=== PATIENT | female | born 1945 | race Caucasian/White ===

== ENCOUNTER 2016-10-03 16:46 | Inpatient (IN) | payer OTHER, BC ==
[2016-10-03 17:08] VITALS: BMI 24.7
--- NOTE | 2016-10-03 17:08 | PDOC ---
[id number]: Clinical Condition - History of Present Illness Initial Comments: 10/03/16 17:28 The patient is a 71 year old female with history of COPD, schizophrenia, anxiety /depression, sent from [facility] s/p fall with head injury. The patient is unable to describe the mechanism of the fall, but presents with pain, swelling, and bruising to her left forehead. No LOC. On evaluation, the patient complains of difficulty breathing. Patient noted to have O2 sat of 94 on 2L O2. No fever or chills. No chest pain. No wheezing or hemoptysis. No nausea, vomiting, or diarrhea. No headache, visual changes, paresthesias, or acute focal weakness. History limited secondary to patient's clinical condition. <Xiao Farrar - Last Filed: 10/03/16 20:08> <Betsy Cunningham - Last Filed: 10/03/16 20:14> - General Chief Complaint: Injury Stated Complaint: shortness of breath Time Seen by Provider: 10/03/16 17:00 Past History <Xiao Farrar - Last Filed: 10/03/16 20:08> - Past Medical History COPD: Yes - Psycho/Social/Smoking Cessation Hx Anxiety: Yes Suicidal Ideation: No Smoking Status: No Smoking History: Former smoker Have you smoked in the past 12 months: No Number of Cigarettes Smoked Daily: 0 If you are a former smoker, when did you quit?: 3 years ago Information on smoking cessation initiated: No Hx Alcohol Use: No Drug/Substance Use Hx: No Substance Use Type: None Hx Substance Use Treatment: No <Betsy Cunningham - Last Filed: 10/03/16 20:14> - Past Medical History Allergies/Adverse Reactions: Allergies Allergy/AdvReac Type Severity Reaction Status Date / Time penicillinase Allergy Unknown Verified 10/03/16 17:03 Home Medications: Ambulatory Orders Acetaminophen [Tylenol] 650 mg PO QID 10/03/16 Lorazepam [Ativan] 1 mg PO TID 10/03/16 Mirtazapine [Remeron -] 30 mg PO DAILY 10/03/16 Nitroglycerin [Nitrostat] 0.4 mg SL PRN PRN 10/03/16 Pantoprazole Sodium 40 mg PO DAILY 10/03/16 Sodium Chloride 1,000 gm PO TID 10/03/16 Tiotropium [place] [Spiriva] 18 mcg IH DAILY 10/03/16 Verapamil HCl [Verapamil ER] 120 mg PO DAILY 10/03/16 Review of Systems - Review of Systems Able to Perform ROS?: Yes Comments:: 10/03/16 17:34 CONSTITUTIONAL: Absent: fever, chills, diaphoresis, generalized weakness, malaise, loss of appetite HEENT: Absent: rhinorrhea, nasal congestion, throat pain, throat swelling, difficulty swallowing, mouth swelling, ear pain, eye pain, visual Changes CARDIOVASCULAR: Absent: chest pain, syncope, palpitations, irregular heart rate, lightheadedness , peripheral edema RESPIRATORY: Present: dyspnea Absent: cough, wheezing, stridor, hemoptysis GASTROINTESTINAL: Absent: abdominal pain, abdominal distension, nausea, vomiting, diarrhea, constipation, melena, hematochezia GENITOURINARY: Absent: dysuria, frequency, urgency, hesitancy, hematuria, flank pain, genital pain MUSCULOSKELETAL: Absent: myalgia, arthralgia, joint swelling SKIN: Present: pain, swelling, bruising to l forehead Absent: rash, itching, pallor HEMATOLOGIC/IMMUNOLOGIC: Absent: easy bleeding, easy bruising, lymphadenopathy, frequent infections ENDOCRINE: Absent: unexplained weight gain, unexplained weight loss, heat intolerance, cold intolerance NEUROLOGIC: Absent: headache, focal weakness or paresthesias, dizziness, unsteady gait, seizure, mental status changes, bladder or bowel incontinence PSYCHIATRIC: Present: +anxiety Absent: suicidal or homicidal ideation, hallucinations. <Xiao Farrar - Last Filed: 10/03/16 20:08> *Physical Exam - Vital Signs Last Vital Signs Temp Pulse Resp BP Pulse Ox 98.5 F 72 32 H 124/60 93 L 10/03/16 17:03 10/03/16 17:03 10/03/16 17:03 10/03/16 17:03 10/03/16 17:03 - Physical Exam Comments: 10/03/16 17:36 GENERAL: Well developed, well nourished. Awake and alert. Follows simple commands. HEENT: Normocephalic. 8 cm ecchymoses to L forehead with an overlying superficial laceration. PERRLA, EOMI. No conjunctival pallor. Sclera are non-icteric. Moist mucous membranes. Oropharynx is clear. NECK: Supple. Full ROM. No JVD. Carotid pulses 2+ and symmetric, without bruits. No thyromegaly. No lymphadenopathy. CARDIOVASCULAR: Regular rate and rhythm. No murmurs, rubs, or gallops. Distal pulses are 2+ and symmetric. PULMONARY: Mild respiratory distress. Increased respiratory rate. Diffuse rhonchi and rales in all lung jennings. ABDOMINAL: Soft, protuberant. Non-tender. No rebound or guarding. No organomegaly. Normoactive bowel sounds. MUSCULOSKELETAL Normal range of motion at all joints. No bony deformities or tenderness. No CVA tenderness. No cervical or midline spiny tenderness. EXTREMITIES: +1 pitting edema of the lower extremities bilaterally. No cyanosis. No clubbing. No calf tenderness. SKIN: Warm and dry. Normal capillary refill. No rashes. No jaundice. NEUROLOGICAL: Alert, awake, appropriate. Cranial nerves 2-12 intact. No deficits to light touch and temperature in face, upper extremities and lower extremities. Contracted left arm. Resting tremor in the right foot. Normal speech. Gait deferred. PSYCHIATRIC: Cooperative. Good eye contact. Appropriate mood and affect. <Xiao Farrar - Last Filed: 10/03/16 20:08> - Vital Signs Last Vital Signs Temp Pulse Resp BP Pulse Ox 98.5 F 72 32 H 124/60 93 L 10/03/16 17:03 10/03/16 17:03 10/03/16 17:03 10/03/16 17:03 10/03/16 17:03 <Betsy Cunningham - Last Filed: 10/03/16 20:14> ED Treatment Course - LABORATORY CBC & Chemistry Diagram: 10/03/16 17:20 10/03/16 17:20 - RADIOLOGY Radiograph Interpretation: 10/03/16 19:00 Chest x-ray, read and interpreted by Dr. Stock, shows left basilar infiltrate, advanced centrilobular emphysema. Possible 2 cm right mid lung field nodule. 10/03/16 19:[address], read and interpreted by Dr. Stock, shows no evidence of acute intracranial pathology. <Xiao Farrar - Last Filed: 10/03/16 20:08> - LABORATORY CBC & Chemistry Diagram: 10/03/16 17:20 10/03/16 17:20 <Betsy Cunningham - Last Filed: 10/03/16 20:14> Medical Decision Making - Critical Care Time Total Critical Care Time (minutes): 90 Critical Care Statement: The care of this patient involved high complexity decision making to prevent further life threatening deterioration of the patient 's condition and/or to evalute & treat vital organ system(s) failure or risk of failure. - Medical Decision Making 10/03/16 19:09 Laboratory Tests 10/03/16 10/03/16 17:20 18:14 ABG pH 7.31 L ABG pCO2 at Pt Temp 81.7 H* D ABG pO2 at Pt Temp 60.9 L ABG HCO3 40.0 H ABG O2 Sat (Measured) 88.5 L ABG O2 Content 11.7 L ABG Base Excess 11.8 H B-Natriuretic Peptide 1110.10 H Labs reviewed. Call placed to Dr. Owusu, who admits for [facility], at [phone]. Awaiting callback. 10/03/16 20:[address] Owusu, who agrees to admission. <Xiao Farrar - Last Filed: 10/03/16 20:08> - Critical Care Time Total Critical Care Time (minutes): 90 Critical Care Statement: The care of this patient involved high complexity decision making to prevent further life threatening deterioration of the patient 's condition and/or to evalute & treat vital organ system(s) failure or risk of failure. - Medical Decision Making 10/03/16 17:15 71 yo female BIBA from [facility] after an unwitnessed fall. Pt has 8 cm ecchymosis on left forehead . She appears to be in moderate resp distress and EMS states she was 93% pulse ox on 2 L nasal cannula at the NE pt is alert and c/o diff breathing -she has diffuse rhonchi in all lung jennings plan- cxr/combivent/steroids/ct head /ekg/cbc/comp/cardiac enzymes/admission - 10/03/16 18:30 cxr LLL infiltrates, pt started on antibiotics ABG pco2=81 , pt placed on bipap to try to reduce co2 ,she's retaining , ph= 7.31. LActic acid is normal labs reviewed [id number] 10/03/16 18:39 UA ++nitrites,++wbc treatment-antibiotics, pt on bipap,resp treatments 10/03/16 19:10 IMP LLL infiltrates,copd exacerbation,UTI admit,paging Dr Laughlin now 10/03/16 19:18 [facility]south noncardiac admission, Dr Nicole Laughlin admitted the pt 10/03/16 20:13 <Betsy Cunningham - Last Filed: 10/03/16 20:14> *DC/Admit/Observation/Transfer - Attestations Scribe Attestion: 10/03/16 17:41 Documentation prepared by Xiao Farrar, acting as clinical specialist medical device for Betsy Cunningham MD. <Xiao Farrar - Last Filed: 10/03/16 20:08> - Discharge Dispostion Admit: Yes <Betsy Cunningham - Last Filed: 10/03/16 20:14> Diagnosis at time of Disposition: COPD exacerbation, Hyponatremia UTI (urinary tract infection) Qualifiers: Urinary tract infection type: site unspecified Hematuria presence: without hematuria Qualified Code(s): N39.0 - Urinary tract infection, site not specified Head injury due to trauma Qualifiers: Encounter type: initial encounter Qualified Code(s): S09.90XA - Unspecified injury of head, initial encounter Pneumonia Qualifiers: Pneumonia type: due to unspecified organism Laterality: left Lung location: lower lobe of lung Qualified Code(s): J18.1 - Lobar pneumonia, unspecified organism - Referrals
[2016-10-03] MEDS ORDERED: ALBUTEROL SO4 2.5/IPRATROPIUM 0.5 INH SOL 3 ML VIAL.NEB. NEB STA (17:09)
[2016-10-03] MEDS ORDERED: ALBUTEROL SO4 2.5/IPRATROPIUM 0.5 INH SOL 3 ML VIAL.NEB. NEB ONE ×2 (17:11→17:13)
[2016-10-03] MEDS ORDERED: methylPREDNISolone NA SUCC 125 MG/2 ML VIAL IVPB ONE (17:14)
[2016-10-03] MEDS ORDERED: LORazepam 1 MG TABLET PO ONE (17:20)
[2016-10-03 17:35] LABS: MCHC 32.4 g/dl (32.0-36.0); MEAN CELL VOLUME 86.3 fl (80-96); MEAN PLT VOLUME 6.6 fl (7.5-11.1); PLATELET COUNT 513 K/MM3 (134-434); RDW 14.9 % (11.6-15.6); WHITE BLOOD COUNT 21.5 K/mm3 (4.0-10.0)
[2016-10-03] MEDS ORDERED: LORAZEPAM CARPU-JECT 2 MG/ML DISP.SYRIN ONE (17:38)
[2016-10-03] MEDS ORDERED: methylPREDNISolone NA SUCC 125 MG/2 ML VIAL ONE (17:38)
[2016-10-03] MEDS ORDERED: LORazepam 0.5 MG TABLET ONE (17:42)
[2016-10-03 17:47] LABS: INR 1.28 (0.82-1.09); PROTHROMBIN TIME (PATIENT) 14.1 SEC (9.98-11.88)
[2016-10-03 18:16] LABS: ALBUMIN 2.3 g/dl (3.4-5.0); ANION GAP 8 (8-16); BILIRUBIN,TOTAL 0.2 mg/dL (0.2-1.0); CALCIUM 8.8 mg/dL (8.5-10.1); CO2 41 mmol/L (21-32); CREATININE 0.2 mg/dL (0.55-1.02); GLUCOSE,RANDOM 113 mg/dL (74-106); SGOT/AST 16 U/L (15-37); SGPT/ALT 13 U/L (12-78); TOT PROT 6.7 g/dl (6.4-8.2)
[2016-10-03 18:18] LABS: ALK PHOS 159 U/L (45-117); TROPONIN I < 0.02 ng/ml (0.00-0.05)
[2016-10-03] MEDS ORDERED: LEVOFLOXACIN 750 MG IVPB 150 ML IVPB ONE ×2 (18:18→18:32)
[2016-10-03 18:20] LABS: ALLENS TEST POSITIVE; ART PUNCT SITE LEFT RADIAL; ARTERIAL BLD GAS O2 SATURATION 88.5 % (90-98.9); ARTERIAL BLOOD GAS BASE EXCESS 11.8 meq/l (-2-2); LPM/O2% 2.5L; PT. ON O2? YES; TYPE OF O2 NASAL CANNULA
[2016-10-03 18:22] LABS: ARTERIAL BLOOD GAS pH 7.31 (7.35-7.45)
[2016-10-03 18:23] LABS: ARTERIAL BLOOD GAS PO2 60.9 mmHg (70-100)
[2016-10-03 18:48] LABS: URINE APPEARANCE SLCLOUDY; URINE BILIRUBIN NEGATIVE (NEGATIVE); URINE BLOOD NEGATIVE (NEGATIVE); URINE COLOR YELLOW; URINE GLUCOSE (UA) 1+ (NEGATIVE); URINE KETONE TRACE (NEGATIVE); URINE NITRITE POSITIVE (NEGATIVE); URINE UROBILINOGEN NEGATIVE E.U./dl (0.2-1.0)
[2016-10-03 18:50] LABS: URINE LEUK ESTERASE 2+ (NEGATIVE); URINE PROTEIN 1+ (NEGATIVE)
[2016-10-03 18:52] LABS: URINE BACTERIA RARE /hpf (NONE SEEN); URINE MUCUS MODERATE; URINE RBC 4 /hpf (0-3); URINE WBC 61 /hpf (3-5)
[2016-10-03 19:07] LABS: PLATELET ESTIMATE INCREASED (NORMAL); POLYCHROMASIA FEW
[2016-10-03] MEDS ORDERED: NITROGLYCERIN SUBLINGUAL 1/150 0.4 MG TAB SL PRN (20:53)
[2016-10-03] MEDS: LORazepam 1 MG TABLET PO PRN (22:00)
[2016-10-03] MEDS: SODIUM CHLORIDE 1 GM TABLET PO SCH (22:53)
[2016-10-04] MEDS: ALBUTEROL SO4 2.5/IPRATROPIUM 0.5 INH SOL 3 ML VIAL.NEB. NEB PRN ×2 (00:36→06:03)
[2016-10-04] MEDS: SODIUM CHLORIDE 1 GM TABLET PO SCH ×3 (05:31→21:44)
[2016-10-04] MEDS ORDERED: PT OWN MED DRAWER 7, Y5N ONE ×4 (06:23→21:41)
[2016-10-04 07:53] LABS: BASOPHIL 0.1 % (0-2.0); MCHC 32.7 g/dl (32.0-36.0); MEAN CELL VOLUME 85.8 fl (80-96); MEAN PLT VOLUME 6.8 fl (7.5-11.1); NEUTROPHILS 94.2 % (42.8-82.8); PLATELET COUNT 489 K/MM3 (134-434); RDW 14.8 % (11.6-15.6); WHITE BLOOD COUNT 11.7 K/mm3 (4.0-10.0)
[2016-10-04 08:23] LABS: ALBUMIN 2.1 g/dl (3.4-5.0); ALK PHOS 141 U/L (45-117); ANION GAP 5 (8-16); BILIRUBIN,TOTAL 0.2 mg/dL (0.2-1.0); CALCIUM 8.7 mg/dL (8.5-10.1); CO2 41 mmol/L (21-32); CREATININE 0.2 mg/dL (0.55-1.02); GLUCOSE,RANDOM 106 mg/dL (74-106); SGOT/AST 8 U/L (15-37); SGPT/ALT 14 U/L (12-78)
[2016-10-04] MEDS: LORazepam 1 MG TABLET PO PRN ×2 (08:27→21:44)
[2016-10-04] MEDS: ACLIDINIUM BROMIDE 400 MCG/INH AERO.POWD IH SCH ×2 (09:59→21:44)
[2016-10-04] MEDS: PANTOPRAZOLE 40 MG TABLET (FP) PO SCH (09:59)
[2016-10-04] MEDS: MIRTAZAPINE 15 MG TABLET (FP) PO SCH (09:59)
[2016-10-04] MEDS: LEVOFLOXACIN 500 MG IVPB 100 ML IVPB SCH (10:00)
[2016-10-04] MEDS: ACETAMINOPHEN 325 MG TABLET (FP) PO PRN (10:04)
--- NOTE | 2016-10-04 10:48 | CON.PULM ---
Consult Consult Specialty:: PULMONARY Referred by:: Dr. Owusu Reason for Consultation:: pneumonia, shortness of breath - History of Present Illness Chief Complaint: shortness of breath History of Present Illness: 71yo female with h/o COPD, former smoker, schizophrenia who was sent from the skilled nursing s/p fall with head trauma. No reported loss of consciousness. Noted to be short of breath, saturating 94% on 2L nasal cannula. She is a poor historian. No fevers or chills. +nonproductive cough without wheezing. No nausea , vomiting or diarrhea. No chest pain or palpitations. She had a CT chest October 2015 which showed a right sided 1.5cm nodule with unknown subsequent work up. She states that she is normally bed bound at the skilled nursing but can feed and dress herself. - History Source History Provided By: Patient, Medical Record Limitations to Obtaining History: Poor Historian - Past Medical History Pulmonary: Yes: COPD ...: No Psych: Yes: Anxiety, Depression, Schizophrenia - Alcohol/Substance Use Hx Alcohol Use: No - Smoking History Smoking history: Former smoker Have you smoked in the past 12 months: No Aproximately how many cigarettes per day: 0 If you are a former smoker, when did you quit?: 3 years ago Home Medications - Allergies Allergies/Adverse Reactions: Allergies Allergy/AdvReac Type Severity Reaction Status Date / Time penicillinase Allergy Unknown Verified 10/03/16 17:03 - Home Medications Home Medications: Ambulatory Orders Acetaminophen [Tylenol] 650 mg PO QID 10/03/16 Lorazepam [Ativan] 1 mg PO TID 10/03/16 Mirtazapine [Remeron -] 30 mg PO DAILY 10/03/16 Nitroglycerin [Nitrostat] 0.4 mg SL PRN PRN 10/03/16 Pantoprazole Sodium 40 mg PO DAILY 10/03/16 Sodium Chloride 1,000 gm PO TID 10/03/16 Tiotropium [place] [Spiriva] 18 mcg IH DAILY 10/03/16 Verapamil HCl [Verapamil ER] 120 mg PO DAILY 10/03/16 Family Disease History - Family Disease History Other Family History: non-contributory Review of Systems - Review of Systems Constitutional: denies: Chills, Fever Eyes: denies: Recent Change in Vision HENT: denies: Nasal Congestion, Throat Pain Neck: denies: Stiffness, Tenderness Cardiovascular: reports: Shortness of Breath. denies: Chest Pain, Edema, Palpitations Respiratory: reports: Cough, SOB on Exertion. denies: Hemoptysis, Wheezing Gastrointestinal: denies: Abdominal Pain, Diarrhea, Nausea, Vomiting Genitourinary: denies: Dysuria, Hematuria Neurological: denies: Dizziness, Headache Physical Exam Vital Sings: Vital Signs Temperature 98.5 F 10/04/16 05:54 Pulse Rate 87 10/04/16 05:54 Respiratory Rate 20 10/04/16 05:54 Blood Pressure 137/78 10/04/16 05:54 O2 Sat by Pulse Oximetry (%) 98 10/04/16 00:37 Constitutional: Yes: Mild Distress (mildly tachypneic at rest) Eyes: Yes: Conjunctiva Clear, EOM Intact HENT: Yes: Atraumatic, Normocephalic Neck: Yes: Supple, Trachea Midline Cardiovascular: Yes: Regular Rate and Rhythm Respiratory: Yes: Rhonchi, Wheezes ...Clubbing: No Gastrointestinal: Yes: Normal Bowel Sounds, Soft. No: Tenderness Edema: No Neurological: Yes: Alert Labs: CBC, BMP 10/04/16 06:15 10/04/16 06:15 ABG Results ABG pH 7.31 (7.35-7.45) L 10/03/16 18:14 ABG pCO2 at Pt Temp 81.7 mmHg (35-45) H* D 10/03/16 18:14 ABG pO2 at Pt Temp 60.9 mmHg (70-100) L 10/03/16 18:14 ABG HCO3 40.0 meq/L (22-26) H 10/03/16 18:14 ABG O2 Sat (Measured) 88.5 % (90-98.9) L 10/03/16 18:14 ABG O2 Content 11.7 % vol (15-22) L 10/03/16 18:14 ABG Base Excess 11.8 meq/l (-2-2) H 10/03/16 18:14 Imaging - Results Chest X-ray: Report Reviewed, Image Reviewed (LLL infiltrate) Problem List - Problems (1) Pneumonia Code(s): J18.9 - PNEUMONIA, UNSPECIFIED ORGANISM Qualifiers: Pneumonia type: due to unspecified organism Laterality: left Lung location: lower lobe of lung Qualified Code(s): J18.1 - Lobar pneumonia, unspecified organism (2) UTI (urinary tract infection) Code(s): N39.0 - URINARY TRACT INFECTION, SITE NOT SPECIFIED Qualifiers: Urinary tract infection type: site unspecified Hematuria presence: without hematuria Qualified Code(s): N39.0 - Urinary tract infection, site not specified (3) COPD exacerbation Code(s): J44.1 - CHRONIC OBSTRUCTIVE PULMONARY DISEASE W (ACUTE) EXACERBATION (4) Lung nodule Code(s): R91.1 - SOLITARY PULMONARY NODULE (5) Hyponatremia Code(s): E87.1 - HYPO-OSMOLALITY AND HYPONATREMIA (6) Schizophrenia Code(s): F20.9 - SCHIZOPHRENIA, UNSPECIFIED (7) Acute on chronic respiratory failure with hypoxia and hypercapnia Code(s): J96.21 - ACUTE AND CHRONIC RESPIRATORY FAILURE WITH HYPOXIA J96.22 - ACUTE AND CHRONIC RESPIRATORY FAILURE WITH HYPERCAPNIA Assessment/Plan LLL Pneumonia UTI Acute COPD Exacerbation Acute on Chronic Hypoxic and Hypercapneic Respiratory Failure Lung Nodule Schizophrenia - IV antibiotics - f/u cultures - IV medrol - inhaled bronchodilators - BiPAP as needed to assist in work of breathing - repeat ABG in AM - O2 to keep SpO2 >90% - will need repeat CT chest when more stable to re-evaluate lung nodule seen on prior imaging - DVT prophylaxis Thank you for this consult Eitan Liang MD
[2016-10-04] MEDS: VERAPAMIL HCL 120 MG CAP SUSTAINED RELEASE PO SCH (10:53)
[2016-10-04] MEDS ORDERED: ALBUTEROL SO4 0.083% IH SOL 2.5 MG/3 ML VIAL.NEB. NEB PRN (10:54)
--- NOTE | 2016-10-04 12:08 | HP ---
Admitting History and Physical - Primary Care Physician PCP: Eitan Jones - Admission Chief Complaint: resp distress History of Present Illness: ER HISTORY - History of Present Illness Initial Comments: 10/03/16 17:28 The patient is a 71 year old female with history of COPD, schizophrenia, anxiety /depression, sent from [facility] s/p fall with head injury. The patient is unable to describe the mechanism of the fall, but presents with pain, swelling, and bruising to her left forehead. No LOC. On evaluation, the patient complains of difficulty breathing. Patient noted to have O2 sat of 94 on 2L O2. No fever or chills. No chest pain. No wheezing or hemoptysis. No nausea, vomiting, or diarrhea. No headache, visual changes, paresthesias, or acute focal weakness. History limited secondary to patient's clinical condition. Pt seen by me in Tele She has non productive cough with difficulty breathing No chest pain She was sent from [place] for fall and head injury-- CT head negative Pt admitted for COPD exacerbation pneumonia Seen by Pulmonary History Source: Patient, Medical Record Limitations to Obtaining History: No Limitations - Past Medical History Pulmonary: Yes: COPD ...: No Psych: Yes: Anxiety, Depression, Schizophrenia - Smoking History Smoking history: Former smoker Have you smoked in the past 12 months: No Aproximately how many cigarettes per day: 0 If you are a former smoker, when did you quit?: 3 years ago - Alcohol/Substance Use Hx Alcohol Use: No Home Medications - Allergies Allergies/Adverse Reactions: Allergies Allergy/AdvReac Type Severity Reaction Status Date / Time penicillinase Allergy Unknown Verified 10/03/16 17:03 - Home Medications Home Medications: Ambulatory Orders Acetaminophen [Tylenol] 650 mg PO QID 10/03/16 Lorazepam [Ativan] 1 mg PO TID 10/03/16 Mirtazapine [Remeron -] 30 mg PO DAILY 10/03/16 Nitroglycerin [Nitrostat] 0.4 mg SL PRN PRN 10/03/16 Pantoprazole Sodium 40 mg PO DAILY 10/03/16 Sodium Chloride 1,000 gm PO TID 10/03/16 Tiotropium [place] [Spiriva] 18 mcg IH DAILY 10/03/16 Verapamil HCl [Verapamil ER] 120 mg PO DAILY 10/03/16 Family Disease History - Family Disease History Other Family History: non-contributory Review of Systems - Review of Systems Constitutional: denies: Chills, Fever Cardiovascular: denies: Chest Pain, Palpitations Respiratory: reports: Cough, SOB, Wheezing. denies: Hemoptysis Physical Examination Vital Signs: Vital Signs Temperature 98.4 F 10/04/16 10:00 Pulse Rate 97 H 10/04/16 10:00 Respiratory Rate 20 10/04/16 10:00 Blood Pressure 157/80 10/04/16 10:00 O2 Sat by Pulse Oximetry (%) 98 10/04/16 10:00 Constitutional: Yes: No Distress, Calm, Other (no signs of head injury) Cardiovascular: Yes: Regular Rate and Rhythm Respiratory: Yes: Diminished, Rhonchi Gastrointestinal: Yes: Normal Bowel Sounds, Soft. No: Distention, Tenderness Edema: No Psychiatric: Yes: Alert Labs: CBC, BMP 10/04/16 06:15 10/04/16 06:15 Imaging - Results Chest X-ray: Image Reviewed (copd emphysema nodule in rt lung) Cat Scan: Report Reviewed (ct head- negative) EKG: Image Reviewed (NSR) Problem List - Problems (1) Acute on chronic respiratory failure with hypoxia and hypercapnia Code(s): J96.21 - ACUTE AND CHRONIC RESPIRATORY FAILURE WITH HYPOXIA J96.22 - ACUTE AND CHRONIC RESPIRATORY FAILURE WITH HYPERCAPNIA (2) COPD exacerbation Code(s): J44.1 - CHRONIC OBSTRUCTIVE PULMONARY DISEASE W (ACUTE) EXACERBATION (3) Head injury due to trauma Code(s): S09.90XA - UNSPECIFIED INJURY OF HEAD, INITIAL ENCOUNTER Qualifiers: Encounter type: initial encounter Qualified Code(s): S09.90XA - Unspecified injury of head, initial encounter (4) Hyponatremia Code(s): E87.1 - HYPO-OSMOLALITY AND HYPONATREMIA (5) Lung nodule Code(s): R91.1 - SOLITARY PULMONARY NODULE (6) Schizophrenia Code(s): F20.9 - SCHIZOPHRENIA, UNSPECIFIED Assessment/Plan PLAN IV antibiotics Nebs Solumedrol CT chest pending to evaluate right lung nodule Pulmonary eval appreciated DVT prophylaxis Renal consult for hyponatremia-- [place] labs showed Na 132 on 09/05/16 check serum osmolarity. Urine osmolarity
[2016-10-04] MEDS: methylPREDNISolone NA SUCC 40 MG/1 ML VIAL IVPB SCH ×2 (12:12→17:41)
[2016-10-04] MEDS: ALBUTEROL SO4 2.5/IPRATROPIUM 0.5 INH SOL 3 ML VIAL.NEB. NEB SCH ×3 (12:22→23:55)
--- NOTE | 2016-10-04 13:32 | EKG ---
Test Reason : Blood Pressure : / mmHG Vent. Rate : 079 BPM Atrial Rate : 079 BPM P-R Int : 136 ms QRS Dur : 082 ms QT Int : 358 ms P-R-T Axes : 068 063 073 degrees QTc Int : 410 ms SINUS RHYTHM WITH PREMATURE ATRIAL COMPLEXES WITH ABERRANT CONDUCTION OTHERWISE NORMAL ECG WHEN COMPARED WITH ECG OF 25-SEP-2012 09:48, ABERRANT CONDUCTION IS NOW PRESENT Confirmed by ALEXUS ZIMMER, JUAN ([id number]) on 10/04/2016 1:32:01 PM Referred By: Confirmed By:JUAN VAUGHAN MD
--- NOTE | 2016-10-04 16:49 | CONSULT ---
Consult Consult Specialty:: Nephrology Reason for Consultation:: hyponatremia - History of Present Illness Chief Complaint: s/p fall History of Present Illness: Pt is a 71 year old male with pmhx of COPD, schizophrenia and depression who was sent in from the [place] after a fall. She was found to be hyponatremic and I was called to evaluate her. She complains of decreased appetite. She says she does try to drink fluids. She has had about half a liter of water already by this afternoon. She does complain of shortness of breath. She denies dysuria or hematuria. Pt does have history of hyponatremia and is on sodium chloride tablets. - History Source History Provided By: Patient, Medical Record - Past Medical History Pulmonary: Yes: COPD Renal/: Yes: Other (hyponatremia) ...: No Psych: Yes: Anxiety, Depression, Schizophrenia - Alcohol/Substance Use Hx Alcohol Use: No - Smoking History Smoking history: Former smoker Have you smoked in the past 12 months: No Aproximately how many cigarettes per day: 0 If you are a former smoker, when did you quit?: 3 years ago Home Medications - Allergies Allergies/Adverse Reactions: Allergies Allergy/AdvReac Type Severity Reaction Status Date / Time penicillinase Allergy Unknown Verified 10/03/16 17:03 - Home Medications Home Medications: Ambulatory Orders Acetaminophen [Tylenol] 650 mg PO QID 10/03/16 Lorazepam [Ativan] 1 mg PO TID 10/03/16 Mirtazapine [Remeron -] 30 mg PO DAILY 10/03/16 Nitroglycerin [Nitrostat] 0.4 mg SL PRN PRN 10/03/16 Pantoprazole Sodium 40 mg PO DAILY 10/03/16 Sodium Chloride 1,000 gm PO TID 10/03/16 Tiotropium [place] [Spiriva] 18 mcg IH DAILY 10/03/16 Verapamil HCl [Verapamil ER] 120 mg PO DAILY 10/03/16 Family Disease History - Family Disease History Family History: Denies Other Family History: non-contributory Review of Systems - Review of Systems Constitutional: reports: Malaise HENT: reports: No Symptoms Neck: reports: No Symptoms Cardiovascular: reports: Shortness of Breath Respiratory: reports: No Symptoms Gastrointestinal: reports: No Symptoms Genitourinary: reports: No Symptoms Musculoskeletal: reports: No Symptoms Integumentary: reports: No Symptoms Neurological: reports: No Symptoms Endocrine: reports: No Symptoms Hematology/Lymphatic: reports: No Symptoms Psychiatric: reports: No Symptoms Physical Exam Vital Signs: Vital Signs Temperature 98.7 F 10/04/16 15:00 Pulse Rate 98 H 10/04/16 15:00 Respiratory Rate 18 10/04/16 15:00 Blood Pressure 135/63 10/04/16 15:00 O2 Sat by Pulse Oximetry (%) 98 10/04/16 10:00 Constitutional: Yes: Calm Cardiovascular: Yes: JVD, S1, S2 Respiratory: Yes: On Nasal O2 Gastrointestinal: Yes: Soft Renal/: Yes: WNL Musculoskeletal: Yes: WNL Extremities: Yes: WNL Edema: No Neurological: Yes: Oriented Psychiatric: Yes: Oriented Labs: CBC, BMP 10/04/16 06:15 10/04/16 06:15 Laboratory Tests 07/29/10 07/30/10 08/01/10 13:19 08:00 08:00 Sodium 128 L 131 L 131 L Potassium Chloride Carbon Dioxide Anion Gap 09/01/10 09/23/12 09/24/12 17:00 07:30 06:00 Sodium 128 L 141 141 Potassium Chloride Carbon Dioxide Anion Gap 09/27/12 09/28/12 10/03/16 06:00 06:00 17:20 Sodium 140 141 126 L D Potassium Chloride Carbon Dioxide Anion Gap 10/04/16 06:15 Sodium 125 L Potassium 4.8 Chloride 79 L Carbon Dioxide 41 H Anion Gap 5 L Imaging - Results Chest X-ray: Report Reviewed Cat Scan: Report Reviewed (right upper lobe mass) Problem List - Problems (1) COPD exacerbation Code(s): J44.1 - CHRONIC OBSTRUCTIVE PULMONARY DISEASE W (ACUTE) EXACERBATION (2) Head injury due to trauma Code(s): S09.90XA - UNSPECIFIED INJURY OF HEAD, INITIAL ENCOUNTER Qualifiers: Encounter type: initial encounter Qualified Code(s): S09.90XA - Unspecified injury of head, initial encounter (3) Hyponatremia Code(s): E87.1 - HYPO-OSMOLALITY AND HYPONATREMIA (4) Lung nodule Code(s): R91.1 - SOLITARY PULMONARY NODULE (5) Schizophrenia Code(s): F20.9 - SCHIZOPHRENIA, UNSPECIFIED (6) UTI (urinary tract infection) Code(s): N39.0 - URINARY TRACT INFECTION, SITE NOT SPECIFIED Qualifiers: Urinary tract infection type: site unspecified Hematuria presence: without hematuria Qualified Code(s): N39.0 - Urinary tract infection, site not specified Assessment/Plan Current Medications Generic Name Dose Route Start Last Admin Trade Name Freq PRN Reason Stop Dose Admin Acetaminophen 650 mg 10/03/16 20:53 10/04/16 10:04 Tylenol - PO 650 mg Q6H PRN Administration BACK PAIN Aclidinium [place] 1 puff 10/04/16 10:00 10/04/16 09:59 Tudorza - IH 1 puff BID ARIEL Administration Albuterol Sulfate 1 amp 10/04/16 10:54 Ventolin 0.083% Nebulizer Soln - NEB Q4H PRN SHORT OF BREATH/WHEEZING Albuterol/Ipratropium 1 amp 10/04/16 12:00 10/04/16 12:22 Duoneb - NEB Not Given QIDR ARIEL Heparin Sodium (Porcine) 5,000 unit 10/04/16 22:00 Heparin - SQ BID ARIEL Levofloxacin 100 mls @ 100 mls/hr 10/04/16 10:00 10/04/16 10:00 Levaquin 500 Mg Premixed Ivpb - IVPB 100 mls/hr DAILY [facility] Administration Lorazepam 1 mg 10/03/16 20:53 10/04/16 08:27 Ativan - PO 1 mg TID PRN Administration ANXIETY Methylprednisolone Sodium Succinate 40 mg 10/04/16 11:00 10/04/16 12:12 Solu-Medrol - IVPB 40 mg Q8H-IV ARIEL Administration Mirtazapine 30 mg 10/04/16 10:00 10/04/16 09:59 Remeron - PO 30 mg DAILY ARIEL Administration Nitroglycerin 0.4 mg 10/03/16 20:53 Nitrostat - SL PRN PRN FOR CHEST PAIN Pantoprazole Sodium 40 mg 10/04/16 10:00 10/04/16 09:59 Protonix - PO 40 mg DAILY ARIEL Administration Sodium Chloride 1 gm 10/03/16 22:00 10/04/16 14:24 Sodium Chloride Tablet - PO 1 gm TID ARIEL Administration Verapamil HCl 120 mg 10/04/16 10:00 10/04/16 10:53 Calan Sr Capsule - PO 120 mg DAILY ARIEL Administration Impression 1. hyponatremia 2. schizophrenia 3. lung mass 4. COPD 5. anxiety Plan - start fluid restriction - repeat labs in am - if sodium does not improve with restriction will consider small dose of lasix - cont with salt tabs - likely siadh, there is a lung mass - check plasma and urine osm, tsh and cortisol - will follow Dr Yates
[2016-10-04] MEDS: HEPARIN NA (PORCINE) 5,000 UNITS/ML 1ML VIAL SQ SCH (21:44)
[2016-10-05] MEDS: methylPREDNISolone NA SUCC 40 MG/1 ML VIAL IVPB SCH ×3 (02:12→17:40)
[2016-10-05] MEDS: SODIUM CHLORIDE 1 GM TABLET PO SCH ×3 (05:54→21:03)
[2016-10-05] MEDS: ALBUTEROL SO4 2.5/IPRATROPIUM 0.5 INH SOL 3 ML VIAL.NEB. NEB SCH ×4 (06:37→23:10)
[2016-10-05 07:35] LABS: ARTERIAL BLD GAS O2 SATURATION 93.8 % (90-98.9); ARTERIAL BLOOD GAS BASE EXCESS 16.7 meq/l (-2-2); ARTERIAL BLOOD GAS PO2 73.1 mmHg (70-100); ARTERIAL BLOOD GAS pH 7.35 (7.35-7.45)
[2016-10-05 07:37] LABS: ALLENS TEST POSITIVE; ART PUNCT SITE RIGHT RADIAL; LPM/O2% 3L; PT. ON O2? YES; TYPE OF O2 NASAL
[2016-10-05] MEDS: LORazepam 1 MG TABLET PO PRN ×2 (08:04→21:03)
[2016-10-05 08:12] LABS: CREATININE < 0.2 mg/dL (0.55-1.02); GLUCOSE,RANDOM 121 mg/dL (74-106)
[2016-10-05 08:47] LABS: ANION GAP 5 (8-16); CO2 45 mmol/L (21-32)
[2016-10-05] MEDS ORDERED: PT OWN MED DRAWER 7, Y5N ONE ×3 (09:42→20:58)
[2016-10-05] MEDS: HEPARIN NA (PORCINE) 5,000 UNITS/ML 1ML VIAL SQ SCH ×2 (09:48→21:02)
[2016-10-05] MEDS: LEVOFLOXACIN 500 MG IVPB 100 ML IVPB SCH (09:49)
[2016-10-05] MEDS: PANTOPRAZOLE 40 MG TABLET (FP) PO SCH (09:49)
[2016-10-05] MEDS: MIRTAZAPINE 15 MG TABLET (FP) PO SCH (09:49)
[2016-10-05] MEDS: VERAPAMIL HCL 120 MG CAP SUSTAINED RELEASE PO SCH (09:49)
[2016-10-05] MEDS: ACLIDINIUM BROMIDE 400 MCG/INH AERO.POWD IH SCH ×2 (10:05→21:01)
--- NOTE | 2016-10-05 10:10 | PN ---
Progress Note, Physician Chief Complaint: pt apparently drinking whole pitcher of water has coughing and congestion removed BIPAP last night - Current Medication List Current Medications: Active Medications Acetaminophen (Tylenol -) 650 mg PO Q6H PRN PRN Reason: BACK PAIN Last Admin: 10/04/16 10:04 Dose: 650 mg Aclidinium [place] (Tudorza -) 1 puff IH BID [facility] Last Admin: 10/05/16 10:05 Dose: Not Given Albuterol Sulfate (Ventolin 0.083% Nebulizer Soln -) 1 amp NEB Q4H PRN PRN Reason: SHORT OF BREATH/WHEEZING Albuterol/Ipratropium (Duoneb -) 1 amp NEB QIDR [facility] Last Admin: 10/05/16 06:37 Dose: Not Given Heparin Sodium (Porcine) (Heparin -) 5,000 unit SQ BID [facility] Last Admin: 10/05/16 09:48 Dose: 5,000 unit Levofloxacin (Levaquin 500 Mg Premixed Ivpb -) 100 mls @ 100 mls/hr IVPB DAILY [facility] Last Admin: 10/05/16 09:49 Dose: 100 mls/hr Lorazepam (Ativan -) 1 mg PO TID PRN PRN Reason: ANXIETY Last Admin: 10/05/16 08:04 Dose: 1 mg Methylprednisolone Sodium Succinate (Solu-Medrol -) 40 mg IVPB Q8H-IV [facility] Last Admin: 10/05/16 09:48 Dose: 40 mg Mirtazapine (Remeron -) 30 mg PO DAILY [facility] Last Admin: 10/05/16 09:49 Dose: 30 mg Nitroglycerin (Nitrostat -) 0.4 mg SL PRN PRN PRN Reason: FOR CHEST PAIN Pantoprazole Sodium (Protonix -) 40 mg PO DAILY [facility] Last Admin: 10/05/16 09:49 Dose: 40 mg Sodium Chloride (Sodium Chloride Tablet -) 1 gm PO TID [facility] Last Admin: 10/05/16 05:54 Dose: Not Given Verapamil HCl (Calan Sr Capsule -) 120 mg PO DAILY [facility] Last Admin: 10/05/16 09:49 Dose: 120 mg - Objective Vital Signs: Vital Signs Temperature 98.1 F 10/05/16 06:00 Pulse Rate 86 10/05/16 06:00 Respiratory Rate 18 10/05/16 06:00 Blood Pressure 125/75 10/05/16 06:00 O2 Sat by Pulse Oximetry (%) 96 10/04/16 22:00 Constitutional: Yes: No Distress Cardiovascular: Yes: Regular Rate and Rhythm Respiratory: Yes: Diminished, Rales, Rhonchi Gastrointestinal: Yes: Normal Bowel Sounds, Soft, Abdomen, Obese. No: Distention, Tenderness Edema: No Labs: CBC, BMP 10/04/16 06:15 10/05/16 06:00 INR, PTT INR 1.28 (0.82-1.09) H 10/03/16 17:20 Problem List - Problems (1) Acute on chronic respiratory failure with hypoxia and hypercapnia Code(s): J96.21 - ACUTE AND CHRONIC RESPIRATORY FAILURE WITH HYPOXIA J96.22 - ACUTE AND CHRONIC RESPIRATORY FAILURE WITH HYPERCAPNIA (2) COPD exacerbation Code(s): J44.1 - CHRONIC OBSTRUCTIVE PULMONARY DISEASE W (ACUTE) EXACERBATION (3) Head injury due to trauma Code(s): S09.90XA - UNSPECIFIED INJURY OF HEAD, INITIAL ENCOUNTER Qualifiers: Encounter type: initial encounter Qualified Code(s): S09.90XA - Unspecified injury of head, initial encounter (4) Hyponatremia Code(s): E87.1 - HYPO-OSMOLALITY AND HYPONATREMIA (5) Lung nodule Code(s): R91.1 - SOLITARY PULMONARY NODULE (6) Schizophrenia Code(s): F20.9 - SCHIZOPHRENIA, UNSPECIFIED Assessment/Plan PLAN IV antibiotics Nebs Solumedrol CT chest nodule Right upper lobe suspicious-- needs biopsy-- will consult with IR Pulmonary eval appreciated DVT prophylaxis Na improving -- likely dilutional hyponatremia due to increased water intake
[2016-10-05 10:40] LABS: OSMOLALITY,SERUM 276 mosm/kg (278-305)
[2016-10-05] MEDS: ACETAMINOPHEN 325 MG TABLET (FP) PO PRN ×2 (13:35→19:03)
--- NOTE | 2016-10-05 14:24 | PN ---
Progress Note (short form) - Note Progress Note: PULMONARY States breathing is about the same but appears more comfortable. Last Vital Signs Temp Pulse Resp BP Pulse Ox 99 F 99 H 18 111/53 96 10/05/16 14:20 10/05/16 14:20 10/05/16 14:20 10/05/16 14:20 10/04/16 22:00 Gen: less tachypneic Heart: RRR Lung: scattered rhonchi Abd: soft, nontender Ext: no edema CBC, BMP 10/04/16 06:15 10/05/16 06:00 ABG Results ABG pH 7.35 (7.35-7.45) 10/05/16 07:25 ABG pCO2 at Pt Temp 84.2 mmHg (35-45) H* 10/05/16 07:25 ABG pO2 at Pt Temp 73.1 mmHg (70-100) D 10/05/16 07:25 ABG HCO3 45.0 meq/L (22-26) H* 10/05/16 07:25 ABG O2 Sat (Measured) 93.8 % (90-98.9) 10/05/16 07:25 ABG O2 Content 12.9 % vol (15-22) L 10/05/16 07:25 ABG Base Excess 16.7 meq/l (-2-2) H* 10/05/16 07:25 Active Medications Acetaminophen (Tylenol -) 650 mg PO Q6H PRN PRN Reason: BACK PAIN Last Admin: 10/05/16 13:35 Dose: 650 mg Aclidinium [place] (Tudorza -) 1 puff IH BID [facility] Last Admin: 10/05/16 10:05 Dose: Not Given Albuterol Sulfate (Ventolin 0.083% Nebulizer Soln -) 1 amp NEB Q4H PRN PRN Reason: SHORT OF BREATH/WHEEZING Albuterol/Ipratropium (Duoneb -) 1 amp NEB QIDR [facility] Last Admin: 10/05/16 12:10 Dose: Not Given Heparin Sodium (Porcine) (Heparin -) 5,000 unit SQ BID [facility] Last Admin: 10/05/16 09:48 Dose: 5,000 unit Levofloxacin (Levaquin 500 Mg Premixed Ivpb -) 100 mls @ 100 mls/hr IVPB DAILY [facility] Last Admin: 10/05/16 09:49 Dose: 100 mls/hr Lorazepam (Ativan -) 1 mg PO TID PRN PRN Reason: ANXIETY Last Admin: 10/05/16 08:04 Dose: 1 mg Methylprednisolone Sodium Succinate (Solu-Medrol -) 40 mg IVPB Q8H-IV [facility] Last Admin: 10/05/16 09:48 Dose: 40 mg Mirtazapine (Remeron -) 30 mg PO DAILY [facility] Last Admin: 10/05/16 09:49 Dose: 30 mg Nitroglycerin (Nitrostat -) 0.4 mg SL PRN PRN PRN Reason: FOR CHEST PAIN Pantoprazole Sodium (Protonix -) 40 mg PO DAILY [facility] Last Admin: 10/05/16 09:49 Dose: 40 mg Sodium Chloride (Sodium Chloride Tablet -) 1 gm PO TID [facility] Last Admin: 10/05/16 05:54 Dose: Not Given Verapamil HCl (Calan Sr Capsule -) 120 mg PO DAILY [facility] Last Admin: 10/05/16 09:49 Dose: 120 mg A/P UTI Acute COPD Exacerbation Acute on Chronic Hypoxic and Hypercapneic Respiratory Failure Lung Nodule Schizophrenia - continue antibiotics - f/u cultures - continue medrol - inhaled bronchodilators - BiPAP as needed to assist in work of breathing - O2 to keep SpO2 >90% - DVT prophylaxis - will need biopsy of lung nodule at some point which can be done as outpt Problem List - Problems (1) Pneumonia Code(s): J18.9 - PNEUMONIA, UNSPECIFIED ORGANISM Qualifiers: Pneumonia type: due to unspecified organism Laterality: left Lung location: lower lobe of lung Qualified Code(s): J18.1 - Lobar pneumonia, unspecified organism (2) UTI (urinary tract infection) Code(s): N39.0 - URINARY TRACT INFECTION, SITE NOT SPECIFIED Qualifiers: Urinary tract infection type: site unspecified Hematuria presence: without hematuria Qualified Code(s): N39.0 - Urinary tract infection, site not specified (3) COPD exacerbation Code(s): J44.1 - CHRONIC OBSTRUCTIVE PULMONARY DISEASE W (ACUTE) EXACERBATION (4) Lung nodule Code(s): R91.1 - SOLITARY PULMONARY NODULE (5) Hyponatremia Code(s): E87.1 - HYPO-OSMOLALITY AND HYPONATREMIA (6) Schizophrenia Code(s): F20.9 - SCHIZOPHRENIA, UNSPECIFIED (7) Acute on chronic respiratory failure with hypoxia and hypercapnia Code(s): J96.21 - ACUTE AND CHRONIC RESPIRATORY FAILURE WITH HYPOXIA J96.22 - ACUTE AND CHRONIC RESPIRATORY FAILURE WITH HYPERCAPNIA
[2016-10-05] MEDS ORDERED: MAG HYDROX/AL HYDROX/SIMETH 30 ML UNIT-DOSE CUP PO ONE (15:45)
--- NOTE | 2016-10-05 18:54 | PN ---
Progress Note, Physician History of Present Illness: Renal F/u Serum Na much improved on the fluid restriction Pt c/o thirst No N/V or diarrhea - Current Medication List Current Medications: Active Medications Acetaminophen (Tylenol -) 650 mg PO Q6H PRN PRN Reason: BACK PAIN Last Admin: 10/05/16 13:35 Dose: 650 mg Aclidinium [place] (Tudorza -) 1 puff IH BID [facility] Last Admin: 10/05/16 10:05 Dose: Not Given Albuterol Sulfate (Ventolin 0.083% Nebulizer Soln -) 1 amp NEB Q4H PRN PRN Reason: SHORT OF BREATH/WHEEZING Last Admin: 10/05/16 14:53 Dose: 1 amp Albuterol/Ipratropium (Duoneb -) 1 amp NEB QIDR [facility] Last Admin: 10/05/16 12:10 Dose: Not Given Heparin Sodium (Porcine) (Heparin -) 5,000 unit SQ BID [facility] Last Admin: 10/05/16 09:48 Dose: 5,000 unit Levofloxacin (Levaquin 500 Mg Premixed Ivpb -) 100 mls @ 100 mls/hr IVPB DAILY [facility] Last Admin: 10/05/16 09:49 Dose: 100 mls/hr Lorazepam (Ativan -) 1 mg PO TID PRN PRN Reason: ANXIETY Last Admin: 10/05/16 08:04 Dose: 1 mg Methylprednisolone Sodium Succinate (Solu-Medrol -) 40 mg IVPB Q8H-IV [facility]EL Last Admin: 10/05/16 17:40 Dose: 40 mg Mirtazapine (Remeron -) 30 mg PO DAILY [facility] Last Admin: 10/05/16 09:49 Dose: 30 mg Nitroglycerin (Nitrostat -) 0.4 mg SL PRN PRN PRN Reason: FOR CHEST PAIN Pantoprazole Sodium (Protonix -) 40 mg PO DAILY [facility] Last Admin: 10/05/16 09:49 Dose: 40 mg Sodium Chloride (Sodium Chloride Tablet -) 1 gm PO TID [facility] Last Admin: 10/05/16 14:37 Dose: 1 gm Verapamil HCl (Calan Sr Capsule -) 120 mg PO DAILY [facility] Last Admin: 10/05/16 09:49 Dose: 120 mg - Objective Vital Signs: Vital Signs Temperature 100.3 F H 03/16/17 17:22 Pulse Rate 92 H 10/05/16 17:22 Respiratory Rate 20 10/05/16 17:22 Blood Pressure 138/79 10/05/16 17:22 O2 Sat by Pulse Oximetry (%) 95 10/05/16 14:30 Constitutional: Yes: Calm Cardiovascular: Yes: S1, S2 Respiratory: Yes: Rhonchi Gastrointestinal: Yes: Soft. No: Tenderness, Rebound Edema: No Labs: CBC, BMP 10/04/16 06:15 10/05/16 06:00 INR, PTT INR 1.28 (0.82-1.09) H 10/03/16 17:20 Microbiology 10/03/16 17:32 Urine - Urine - Catheterized Urine Culture - Preliminary Non Lactose Fermenting Gnb Laboratory Tests 10/05/16 11:00 Ur Random Sodium 28 Ur Random Potassium 11.1 Ur Random Chloride 31 Laboratory Tests 10/04/16 10/05/16 10/05/16 06:15 06:00 06:00 MCV 85.8 ABG pH ABG pCO2 at Pt Temp ABG pO2 at Pt Temp ABG HCO3 ABG O2 Sat (Measured) Serum Osmolality 276 L Calcium 9.0 TSH 0.30 L Cortisol AM Sample Pending 10/05/16 07:25 MCV ABG pH 7.35 ABG pCO2 at Pt Temp 84.2 H* ABG pO2 at Pt Temp 73.1 D ABG HCO3 45.0 H* ABG O2 Sat (Measured) 93.8 Serum Osmolality Calcium TSH Cortisol AM Sample Assessment/Plan Impression 1. Hyponatremia R/O SIADH 2. sSchizophrenia 3. Lung mass 4. COPD 5. Anxiety Plan Unrestict the fluids to 1200 cc/day Continue with NaCl tabs for now Rpt labs in am Await Cortisol level however may not be difficult to evaluate since pt is on IV Steroids Obtain Free T4 and T3 since TSH low Dr Longoria
[2016-10-06] MEDS: methylPREDNISolone NA SUCC 40 MG/1 ML VIAL IVPB SCH ×3 (02:10→17:40)
[2016-10-06] MEDS: ALBUTEROL SO4 2.5/IPRATROPIUM 0.5 INH SOL 3 ML VIAL.NEB. NEB SCH ×4 (06:18→23:12)
[2016-10-06] MEDS: SODIUM CHLORIDE 1 GM TABLET PO SCH ×3 (06:38→22:57)
--- NOTE | 2016-10-06 08:41 | PN ---
Progress Note (short form) - Note Progress Note: SUBJECTIVE: Patient seen and examined. Chart reviewed. Comfortable. Offered no complaints today. OBJECTIVE: Vital Signs 10/06/16 10/06/16 02:00 06:00 Temperature 97.8 F 98.6 F Pulse Rate 73 73 Respiratory 16 16 Rate Blood Pressure 134/71 146/73 Intake & Output 10/05/16 10/06/16 10/06/16 23:59 07:59 15:59 Intake Total 990 120 Balance 990 120 Intake: Oral 990 120 Other: Voiding Method Incontinent # Unmeasured Voids Void 2 1 Active Medications Acetaminophen (Tylenol -) 650 mg PO Q6H PRN PRN Reason: BACK PAIN Last Admin: 10/06/16 09:25 Dose: 650 mg Aclidinium [place] (Tudorza -) 1 puff IH BID [facility] Last Admin: 10/06/16 09:33 Dose: Not Given Albuterol Sulfate (Ventolin 0.083% Nebulizer Soln -) 1 amp NEB Q4H PRN PRN Reason: SHORT OF BREATH/WHEEZING Last Admin: 10/05/16 14:53 Dose: 1 amp Albuterol/Ipratropium (Duoneb -) 1 amp NEB QIDR [facility] Last Admin: 10/06/16 06:18 Dose: 1 amp Heparin Sodium (Porcine) (Heparin -) 5,000 unit SQ BID [facility] Last Admin: 10/06/16 09:29 Dose: 5,000 unit Levofloxacin (Levaquin 500 Mg Premixed Ivpb -) 100 mls @ 100 mls/hr IVPB DAILY [facility] Last Admin: 10/06/16 09:26 Dose: 100 mls/hr Lorazepam (Ativan -) 1 mg PO TID PRN PRN Reason: ANXIETY Last Admin: 10/06/16 09:26 Dose: 1 mg Methylprednisolone Sodium Succinate (Solu-Medrol -) 40 mg IVPB Q8H-IV [facility] Last Admin: 10/06/16 09:26 Dose: 40 mg Mirtazapine (Remeron -) 30 mg PO DAILY [facility] Last Admin: 10/06/16 09:25 Dose: 30 mg Nitroglycerin (Nitrostat -) 0.4 mg SL PRN PRN PRN Reason: FOR CHEST PAIN Pantoprazole Sodium (Protonix -) 40 mg PO DAILY [facility] Last Admin: 10/06/16 09:26 Dose: 40 mg Sodium Chloride (Sodium Chloride Tablet -) 1 gm PO TID [facility] Last Admin: 10/06/16 06:38 Dose: 1 gm Verapamil HCl (Calan Sr Capsule -) 120 mg PO DAILY [facility] Last Admin: 10/06/16 09:26 Dose: 120 mg CBC, BMP 10/04/16 06:15 10/06/16 05:35 Laboratory Results - last 24 hr 10/05/16 10/05/16 10/05/16 06:00 06:00 09:00 Sodium Potassium Chloride Carbon Dioxide Anion Gap BUN Creatinine Random Glucose Serum Osmolality 276 L Calcium TSH Cortisol AM Sample 8.4 Urine Osmolality Cancelled 291 L Ur Random Sodium Ur Random Potassium Ur Random Chloride 10/05/16 10/06/16 11:00 05:35 Sodium 132 L Potassium 4.7 Chloride 83 L Carbon Dioxide 42 H Anion Gap 7 L BUN 10 D Creatinine < 0.2 L Random Glucose 88 D Serum Osmolality Calcium 9.0 TSH 0.52 D Cortisol AM Sample Urine Osmolality Ur Random Sodium 28 Ur Random Potassium 11.1 Ur Random Chloride 31 Microbiology 10/03/16 17:32 Blood Culture - Preliminary Blood - Peripheral Venous NO GROWTH OBTAINED AFTER 48 HOURS, INCUBATION TO CONTINUE FOR 3 DAYS. 10/03/16 17:32 Blood Culture - Preliminary Blood - Peripheral Venous NO GROWTH OBTAINED AFTER 48 HOURS, INCUBATION TO CONTINUE FOR 3 DAYS. 10/05/16 11:00 Respiratory Virus Panel - Preliminary Nasopharyngeal Swab 10/05/16 11:00 Influenza Types A,B Antigen (SIXTO) - Final Nasopharyngeal Swab - Final 10/03/16 17:32 Urine Culture - Preliminary Urine - Urine - Catheterized Non Lactose Fermenting Gnb PHYSICAL EXAMINATION: Constitutional: Yes: No Distress Cardiovascular: Yes: Regular Rate and Rhythm Respiratory: Yes: Diminished. Bilateral Rhonchi. Gastrointestinal: Yes: Normal Bowel Sounds, Soft, Abdomen, Obese. No: Distention, Tenderness Edema: No Problem List - Problems (1) Acute on chronic respiratory failure with hypoxia and hypercapnia Code(s): J96.21 - ACUTE AND CHRONIC RESPIRATORY FAILURE WITH HYPOXIA J96.22 - ACUTE AND CHRONIC RESPIRATORY FAILURE WITH HYPERCAPNIA (2) COPD exacerbation Code(s): J44.1 - CHRONIC OBSTRUCTIVE PULMONARY DISEASE W (ACUTE) EXACERBATION (3) Head injury due to trauma Code(s): S09.90XA - UNSPECIFIED INJURY OF HEAD, INITIAL ENCOUNTER Qualifiers: Encounter type: initial encounter Qualified Code(s): S09.90XA - Unspecified injury of head, initial encounter (4) Hyponatremia Code(s): E87.1 - HYPO-OSMOLALITY AND HYPONATREMIA (5) Lung nodule Code(s): R91.1 - SOLITARY PULMONARY NODULE (6) Schizophrenia Code(s): F20.9 - SCHIZOPHRENIA, UNSPECIFIED ASSESSMENT & PLAN: - IV antibiotics. - Nebulizers. - Solumedrol. - CT chest nodule Right upper lobe suspicious-- needs further workup -- will consult with IR - Pulmonary evaluation appreciated-- Will discuss - Will consider inpatient evaluation. - Thoracic Surgery Evaluation. - DVT Prophylaxis. - Renal consult noted and appreciated. - Continue present care. Documentation prepared by Ly Aguilar, acting as a certified medical records coder for Cj Luque MD.
[2016-10-06 09:05] LABS: ANION GAP 7 (8-16); CO2 42 mmol/L (21-32); CREATININE < 0.2 mg/dL (0.55-1.02); GLUCOSE,RANDOM 88 mg/dL (74-106); THYROID STIMULATING HORMONE 0.52 uIU/ml (0.358-3.74)
[2016-10-06] MEDS ORDERED: PT OWN MED DRAWER 7, Y5N ONE ×2 (09:13→22:42)
[2016-10-06] MEDS: ACETAMINOPHEN 325 MG TABLET (FP) PO PRN (09:25)
[2016-10-06] MEDS: MIRTAZAPINE 15 MG TABLET (FP) PO SCH (09:25)
[2016-10-06] MEDS: PANTOPRAZOLE 40 MG TABLET (FP) PO SCH (09:26)
[2016-10-06] MEDS: VERAPAMIL HCL 120 MG CAP SUSTAINED RELEASE PO SCH (09:26)
[2016-10-06] MEDS: LEVOFLOXACIN 500 MG IVPB 100 ML IVPB SCH (09:26)
[2016-10-06] MEDS: LORazepam 1 MG TABLET PO PRN ×2 (09:26→17:40)
[2016-10-06] MEDS: HEPARIN NA (PORCINE) 5,000 UNITS/ML 1ML VIAL SQ SCH ×2 (09:29→22:58)
[2016-10-06] MEDS: ACLIDINIUM BROMIDE 400 MCG/INH AERO.POWD IH SCH ×2 (09:33→22:58)
--- NOTE | 2016-10-06 11:11 | PN ---
Progress Note, Physician History of Present Illness: Renal F/u Fluid restriction is at 1200 cc/day Pt c/o thirst and wanting more water No N/V or diarrhea as per nurses aide Repeat TSH and Free T4 wnl Free T3 pending Calculated serum osm 275 and urine osm 290 - Current Medication List Current Medications: Active Medications Acetaminophen (Tylenol -) 650 mg PO Q6H PRN PRN Reason: BACK PAIN Last Admin: 10/06/16 09:25 Dose: 650 mg Aclidinium [place] (Tudorza -) 1 puff IH BID [facility] Last Admin: 10/06/16 09:33 Dose: Not Given Albuterol Sulfate (Ventolin 0.083% Nebulizer Soln -) 1 amp NEB Q4H PRN PRN Reason: SHORT OF BREATH/WHEEZING Last Admin: 10/05/16 14:53 Dose: 1 amp Albuterol/Ipratropium (Duoneb -) 1 amp NEB QIDR [facility] Last Admin: 10/06/16 06:18 Dose: 1 amp Heparin Sodium (Porcine) (Heparin -) 5,000 unit SQ BID [facility] Last Admin: 10/06/16 09:29 Dose: 5,000 unit Levofloxacin (Levaquin 500 Mg Premixed Ivpb -) 100 mls @ 100 mls/hr IVPB DAILY [facility] Last Admin: 10/06/16 09:26 Dose: 100 mls/hr Lorazepam (Ativan -) 1 mg PO TID PRN PRN Reason: ANXIETY Last Admin: 10/06/16 09:26 Dose: 1 mg Methylprednisolone Sodium Succinate (Solu-Medrol -) 40 mg IVPB Q8H-IV [facility] Last Admin: 10/06/16 09:26 Dose: 40 mg Mirtazapine (Remeron -) 30 mg PO DAILY [facility] Last Admin: 10/06/16 09:25 Dose: 30 mg Nitroglycerin (Nitrostat -) 0.4 mg SL PRN PRN PRN Reason: FOR CHEST PAIN Pantoprazole Sodium (Protonix -) 40 mg PO DAILY [facility] Last Admin: 10/06/16 09:26 Dose: 40 mg Sodium Chloride (Sodium Chloride Tablet -) 1 gm PO TID [facility] Last Admin: 10/06/16 06:38 Dose: 1 gm Verapamil HCl (Calan Sr Capsule -) 120 mg PO DAILY [facility] Last Admin: 10/06/16 09:26 Dose: 120 mg - Objective Vital Signs: Vital Signs Temperature 98.6 F 10/06/16 06:00 Pulse Rate 73 10/06/16 06:00 Respiratory Rate 16 10/06/16 06:00 Blood Pressure 146/73 10/06/16 06:00 O2 Sat by Pulse Oximetry (%) 98 10/05/16 20:43 Constitutional: Yes: No Distress, Other (Lying flat and being changes by the nurses aide) Cardiovascular: Yes: S1, S2 Respiratory: Yes: Other (Decreased rhonchi) Gastrointestinal: Yes: Soft. No: Tenderness, Rebound Edema: No Labs: CBC, BMP 10/04/16 06:15 10/06/16 05:35 INR, PTT INR 1.28 (0.82-1.09) H 10/03/16 17:20 Laboratory Tests 10/05/16 10/06/16 06:00 05:35 TSH 0.52 D Free T4 1.20 Cortisol AM Sample 8.4 Laboratory Tests 10/05/16 10/05/16 09:00 11:00 Urine Osmolality 291 L Ur Random Sodium 28 Assessment/Plan Impression 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 Schizophrenia 3. Lung nodule 4. COPD 5. Anxiety 6. Anemia Plan Continue with restricted fluids at 1200 cc/day and NaCl tabs Work up for malignancy including the lung nodule as per primary care and pulmonary Rpt labs in am Dr Longoria
--- NOTE | 2016-10-06 13:03 | PN ---
Progress Note, Physician History of Present Illness: PULMONARY ALERT,CONGESTED,+COUGH - Current Medication List Current Medications: Active Medications Acetaminophen (Tylenol -) 650 mg PO Q6H PRN PRN Reason: BACK PAIN Last Admin: 10/06/16 09:25 Dose: 650 mg Aclidinium [place] (Tudorza -) 1 puff IH BID [facility] Last Admin: 10/06/16 09:33 Dose: Not Given Albuterol Sulfate (Ventolin 0.083% Nebulizer Soln -) 1 amp NEB Q4H PRN PRN Reason: SHORT OF BREATH/WHEEZING Last Admin: 10/05/16 14:53 Dose: 1 amp Albuterol/Ipratropium (Duoneb -) 1 amp NEB QIDR [facility] Last Admin: 10/06/16 11:16 Dose: 1 amp Heparin Sodium (Porcine) (Heparin -) 5,000 unit SQ BID [facility] Last Admin: 10/06/16 09:29 Dose: 5,000 unit Levofloxacin (Levaquin 500 Mg Premixed Ivpb -) 100 mls @ 100 mls/hr IVPB DAILY [facility] Last Admin: 10/06/16 09:26 Dose: 100 mls/hr Lorazepam (Ativan -) 1 mg PO TID PRN PRN Reason: ANXIETY Last Admin: 10/06/16 09:26 Dose: 1 mg Methylprednisolone Sodium Succinate (Solu-Medrol -) 40 mg IVPB Q8H-IV [facility] Last Admin: 10/06/16 09:26 Dose: 40 mg Mirtazapine (Remeron -) 30 mg PO DAILY [facility] Last Admin: 10/06/16 09:25 Dose: 30 mg Nitroglycerin (Nitrostat -) 0.4 mg SL PRN PRN PRN Reason: FOR CHEST PAIN Pantoprazole Sodium (Protonix -) 40 mg PO DAILY [facility] Last Admin: 10/06/16 09:26 Dose: 40 mg Sodium Chloride (Sodium Chloride Tablet -) 1 gm PO TID [facility] Last Admin: 10/06/16 06:38 Dose: 1 gm Verapamil HCl (Calan Sr Capsule -) 120 mg PO DAILY [facility] Last Admin: 10/06/16 09:26 Dose: 120 mg - Objective Vital Signs: Vital Signs Temperature 99.4 F 10/06/16 09:00 Pulse Rate 78 10/06/16 11:16 Respiratory Rate 22 10/06/16 09:00 Blood Pressure 123/59 10/06/16 09:00 O2 Sat by Pulse Oximetry (%) 98 10/06/16 11:16 Constitutional: Yes: Well Nourished, Calm, Other Eyes: Yes: WNL HENT: Yes: WNL Neck: Yes: WNL Cardiovascular: Yes: Regular Rate and Rhythm, S1, S2 Respiratory: Yes: Rhonchi (JENNIFER RHONCHI [employer] WHEEZES), Wheezes Extremities: Yes: WNL Edema: No Labs: CBC, BMP 10/04/16 06:15 10/06/16 05:35 INR, PTT INR 1.28 (0.82-1.09) H 10/03/16 17:20 Problem List - Problems (1) Acute on chronic respiratory failure with hypoxia and hypercapnia Code(s): J96.21 - ACUTE AND CHRONIC RESPIRATORY FAILURE WITH HYPOXIA J96.22 - ACUTE AND CHRONIC RESPIRATORY FAILURE WITH HYPERCAPNIA (2) COPD exacerbation Code(s): J44.1 - CHRONIC OBSTRUCTIVE PULMONARY DISEASE W (ACUTE) EXACERBATION (3) Hyponatremia Code(s): E87.1 - HYPO-OSMOLALITY AND HYPONATREMIA (4) Schizophrenia Code(s): F20.9 - SCHIZOPHRENIA, UNSPECIFIED Assessment/Plan A/P UTI Acute COPD Exacerbation Acute on Chronic Hypoxic and Hypercapneic Respiratory Failure Lung Nodule Schizophrenia - antibiotics - continue medrol same dose - inhaled bronchodilators - BiPAP as needed to assist in work of breathing - O2 to keep SpO2 >90% - DVT prophylaxis - will need biopsy of lung nodule Problem List - Problems (1) Pneumonia Code(s): J18.9 - PNEUMONIA, UNSPECIFIED ORGANISM Qualifiers: Pneumonia type: due to unspecified organism Laterality: left Lung location: lower lobe of lung Qualified Code(s): J18.1 - Lobar pneumonia, unspecified organism (2) UTI (urinary tract infection) Code(s): N39.0 - URINARY TRACT INFECTION, SITE NOT SPECIFIED Qualifiers: Urinary tract infection type: site unspecified Hematuria presence: without hematuria Qualified Code(s): N39.0 - Urinary tract infection, site not specified (3) COPD exacerbation Code(s): J44.1 - CHRONIC OBSTRUCTIVE PULMONARY DISEASE W (ACUTE) EXACERBATION (4) Lung nodule Code(s): R91.1 - SOLITARY PULMONARY NODULE (5) Hyponatremia Code(s): E87.1 - HYPO-OSMOLALITY AND HYPONATREMIA (6) Schizophrenia Code(s): F20.9 - SCHIZOPHRENIA, UNSPECIFIED (7) Acute on chronic respiratory failure with hypoxia and hypercapnia Code(s): J96.21 - ACUTE AND CHRONIC RESPIRATORY FAILURE WITH HYPOXIA J96.22 - ACUTE AND CHRONIC RESPIRATORY FAILURE WITH HYPERCAPNIA
[2016-10-07] MEDS: methylPREDNISolone NA SUCC 40 MG/1 ML VIAL IVPB SCH ×3 (02:09→17:24)
[2016-10-07] MEDS: LORazepam 1 MG TABLET PO PRN ×3 (02:09→20:24)
[2016-10-07] MEDS: ALBUTEROL SO4 2.5/IPRATROPIUM 0.5 INH SOL 3 ML VIAL.NEB. NEB SCH ×4 (05:46→23:42)
[2016-10-07] MEDS: SODIUM CHLORIDE 1 GM TABLET PO SCH ×2 (06:45→21:12)
[2016-10-07] MEDS ORDERED: PT OWN MED DRAWER 7, Y5N ONE ×2 (07:00→20:20)
[2016-10-07 07:47] LABS: MCHC 32.3 g/dl (32.0-36.0); MEAN CELL VOLUME 86.5 fl (80-96); MEAN PLT VOLUME 6.3 fl (7.5-11.1); PLATELET COUNT 549 K/MM3 (134-434); RDW 14.6 % (11.6-15.6); WHITE BLOOD COUNT 12.4 K/mm3 (4.0-10.0)
[2016-10-07 08:26] LABS: CALCIUM 8.5 mg/dL (8.5-10.1); CREATININE 0.2 mg/dL (0.55-1.02)
[2016-10-07] MEDS: PANTOPRAZOLE 40 MG TABLET (FP) PO SCH (09:56)
[2016-10-07] MEDS: MIRTAZAPINE 15 MG TABLET (FP) PO SCH (09:56)
[2016-10-07] MEDS: ACETAMINOPHEN 325 MG TABLET (FP) PO PRN ×2 (09:57→20:23)
[2016-10-07] MEDS: ACLIDINIUM BROMIDE 400 MCG/INH AERO.POWD IH SCH ×3 (09:57→21:12)
[2016-10-07] MEDS: LEVOFLOXACIN 500 MG IVPB 100 ML IVPB SCH (09:58)
[2016-10-07] MEDS: VERAPAMIL HCL 120 MG CAP SUSTAINED RELEASE PO SCH (09:59)
[2016-10-07] MEDS: HEPARIN NA (PORCINE) 5,000 UNITS/ML 1ML VIAL SQ SCH ×2 (09:59→21:11)
--- NOTE | 2016-10-07 11:41 | PN ---
Progress Note, Physician Chief Complaint: pt apparently drinking whole pitcher of water has less coughing and congestion - Current Medication List Current Medications: Active Medications Acetaminophen (Tylenol -) 650 mg PO Q6H PRN PRN Reason: BACK PAIN Last Admin: 10/07/16 09:57 Dose: 650 mg Aclidinium [place] (Tudorza -) 1 puff IH BID [facility] Last Admin: 10/07/16 10:04 Dose: Not Given Albuterol Sulfate (Ventolin 0.083% Nebulizer Soln -) 1 amp NEB Q4H PRN PRN Reason: SHORT OF BREATH/WHEEZING Last Admin: 10/05/16 14:53 Dose: 1 amp Albuterol/Ipratropium (Duoneb -) 1 amp NEB QIDR [facility] Last Admin: 10/07/16 05:46 Dose: 1 amp Heparin Sodium (Porcine) (Heparin -) 5,000 unit SQ BID [facility] Last Admin: 10/07/16 09:59 Dose: 5,000 unit Levofloxacin (Levaquin 500 Mg Premixed Ivpb -) 100 mls @ 100 mls/hr IVPB DAILY [facility] Last Admin: 10/07/16 09:58 Dose: 100 mls/hr Lorazepam (Ativan -) 1 mg PO TID PRN PRN Reason: ANXIETY Last Admin: 10/07/16 09:57 Dose: 1 mg Methylprednisolone Sodium Succinate (Solu-Medrol -) 40 mg IVPB Q8H-IV [facility] Last Admin: 10/07/16 09:51 Dose: 40 mg Mirtazapine (Remeron -) 30 mg PO DAILY [facility] Last Admin: 10/07/16 09:56 Dose: 30 mg Nitroglycerin (Nitrostat -) 0.4 mg SL PRN PRN PRN Reason: FOR CHEST PAIN Pantoprazole Sodium (Protonix -) 40 mg PO DAILY [facility] Last Admin: 10/07/16 09:56 Dose: 40 mg Sodium Chloride (Sodium Chloride Tablet -) 1 gm PO TID [facility] Last Admin: 10/07/16 06:45 Dose: 1 gm Verapamil HCl (Calan Sr Capsule -) 120 mg PO DAILY [facility] Last Admin: 10/07/16 09:59 Dose: 120 mg - Objective Vital Signs: Vital Signs Temperature 98.5 F 10/07/16 10:00 Pulse Rate 92 H 10/07/16 10:00 Respiratory Rate 20 10/07/16 10:00 Blood Pressure 134/71 10/07/16 10:00 O2 Sat by Pulse Oximetry (%) 96 10/07/16 09:00 Constitutional: Yes: No Distress Cardiovascular: Yes: Regular Rate and Rhythm Respiratory: Yes: Diminished, Rhonchi Gastrointestinal: Yes: Normal Bowel Sounds, Soft, Abdomen, Obese. No: Distention, Tenderness Edema: No Labs: CBC, BMP 10/07/16 06:00 10/07/16 06:00 INR, PTT INR 1.28 (0.82-1.09) H 10/03/16 17:20 Problem List - Problems (1) Acute on chronic respiratory failure with hypoxia and hypercapnia Code(s): J96.21 - ACUTE AND CHRONIC RESPIRATORY FAILURE WITH HYPOXIA J96.22 - ACUTE AND CHRONIC RESPIRATORY FAILURE WITH HYPERCAPNIA (2) COPD exacerbation Code(s): J44.1 - CHRONIC OBSTRUCTIVE PULMONARY DISEASE W (ACUTE) EXACERBATION (3) Head injury due to trauma Code(s): S09.90XA - UNSPECIFIED INJURY OF HEAD, INITIAL ENCOUNTER Qualifiers: Encounter type: initial encounter Qualified Code(s): S09.90XA - Unspecified injury of head, initial encounter (4) Hyponatremia Code(s): E87.1 - HYPO-OSMOLALITY AND HYPONATREMIA (5) Lung nodule Code(s): R91.1 - SOLITARY PULMONARY NODULE (6) Schizophrenia Code(s): F20.9 - SCHIZOPHRENIA, UNSPECIFIED Assessment/Plan PLAN IV antibiotics Nebs, BIPAP Solumedrol Sodium improving Spoke with IR yesterday - Dr Nesbitt- stated that doing biopsy now may result in air leak as pt has emphysema. Would complete antibiotics and repeat CT chest in 4 weeks and then consider biopsy afterwards depending on CT chest DVT prophylaxis -- Heparin sc
--- NOTE | 2016-10-07 13:50 | PN ---
Progress Note, Physician History of Present Illness: Renal F/u Pt lying flat in bed in no distress Serum Na better - Current Medication List Current Medications: Active Medications Acetaminophen (Tylenol -) 650 mg PO Q6H PRN PRN Reason: BACK PAIN Last Admin: 10/07/16 09:57 Dose: 650 mg Aclidinium [place] (Tudorza -) 1 puff IH BID [facility] Last Admin: 10/07/16 10:04 Dose: Not Given Albuterol Sulfate (Ventolin 0.083% Nebulizer Soln -) 1 amp NEB Q4H PRN PRN Reason: SHORT OF BREATH/WHEEZING Last Admin: 10/05/16 14:53 Dose: 1 amp Albuterol/Ipratropium (Duoneb -) 1 amp NEB QIDR [facility] Last Admin: 10/07/16 05:46 Dose: 1 amp Heparin Sodium (Porcine) (Heparin -) 5,000 unit SQ BID [facility] Last Admin: 10/07/16 09:59 Dose: 5,000 unit Levofloxacin (Levaquin 500 Mg Premixed Ivpb -) 100 mls @ 100 mls/hr IVPB DAILY [facility] Last Admin: 10/07/16 09:58 Dose: 100 mls/hr Lorazepam (Ativan -) 1 mg PO TID PRN PRN Reason: ANXIETY Last Admin: 10/07/16 09:57 Dose: 1 mg Methylprednisolone Sodium Succinate (Solu-Medrol -) 40 mg IVPB Q8H-IV [facility] Last Admin: 10/07/16 09:51 Dose: 40 mg Mirtazapine (Remeron -) 30 mg PO DAILY [facility] Last Admin: 10/07/16 09:56 Dose: 30 mg Nitroglycerin (Nitrostat -) 0.4 mg SL PRN PRN PRN Reason: FOR CHEST PAIN Pantoprazole Sodium (Protonix -) 40 mg PO DAILY [facility] Last Admin: 10/07/16 09:56 Dose: 40 mg Sodium Chloride (Sodium Chloride Tablet -) 1 gm PO TID [facility] Last Admin: 10/07/16 06:45 Dose: 1 gm Verapamil HCl (Calan Sr Capsule -) 120 mg PO DAILY [facility] Last Admin: 10/07/16 09:59 Dose: 120 mg - Objective Vital Signs: Vital Signs Temperature 98.5 F 10/07/16 10:00 Pulse Rate 92 H 10/07/16 10:00 Respiratory Rate 20 03/18/17 10:00 Blood Pressure 134/71 10/07/16 10:00 O2 Sat by Pulse Oximetry (%) 96 10/07/16 09:00 Labs: CBC, BMP 10/07/16 06:00 10/07/16 06:00 INR, PTT INR 1.28 (0.82-1.09) H 10/03/16 17:20 Assessment/Plan Impression 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 Schizophrenia 3. Lung nodule 4. COPD with chronic Hypoxic and Hypercapneic Respiratory insufficiency 5. Anxiety 6. Anemia Plan Liberalize fluids to 1500cc/day and decrease NaCl tabs to BID Work up for malignancy including the lung nodule as per pulmonary Rpt BMP in am Dr Longoria
[2016-10-07 13:51] LABS: ANISOCYTOSIS 1+; HYPOCHROMIA 2+; METAMYELOCYTE 3 % (0-2); PLATELET COMMENT2 NO CLOTTING DETECTED; PLATELET ESTIMATE INCREASED (NORMAL); POIKILOCYTOSIS 2+; POLYCHROMASIA 1+
[2016-10-07 13:52] LABS: TOXIC GRANULATION 1+
--- NOTE | 2016-10-07 15:11 | PN ---
Progress Note (short form) - Note Progress Note: PULMONARY States breathing is about the same but appears more comfortable. Last Vital Signs Temp Pulse Resp BP Pulse Ox 98.9 F 83 20 139/63 96 10/07/16 14:44 10/07/16 14:44 10/07/16 14:44 10/07/16 14:44 10/07/16 09:00 Gen: less tachypneic Heart: RRR Lung: scattered rhonchi Abd: soft, nontender Ext: no edema CBC, BMP 10/07/16 06:00 10/07/16 06:00 Active Medications Acetaminophen (Tylenol -) 650 mg PO Q6H PRN PRN Reason: BACK PAIN Last Admin: 10/07/16 09:57 Dose: 650 mg Aclidinium [place] (Tudorza -) 1 puff IH BID [facility] Last Admin: 10/07/16 10:04 Dose: Not Given Albuterol Sulfate (Ventolin 0.083% Nebulizer Soln -) 1 amp NEB Q4H PRN PRN Reason: SHORT OF BREATH/WHEEZING Last Admin: 10/05/16 14:53 Dose: 1 amp Albuterol/Ipratropium (Duoneb -) 1 amp NEB QIDR [facility] Last Admin: 10/07/16 11:42 Dose: 1 amp Heparin Sodium (Porcine) (Heparin -) 5,000 unit SQ BID [facility] Last Admin: 10/07/16 09:59 Dose: 5,000 unit Levofloxacin (Levaquin 500 Mg Premixed Ivpb -) 100 mls @ 100 mls/hr IVPB DAILY [facility] Last Admin: 10/07/16 09:58 Dose: 100 mls/hr Lorazepam (Ativan -) 1 mg PO TID PRN PRN Reason: ANXIETY Last Admin: 10/07/16 09:57 Dose: 1 mg Methylprednisolone Sodium Succinate (Solu-Medrol -) 40 mg IVPB Q8H-IV [facility] Last Admin: 10/07/16 09:51 Dose: 40 mg Mirtazapine (Remeron -) 30 mg PO DAILY [facility] Last Admin: 10/07/16 09:56 Dose: 30 mg Nitroglycerin (Nitrostat -) 0.4 mg SL PRN PRN PRN Reason: FOR CHEST PAIN Pantoprazole Sodium (Protonix -) 40 mg PO DAILY [facility] Last Admin: 10/07/16 09:56 Dose: 40 mg Sodium Chloride (Sodium Chloride Tablet -) 1 gm PO BID [facility] Verapamil HCl (Calan Sr Capsule -) 120 mg PO DAILY [facility] Last Admin: 10/07/16 09:59 Dose: 120 mg A/P UTI Acute COPD Exacerbation Acute on Chronic Hypoxic and Hypercapneic Respiratory Failure Lung Nodule Schizophrenia - continue antibiotics - continue medrol - inhaled bronchodilators - BiPAP as needed to assist in work of breathing - O2 to keep SpO2 >90% - DVT prophylaxis - will need biopsy of lung nodule at some point which can be done as outpt Problem List - Problems (1) Pneumonia Code(s): J18.9 - PNEUMONIA, UNSPECIFIED ORGANISM Qualifiers: Pneumonia type: due to unspecified organism Laterality: left Lung location: lower lobe of lung Qualified Code(s): J18.1 - Lobar pneumonia, unspecified organism (2) UTI (urinary tract infection) Code(s): N39.0 - URINARY TRACT INFECTION, SITE NOT SPECIFIED Qualifiers: Urinary tract infection type: site unspecified Hematuria presence: without hematuria Qualified Code(s): N39.0 - Urinary tract infection, site not specified (3) COPD exacerbation Code(s): J44.1 - CHRONIC OBSTRUCTIVE PULMONARY DISEASE W (ACUTE) EXACERBATION (4) Lung nodule Code(s): R91.1 - SOLITARY PULMONARY NODULE (5) Hyponatremia Code(s): E87.1 - HYPO-OSMOLALITY AND HYPONATREMIA (6) Schizophrenia Code(s): F20.9 - SCHIZOPHRENIA, UNSPECIFIED (7) Acute on chronic respiratory failure with hypoxia and hypercapnia Code(s): J96.21 - ACUTE AND CHRONIC RESPIRATORY FAILURE WITH HYPOXIA J96.22 - ACUTE AND CHRONIC RESPIRATORY FAILURE WITH HYPERCAPNIA
[2016-10-08] MEDS: methylPREDNISolone NA SUCC 40 MG/1 ML VIAL IVPB SCH ×3 (01:23→21:26)
[2016-10-08] MEDS: ALBUTEROL SO4 2.5/IPRATROPIUM 0.5 INH SOL 3 ML VIAL.NEB. NEB SCH ×3 (06:15→17:59)
[2016-10-08 07:52] LABS: CALCIUM 8.8 mg/dL (8.5-10.1); CREATININE 0.2 mg/dL (0.55-1.02)
[2016-10-08] MEDS ORDERED: PT OWN MED DRAWER 7, Y5N ONE ×2 (08:42→21:21)
[2016-10-08] MEDS: LORazepam 1 MG TABLET PO PRN ×2 (08:55→21:26)
--- NOTE | 2016-10-08 08:59 | PN ---
Progress Note, Physician Chief Complaint: no distress no SOB or coughing does not comply with BIPAP - Current Medication List Current Medications: Active Medications Acetaminophen (Tylenol -) 650 mg PO Q6H PRN PRN Reason: BACK PAIN Last Admin: 10/07/16 20:23 Dose: 650 mg Aclidinium [place] (Tudorza -) 1 puff IH BID [facility] Last Admin: 10/07/16 21:12 Dose: Not Given Albuterol Sulfate (Ventolin 0.083% Nebulizer Soln -) 1 amp NEB Q4H PRN PRN Reason: SHORT OF BREATH/WHEEZING Last Admin: 10/05/16 14:53 Dose: 1 amp Albuterol/Ipratropium (Duoneb -) 1 amp NEB QIDR [facility] Last Admin: 10/08/16 06:15 Dose: 1 amp Heparin Sodium (Porcine) (Heparin -) 5,000 unit SQ BID [facility] Last Admin: 10/07/16 21:11 Dose: 5,000 unit Levofloxacin (Levaquin 500 Mg Premixed Ivpb -) 100 mls @ 100 mls/hr IVPB DAILY [facility] Last Admin: 10/07/16 09:58 Dose: 100 mls/hr Lorazepam (Ativan -) 1 mg PO TID PRN PRN Reason: ANXIETY Last Admin: 10/07/16 20:24 Dose: 1 mg Methylprednisolone Sodium Succinate (Solu-Medrol -) 40 mg IVPB Q8H-IV [facility] Last Admin: 10/08/16 01:23 Dose: 40 mg Mirtazapine (Remeron -) 30 mg PO DAILY [facility] Last Admin: 10/07/16 09:56 Dose: 30 mg Nitroglycerin (Nitrostat -) 0.4 mg SL PRN PRN PRN Reason: FOR CHEST PAIN Pantoprazole Sodium (Protonix -) 40 mg PO DAILY [facility] Last Admin: 10/07/16 09:56 Dose: 40 mg Sodium Chloride (Sodium Chloride Tablet -) 1 gm PO BID [facility] Last Admin: 10/07/16 21:12 Dose: 1 gm Verapamil HCl (Calan Sr Capsule -) 120 mg PO DAILY [facility] Last Admin: 10/07/16 09:59 Dose: 120 mg - Objective Vital Signs: Vital Signs Temperature 98.5 F 10/08/16 06:38 Pulse Rate 77 10/08/16 06:38 Respiratory Rate 18 10/08/16 06:38 Blood Pressure 122/62 10/08/16 06:38 O2 Sat by Pulse Oximetry (%) 98 10/07/16 21:00 Constitutional: Yes: No Distress Cardiovascular: Yes: Regular Rate and Rhythm Respiratory: Yes: Diminished Gastrointestinal: Yes: Normal Bowel Sounds, Soft. No: Distention, Tenderness Edema: No Labs: CBC, BMP 10/07/16 06:00 10/08/16 06:15 INR, PTT INR 1.28 (0.82-1.09) H 10/03/16 17:20 Problem List - Problems (1) Acute on chronic respiratory failure with hypoxia and hypercapnia Code(s): J96.21 - ACUTE AND CHRONIC RESPIRATORY FAILURE WITH HYPOXIA J96.22 - ACUTE AND CHRONIC RESPIRATORY FAILURE WITH HYPERCAPNIA (2) COPD exacerbation Code(s): J44.1 - CHRONIC OBSTRUCTIVE PULMONARY DISEASE W (ACUTE) EXACERBATION (3) Head injury due to trauma Code(s): S09.90XA - UNSPECIFIED INJURY OF HEAD, INITIAL ENCOUNTER Qualifiers: Encounter type: initial encounter Qualified Code(s): S09.90XA - Unspecified injury of head, initial encounter (4) Hyponatremia Code(s): E87.1 - HYPO-OSMOLALITY AND HYPONATREMIA (5) Lung nodule Code(s): R91.1 - SOLITARY PULMONARY NODULE (6) Schizophrenia Code(s): F20.9 - SCHIZOPHRENIA, UNSPECIFIED Assessment/Plan PLAN IV antibiotics Nebs, BIPAP Solumedrol taper As per IR- Dr Nesbitt- stated that doing biopsy now may result in air leak as pt has emphysema. Would complete antibiotics and repeat CT chest in 4 weeks and then consider biopsy afterwards depending on CT chest possible dc in AM - can change Solumedrol to PO prednisone in AM DVT prophylaxis -- Heparin sc
[2016-10-08] MEDS: HEPARIN NA (PORCINE) 5,000 UNITS/ML 1ML VIAL SQ SCH ×2 (09:00→21:33)
[2016-10-08] MEDS: MIRTAZAPINE 15 MG TABLET (FP) PO SCH (09:00)
[2016-10-08] MEDS: SODIUM CHLORIDE 1 GM TABLET PO SCH ×2 (09:00→21:34)
[2016-10-08] MEDS: LEVOFLOXACIN 500 MG IVPB 100 ML IVPB SCH (09:00)
[2016-10-08] MEDS: PANTOPRAZOLE 40 MG TABLET (FP) PO SCH (09:01)
[2016-10-08] MEDS: VERAPAMIL HCL 120 MG CAP SUSTAINED RELEASE PO SCH (09:01)
[2016-10-08] MEDS: ACLIDINIUM BROMIDE 400 MCG/INH AERO.POWD IH SCH ×2 (09:02→21:33)
--- NOTE | 2016-10-08 12:57 | PN ---
Progress Note, Physician History of Present Illness: Renal F/u Pt is alert and cooperative No C/O N/V or diarrhea - Current Medication List Current Medications: Active Medications Acetaminophen (Tylenol -) 650 mg PO Q6H PRN PRN Reason: BACK PAIN Last Admin: 10/07/16 20:23 Dose: 650 mg Aclidinium [place] (Tudorza -) 1 puff IH BID [facility] Last Admin: 10/08/16 09:02 Dose: Not Given Albuterol Sulfate (Ventolin 0.083% Nebulizer Soln -) 1 amp NEB Q4H PRN PRN Reason: SHORT OF BREATH/WHEEZING Last Admin: 10/05/16 14:53 Dose: 1 amp Albuterol/Ipratropium (Duoneb -) 1 amp NEB QIDR [facility] Last Admin: 10/08/16 12:18 Dose: 1 amp Heparin Sodium (Porcine) (Heparin -) 5,000 unit SQ BID [facility] Last Admin: 10/08/16 09:00 Dose: 5,000 unit Levofloxacin (Levaquin 500 Mg Premixed Ivpb -) 100 mls @ 100 mls/hr IVPB DAILY [facility] Last Admin: 10/08/16 09:00 Dose: 100 mls/hr Lorazepam (Ativan -) 1 mg PO TID PRN PRN Reason: ANXIETY Last Admin: 10/08/16 08:55 Dose: 1 mg Methylprednisolone Sodium Succinate (Solu-Medrol -) 40 mg IVPB BID [facility] Mirtazapine (Remeron -) 30 mg PO DAILY [facility] Last Admin: 10/08/16 09:00 Dose: 30 mg Nitroglycerin (Nitrostat -) 0.4 mg SL PRN PRN PRN Reason: FOR CHEST PAIN Pantoprazole Sodium (Protonix -) 40 mg PO DAILY [facility] Last Admin: 10/08/16 09:01 Dose: 40 mg Sodium Chloride (Sodium Chloride Tablet -) 1 gm PO BID [facility] Last Admin: 10/08/16 09:00 Dose: 1 gm Verapamil HCl (Calan Sr Capsule -) 120 mg PO DAILY [facility] Last Admin: 10/08/16 09:01 Dose: 120 mg - Objective Vital Signs: Vital Signs Temperature 98.5 F 10/08/16 10:00 Pulse Rate 74 10/08/16 10:00 Respiratory Rate 18 10/08/16 10:00 Blood Pressure 128/62 10/08/16 10:00 O2 Sat by Pulse Oximetry (%) 98 10/08/16 09:00 Constitutional: Yes: No Distress Cardiovascular: Yes: S1, S2 Respiratory: Yes: Rhonchi Gastrointestinal: Yes: Soft. 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 Schizophrenia 3. Lung nodule 4. COPD with chronic Hypoxic and Hypercapneic Respiratory insufficiency 5. Anxiety 6. Anemia Plan May need to reduce the daily fluid from 1500cc/dayif serum sodium decreases further Work up for malignancy including the lung nodule as per pulmonary Rpt BMP in am Dr Longoria
--- NOTE | 2016-10-08 13:27 | PN ---
Progress Note (short form) - Note Progress Note: PULMONARY Breathing continues to improve. Minimal cough and wheezing. Last Vital Signs Temp Pulse Resp BP Pulse Ox 98.5 F 74 18 128/62 98 10/08/16 10:00 10/08/16 10:00 10/08/16 10:00 10/08/16 10:00 10/08/16 09:00 Gen: less tachypneic Heart: RRR Lung: bibasilar rales Abd: soft, nontender Ext: no edema CBC, BMP 10/07/16 06:00 10/08/16 06:15 Active Medications Acetaminophen (Tylenol -) 650 mg PO Q6H PRN PRN Reason: BACK PAIN Last Admin: 10/07/16 20:23 Dose: 650 mg Aclidinium Com[place] (Tudorza -) 1 puff IH BID [facility] Last Admin: 10/08/16 09:02 Dose: Not Given Albuterol Sulfate (Ventolin 0.083% Nebulizer Soln -) 1 amp NEB Q4H PRN PRN Reason: SHORT OF BREATH/WHEEZING Last Admin: 10/05/16 14:53 Dose: 1 amp Albuterol/Ipratropium (Duoneb -) 1 amp NEB QIDR [facility] Last Admin: 10/08/16 12:18 Dose: 1 amp Heparin Sodium (Porcine) (Heparin -) 5,000 unit SQ BID [facility] Last Admin: 10/08/16 09:00 Dose: 5,000 unit Levofloxacin (Levaquin 500 Mg Premixed Ivpb -) 100 mls @ 100 mls/hr IVPB DAILY [facility] Last Admin: 10/08/16 09:00 Dose: 100 mls/hr Lorazepam (Ativan -) 1 mg PO TID PRN PRN Reason: ANXIETY Last Admin: 10/08/16 08:55 Dose: 1 mg Methylprednisolone Sodium Succinate (Solu-Medrol -) 40 mg IVPB BID [facility] Mirtazapine (Remeron -) 30 mg PO DAILY [facility] Last Admin: 10/08/16 09:00 Dose: 30 mg Nitroglycerin (Nitrostat -) 0.4 mg SL PRN PRN PRN Reason: FOR CHEST PAIN Pantoprazole Sodium (Protonix -) 40 mg PO DAILY [facility] Last Admin: 10/08/16 09:01 Dose: 40 mg Sodium Chloride (Sodium Chloride Tablet -) 1 gm PO BID [facility] Last Admin: 10/08/16 09:00 Dose: 1 gm Verapamil HCl (Calan Sr Capsule -) 120 mg PO DAILY [facility] Last Admin: 10/08/16 09:01 Dose: 120 mg A/P UTI Acute COPD Exacerbation Acute on Chronic Hypoxic and Hypercapneic Respiratory Failure Lung Nodule Schizophrenia - continue antibiotics - can change steroids to PO in AM - inhaled bronchodilators - BiPAP as needed to assist in work of breathing - O2 to keep SpO2 >90% - DVT prophylaxis - will need biopsy of lung nodule at some point which can be done as outpt Problem List - Problems (1) Pneumonia Code(s): J18.9 - PNEUMONIA, UNSPECIFIED ORGANISM Qualifiers: Pneumonia type: due to unspecified organism Laterality: left Lung location: lower lobe of lung Qualified Code(s): J18.1 - Lobar pneumonia, unspecified organism (2) UTI (urinary tract infection) Code(s): N39.0 - URINARY TRACT INFECTION, SITE NOT SPECIFIED Qualifiers: Urinary tract infection type: site unspecified Hematuria presence: without hematuria Qualified Code(s): N39.0 - Urinary tract infection, site not specified (3) COPD exacerbation Code(s): J44.1 - CHRONIC OBSTRUCTIVE PULMONARY DISEASE W (ACUTE) EXACERBATION (4) Lung nodule Code(s): R91.1 - SOLITARY PULMONARY NODULE (5) Hyponatremia Code(s): E87.1 - HYPO-OSMOLALITY AND HYPONATREMIA (6) Schizophrenia Code(s): F20.9 - SCHIZOPHRENIA, UNSPECIFIED (7) Acute on chronic respiratory failure with hypoxia and hypercapnia Code(s): J96.21 - ACUTE AND CHRONIC RESPIRATORY FAILURE WITH HYPOXIA J96.22 - ACUTE AND CHRONIC RESPIRATORY FAILURE WITH HYPERCAPNIA
[2016-10-08] MEDS: ACETAMINOPHEN 325 MG TABLET (FP) PO PRN ×2 (16:29→21:39)
[2016-10-09] MEDS: ALBUTEROL SO4 2.5/IPRATROPIUM 0.5 INH SOL 3 ML VIAL.NEB. NEB SCH ×3 (06:00→11:05)
[2016-10-09 07:27] LABS: CALCIUM 8.7 mg/dL (8.5-10.1); CREATININE 0.2 mg/dL (0.55-1.02)
[2016-10-09] MEDS ORDERED: PT OWN MED DRAWER 7, Y5N ONE ×2 (09:03→10:32)
--- NOTE | 2016-10-09 09:04 | DS ---
Physical Examination Vital Signs: Vital Signs Temperature 97.6 F 10/09/16 05:40 Pulse Rate 75 10/09/16 05:40 Respiratory Rate 20 10/09/16 05:40 Blood Pressure 131/72 10/09/16 05:40 O2 Sat by Pulse Oximetry (%) 94 L 10/08/16 21:00 Findings/Remarks: see today progress note Labs: CBC, BMP 10/07/16 06:00 10/09/16 05:35 Discharge Summary Reason For Visit: UTI;TRAUMATIC INJURY OF HEAD HYPONATREMIA;COPD;PNA Current Active Problems Acute on chronic respiratory failure with hypoxia and hypercapnia (Acute) COPD exacerbation (Acute) Head injury due to trauma (Acute) Hyponatremia (Acute) Lung nodule (Acute) Pneumonia (Acute) Schizophrenia (Acute) UTI (urinary tract infection) (Acute) Hospital Course: The patient is a 71 year old female with history of COPD, schizophrenia, anxiety /depression, sent from [facility] s/p fall with head injury. ct head was ok pt admitted as she was also found in copd exac / uti as well as hyponatremic work up-- CT CHEST showed she has lung mass. echo - essentially ok got better with steroids/ abx Pulmonary followed IR was also consulted for lung biopsy - Dr. Hester - who suggested that biopsy will not be useful at present due to copd exac-- suggested to be done in about 4 weeks when acute phase resolves nephrology also consulted -- sodium got better with water restriction and also with sodium tabs She has possibly has SIADH Pt also found to have low T3 LEVEL -- TSH AND T4 ARE OK Pt now stable for d/c to [facility] Recommendations Taper steroids as directed Schedule appointment with ( IR) at [facility] in about 4 weeks to Schedule appointment Pulmonary to follow Started on Low dose on synthroid - Monitor T3/ tsh level Water restriction to 1500 ml/ day Monitor electrolytes Abx for few more days - 5 discussed with nursing staff. discharge time 40 min in examining / documenting and coordating care Condition: Stable - Instructions Referrals: Eitan Jones [Primary Care Provider] - Disposition: [facility] - Home Medications Comprehensive Discharge Medication List: Ambulatory Orders Mirtazapine [Remeron -] 30 mg PO DAILY 10/03/16 Nitroglycerin [Nitrostat] 0.4 mg SL PRN PRN 10/03/16 Pantoprazole Sodium 40 mg PO DAILY 10/03/16 Sodium Chloride 1,000 gm PO TID 10/03/16 Tiotropium [place] [Spiriva] 18 mcg IH DAILY 10/03/16 Verapamil HCl [Verapamil ER] 120 mg PO DAILY 10/03/16 Acetaminophen [Tylenol .Regular Strength -] 650 mg PO Q6H PRN #0 tablet Aclidinium [place] [Tudorza -] 1 puff IH BID inhaler 10/09/16 Albuterol 0.083% Nebulizer Audra [Ventolin 0.083% Nebulizer Soln -] 1 amp NEB Q4H PRN #0 amp 10/09/16 Heparin - 5,000 unit SQ BID vial 10/09/16 Levothyroxine [Synthroid -] 25 mcg PO DAILY #30 tablet 10/09/16 Lorazepam [Ativan] 1 mg PO TID PRN #0 tablet MDD 3 10/09/16 Prednisone [Deltasone -] 10 mg PO DAILY #30 tablet 10/09/16
[2016-10-09] MEDS: VERAPAMIL HCL 120 MG CAP SUSTAINED RELEASE PO SCH (09:13)
[2016-10-09] MEDS: PANTOPRAZOLE 40 MG TABLET (FP) PO SCH (09:14)
[2016-10-09] MEDS: MIRTAZAPINE 15 MG TABLET (FP) PO SCH (09:14)
[2016-10-09] MEDS: SODIUM CHLORIDE 1 GM TABLET PO SCH (09:15)
[2016-10-09] MEDS: ACLIDINIUM BROMIDE 400 MCG/INH AERO.POWD IH SCH (09:16)
[2016-10-09] MEDS: LEVOFLOXACIN 500 MG IVPB 100 ML IVPB SCH (09:17)
[2016-10-09] MEDS: HEPARIN NA (PORCINE) 5,000 UNITS/ML 1ML VIAL SQ SCH (09:31)
[2016-10-09] MEDS: methylPREDNISolone NA SUCC 40 MG/1 ML VIAL IVPB SCH (09:33)
--- NOTE | 2016-10-09 09:35 | PN ---
Progress Note (short form) - Note Progress Note: Subjective Patient seen and examined. Chart reviewed. Comfortable. No complaints. Eating breakfast. Objective Last Vital Signs Temp Pulse Resp BP Pulse Ox 97.6 F 75 20 131/72 94 L 10/09/16 05:40 10/09/16 05:40 10/09/16 05:40 10/09/16 05:40 10/08/16 21:00 Laboratory Results - last 24 hr 10/09/16 05:35 Sodium 134 L Potassium 4.6 Chloride 84 L Carbon Dioxide 42 H Anion Gap 8 BUN 11 Creatinine 0.2 L Random Glucose 99 Calcium 8.7 CBC, BMP 10/07/16 06:00 10/09/16 05:35 Physical Exam Alert and Awake Lungs: Scattered rhoncii CVS: Heart sounds regular. Abdomen: Soft Edema: No Assessment and Plan Clinically better. Medically stable for d/c See detailed discharge summary note. Discussed with nursing staff and case maker. Documentation prepared by Nerissa Dawn, acting as a ophthalmic medical technician for Cj Luque MD.
[2016-10-09 10:50] VITALS: BP 151/71; PULSE 92; TEMP 98.2
== END 2016-10-09 12:13 | DRG 190 ==
LOC: JER 16:46 → JERBED 19:29 → J4S 21:39
PROVIDERS: ADMIT Internal Medicine; ATTEND Internal Medicine
PROC: 5A09557 Assistance with Respiratory Ventilation, Greater than 96 Consecutive Hours, Continuous Positive Airway Pressure (ICD-10-PCS; principal; 2016-10-03)
DX: J44.1 Chronic obstructive pulmonary disease with (acute) exacerbation (principal); J96.21 Acute and chronic respiratory failure with hypoxia; J96.22 Acute and chronic respiratory failure with hypercapnia; J18.9 Pneumonia, unspecified organism; E87.1 Hypo-osmolality and hyponatremia; N39.0 Urinary tract infection, site not specified; S09.90XA Unspecified injury of head, initial encounter; W19.XXXA Unspecified fall, initial encounter; Y93.9 Activity, unspecified; Y92.89 Other specified places as the place of occurrence of the external cause; Y99.9 Unspecified external cause status; R91.1 Solitary pulmonary nodule; F20.9 Schizophrenia, unspecified; F32.9 Major depressive disorder, single episode, unspecified; F41.9 Anxiety disorder, unspecified; D64.9 Anemia, unspecified; Z87.891 Personal history of nicotine dependence
CPT/HCPCS: 36415; 36600; 70450-TC; 71010-TC; 71250-TC; 80048; 80053; 81003; 81015; 82436; 82533; 82550; 82803; 83605; 83880; 83930; 83935; 84133; 84300; 84439; 84443; 84481; 84484; 85025; 85610; 87040; 87086; 87186; 87254; 87804; 93005; 93010; 93306-TC; 94640; 94660; 99285-25; J1644

== ENCOUNTER 2017-01-18 20:21 | Inpatient (IN) | payer OTHER, BC ==
[2017-01-18] MEDS ORDERED: RAPID SEQUENCE INTUBATION KIT NR ONE (20:28)
[2017-01-18] MEDS ORDERED: SODIUM CHLORIDE 0.9% 1000 ML INFUS.BAG IV PRN (20:38)
[2017-01-18] MEDS ORDERED: VANCOMYCIN 1 GRAM (PRE-DOCKED) 250 ML IVPB ONE (20:59)
[2017-01-18] MEDS ORDERED: LORAZEPAM CARPU-JECT 2 MG/ML DISP.SYRIN ONE ×2 (20:59→21:05)
[2017-01-18] MEDS ORDERED: PIPERACILLIN/TAZOB 3.375 GM 50 ML IVPB ONE (21:00)
[2017-01-18] MEDS ORDERED: SUCCINYLCHOLINE CHLORIDE 200 MG/10 ML VIAL IVPUSH ONE (21:04)
[2017-01-18] MEDS ORDERED: LORazepam 2 MG/ML SDV VIAL ONE (21:04)
[2017-01-18] MEDS ORDERED: ETOMIDATE 20 MG/10 ML AMPUL IVPUSH ONE (21:04)
[2017-01-18] MEDS ORDERED: LORAZEPAM CARPU-JECT 2 MG/ML DISP.SYRIN IVPUSH ONE (21:05)
[2017-01-18] MEDS ORDERED: VANCOMYCIN 1,000 MG in DEXTROSE 5%-WATER - 250 ML IVPB ONE (21:05)
[2017-01-18] MEDS ORDERED: PIPERACILLIN/TAZOB 3.375 GM/50 ML PRE-DOCKED IV ONE (21:05)
[2017-01-18 21:29] LABS: MCH 28.9 pg (25.7-33.7); MCHC 30.6 g/dl (32.0-36.0); MEAN CELL VOLUME 94.2 fl (80-96); MEAN PLT VOLUME 6.9 fl (7.5-11.1); PLATELET COUNT 414 K/MM3 (134-434); RDW 16.3 % (11.6-15.6); WHITE BLOOD COUNT 20.4 K/mm3 (4.0-10.0)
[2017-01-18 21:32] LABS: ARTERIAL BLD GAS O2 SATURATION 98.6 % (90-98.9); ARTERIAL BLOOD GAS BASE EXCESS 17.2 meq/l (-2-2); ARTERIAL BLOOD GAS HCO3 46.4 meq/L (22-26)
[2017-01-18 21:33] LABS: ALLENS TEST POSITIVE; ART PUNCT SITE RIGHT RADIAL; LPM/O2% 100%; MECH. VENT. YES; METHEMOGLOBIN 0.3 % (0.4-1.5); PT. ON O2? YES; TYPE OF O2 VENT; VENT RATE 14; VT/PRESS 400
[2017-01-18 21:34] LABS: ARTERIAL BLOOD GAS pH 7.28 (7.35-7.45)
[2017-01-18 21:44] LABS: URINE APPEARANCE CLEAR; URINE BILIRUBIN NEGATIVE (NEGATIVE); URINE BLOOD NEGATIVE (NEGATIVE); URINE COLOR YELLOW; URINE GLUCOSE (UA) NEGATIVE (NEGATIVE); URINE KETONE NEGATIVE (NEGATIVE); URINE LEUK ESTERASE NEGATIVE (NEGATIVE); URINE NITRITE NEGATIVE (NEGATIVE); URINE UROBILINOGEN NEGATIVE E.U./dl (0.2-1.0)
[2017-01-18 21:47] LABS: URINE PROTEIN 1+ (NEGATIVE)
[2017-01-18 21:48] LABS: URINE HYALINE CAST 14 /lpf; URINE MUCUS FEW; URINE RBC 6 /hpf (0-3); URINE WBC 7 /hpf (3-5)
[2017-01-18 21:54] LABS: INR 1.1 (0.82-1.09); PROTHROMBIN TIME (PATIENT) 12.1 SEC (9.98-11.88)
[2017-01-18 21:56] LABS: ACTIVATED PTT 29.6 SECONDS (26.9-34.4)
[2017-01-18 22:17] LABS: ALBUMIN 1.5 g/dl (3.4-5.0); BILIRUBIN,TOTAL 0.1 mg/dL (0.2-1.0); CREATININE < 0.2 mg/dL (0.55-1.02); GLUCOSE,RANDOM 163 mg/dL (74-106); SGOT/AST 9 U/L (15-37); SGPT/ALT 9 U/L (12-78); TOT PROT 5.2 g/dl (6.4-8.2)
[2017-01-18 22:19] LABS: ALK PHOS 112 U/L (45-117); TROPONIN I < 0.02 ng/ml (0.00-0.05)
[2017-01-18 22:29] LABS: PLATELET ESTIMATE ADEQUATE (NORMAL)
[2017-01-18 22:42] LABS: ANION GAP 2 (8-16)
[2017-01-18 22:43] LABS: CO2 50 mmol/L (21-32)
[2017-01-18 22:55] LABS: VENOUS PH 7.21 (7.32-7.42)
[2017-01-18] MEDS ORDERED: SODIUM CHLORIDE 500 ML IV STA (23:00)
[2017-01-18 23:19] LABS: ARTERIAL BLD GAS O2 SATURATION 98.5 % (90-98.9); ARTERIAL BLOOD GAS BASE EXCESS 20.7 meq/l (-2-2); ARTERIAL BLOOD GAS HCO3 46.5 meq/L (22-26)
[2017-01-18 23:22] LABS: ALLENS TEST POSITIVE; ART PUNCT SITE RIGHT BRACHIAL; ARTERIAL BLOOD GAS pH 7.57 (7.35-7.45); LPM/O2% 60; MECH. VENT. YES; PT. ON O2? YES; TYPE OF O2 VENT; VENT RATE 18; VT/PRESS 450
[2017-01-18] MEDS ORDERED: MIDAZOLAM 100 MG in SODIUM CHLORIDE 100 ML IVPB SCH (23:45)
--- NOTE | 2017-01-19 | PDOC ---
History of Present Illness - History of Present Illness Initial Comments: 01/19/17 00:22 Patient is a 71 year old female from [facility] with significant medical hx of COPD , HTN, ulcerative colitis, anxiety and schizophrenia who is presenting to the ED via EMS unresponsive. Call to EMS from [facility] came in today at 7:46PM after the patient was found unresponsive. EMS states that patient was not talking but opening her eyes and was semi responsive to pain in the field. EMS reports that patient did not have a response to narcan after it was given. They state that her O2Sat was 98% on arrival and 100% once on nasal cannula. Patient is full code. PCP: Eitan Jones MD Allergies: penicillins <Eli Hercules - Last Filed: 01/19/17 01:42> <Zain Fowler - Last Filed: 01/19/17 01:44> - General Chief Complaint: Respiratory Arrest Stated Complaint: RESPIRATORY DISTRESS Time Seen by Provider: 01/18/17 20:36 Past History <Eli Hercules - Last Filed: 01/19/17 01:42> - Past Medical History COPD: Yes GI Disorders: Yes (GERD, ULCERATIVE COLITIS) HTN: Yes Psychiatric Problems: Yes (ANXIETY,SCHIZOPHRENIA, MDD) - Psycho/Social/Smoking Cessation Hx Anxiety: Yes Suicidal Ideation: No Smoking Status: No Smoking History: Unknown if ever smoked Have you smoked in the past 12 months: No Number of Cigarettes Smoked Daily: 0 If you are a former smoker, when did you quit?: 3 years ago Information on smoking cessation initiated: No Hx Alcohol Use: No Drug/Substance Use Hx: No Substance Use Type: None Hx Substance Use Treatment: No <Zain Fowler - Last Filed: 01/19/17 01:44> - Past Medical History Allergies/Adverse Reactions: Allergies Allergy/AdvReac Type Severity Reaction Status Date / Time penicillinase Allergy Unknown Verified 01/18/17 20:34 Home Medications: Ambulatory Orders Mirtazapine [Remeron -] 30 mg PO DAILY 10/03/16 Nitroglycerin [Nitrostat] 0.4 mg SL PRN PRN 10/03/16 Pantoprazole Sodium 40 mg PO DAILY 10/03/16 Sodium Chloride 1,000 gm PO TID 10/03/16 Tiotropium [place] [Spiriva] 18 mcg IH DAILY 10/03/16 Verapamil HCl [Verapamil ER] 120 mg PO DAILY 10/03/16 Acetaminophen [Tylenol .Regular Strength -] 650 mg PO Q6H PRN #0 tablet Aclidinium [place] [Tudorza -] 1 puff IH BID inhaler 10/09/16 Albuterol 0.083% Nebulizer Audra [Ventolin 0.083% Nebulizer Soln -] 1 amp NEB Q4H PRN #0 amp 10/09/16 Heparin - 5,000 unit SQ BID vial 10/09/16 Levofloxacin [Levaquin] 500 mg PO DAILY #5 tablet 10/09/16 Levothyroxine [Synthroid -] 25 mcg PO DAILY #30 tablet 10/09/16 Lorazepam [Ativan] 1 mg PO TID PRN #0 tablet MDD 3 10/09/16 Prednisone [Deltasone -] 10 mg PO DAILY #30 tablet 10/09/16 Review of Systems - Review of Systems Comments:: 01/19/17 01:24 Unable to obtain due to patient's clinical condition <Zain Fowler - Last Filed: 01/19/17 01:44> *Physical Exam - Vital Signs Last Vital Signs Temp Pulse Resp BP Pulse Ox 94.6 F L 74 18 92/46 100 01/18/17 20:43 01/18/17 20:25 01/18/17 22:00 01/18/17 21:17 01/18/17 20:25 <Eli Hercules - Last Filed: 01/19/17 01:42> - Vital Signs Last Vital Signs Temp Pulse Resp BP Pulse Ox 94.6 F L 74 18 92/46 100 01/18/17 20:43 01/18/17 20:25 01/18/17 22:00 01/18/17 21:17 01/18/17 20:25 - Physical Exam Comments: 01/19/17 01:25 patient was seen and evaluated by me immediately upon arrival. This physical exam is being recorded after transfer to the ICU. On arrival: EXAMINATION CONSTITUTIONAL: Unresponsive, does not respond to sternal rub, BVM in progress; HEAD: Normocephalic; atraumatic EYES: PERRL; ENMT: External appears normal; secretions within oropharynx NECK: Supple; non-tender; CARD: Normal S1, S2; no murmurs, rubs, or gallops RESP: Post intubation: Breath sounds are coarse bilaterally and decrease at the bases bilaterally; ABD: Soft, non-distended; non-tender; no palpable organomegaly, no palpable hernias EXT: No deformity; + ecchymosis to the left upper extremity; distal pulses intact SKIN: Warm, dry, no petechia NEURO: Unresponsive, GCS-3; <Zain Fowler - Last Filed: 01/19/17 01:44> Procedures - Intubation Time of Intubation: 07:45 Blade used: Mac Tube Size (Fr): 7.0 Medications: Etomidate, Succinylcholine Tube position @ lip (cm): 21 Tube position confirmed by: Direct visualization, CO2 detector, Chest x-ray, Breath sounds Breath Sounds after Intubation: equal Intubation Complications: no complications Post Intubation Xray: Yes Progress/Xray Impression: ET tube placement confirmed, in good position. <Zain Fowler - Last Filed: 01/19/17 01:44> Heart Score/ECG Review #1 01/19/17 00:23 Normal sinus rhythm at 79 bpm Normal ECG <Eli Hercules - Last Filed: 01/19/17 01:42> ED Treatment Course - LABORATORY CBC & Chemistry Diagram: 01/18/17 20:55 01/18/17 20:55 - ADDITIONAL ORDERS Additional order review: Laboratory Results 01/18/17 01/18/17 01/18/17 23:00 22:00 21:20 INR PTT (Actin FS) Puncture Site Right brachial Right radial ABG pH 7.57 H D 7.28 L ABG pCO2 at Pt Temp 49.5 H D 102.0 H* D ABG pO2 at Pt Temp 149.0 H D 309.0 H* D ABG HCO3 46.5 H* 46.4 H* ABG O2 Sat (Measured) 98.5 98.6 ABG O2 Content 11.9 L 12.7 L ABG Base Excess 20.7 H* 17.2 H* Claus Test Positive Positive VBG pH 7.21 L* POC VBG pCO2 119.0 H* POC VBG pO2 146.0 H Mixed VBG HCO3 46.0 H* Carboxyhemoglobin 0.5 Methemoglobin 0.3 L O2 Delivery Device Vent Vent Oxygen Flow Rate 60 100% Vent Mode A/c A/c Vent Rate 18 14 Mechanical Rate Yes Yes PEEP 5.0 0.0 Pressure Support Vent 450 400 Sodium Potassium Chloride Carbon Dioxide Anion Gap BUN Creatinine Creat Clearance w eGFR Random Glucose Lactic Acid Calcium Total Bilirubin AST ALT Alkaline Phosphatase Creatine Kinase Troponin I Total Protein Albumin Urine Color Urine Appearance Urine pH Ur Specific Grulla Urine Protein Urine Glucose (UA) Urine Ketones Urine Blood Urine Nitrite Urine Bilirubin Urine Urobilinogen Ur Leukocyte Esterase Urine RBC Urine WBC Ur Epithelial Cells Hyaline Casts Urine Mucus Blood Type Antibody Screen 01/18/17 01/18/17 01/18/17 21:20 20:55 20:55 INR PTT (Actin FS) Puncture Site ABG pH ABG pCO2 at Pt Temp ABG pO2 at Pt Temp ABG HCO3 ABG O2 Sat (Measured) ABG O2 Content ABG Base Excess Claus Test VBG pH POC VBG pCO2 POC VBG pO2 Mixed VBG HCO3 Carboxyhemoglobin Methemoglobin O2 Delivery Device Oxygen Flow Rate Vent Mode Vent Rate Mechanical Rate PEEP Pressure Support Vent Sodium 143 Potassium 3.7 Chloride 91 L Carbon Dioxide 50 H Anion Gap 2 L BUN 10 Creatinine < 0.2 L Creat Clearance w eGFR > 60 Random Glucose 163 H D Lactic Acid 1.7 Calcium 9.0 Total Bilirubin 0.1 L D AST 9 L ALT 9 L D Alkaline Phosphatase 112 D Creatine Kinase 27 Troponin I < 0.02 Total Protein 5.2 L Albumin 1.5 L D Urine Color Urine Appearance Urine pH Ur Specific [place]ulla Urine Protein Urine Glucose (UA) Urine Ketones Urine Blood Urine Nitrite Urine Bilirubin Urine Urobilinogen Ur Leukocyte Esterase Urine RBC Urine WBC Ur Epithelial Cells Hyaline Casts Urine Mucus Blood Type A NEGATIVE Antibody Screen Negative 01/18/17 01/18/17 20:55 20:55 INR 1.10 PTT (Actin FS) 29.6 Puncture Site ABG pH ABG pCO2 at Pt Temp ABG pO2 at Pt Temp ABG HCO3 ABG O2 Sat (Measured) ABG O2 Content ABG Base Excess Claus Test VBG pH POC VBG pCO2 POC VBG pO2 Mixed VBG HCO3 Carboxyhemoglobin Methemoglobin O2 Delivery Device Oxygen Flow Rate Vent Mode Vent Rate Mechanical Rate PEEP Pressure Support Vent Sodium Potassium Chloride Carbon Dioxide Anion Gap BUN Creatinine Creat Clearance w eGFR Random Glucose Lactic Acid Calcium Total Bilirubin AST ALT Alkaline Phosphatase Creatine Kinase Troponin I Total Protein Albumin Urine Color Yellow Urine Appearance Clear Urine pH 5.0 Ur Specific [place] 1.020 Urine Protein 1+ H Urine Glucose (UA) Negative Urine Ketones Negative Urine Blood Negative Urine Nitrite Negative Urine Bilirubin Negative Urine Urobilinogen Negative Ur Leukocyte Esterase Negative Urine RBC 6 Urine WBC 7 Ur Epithelial Cells Rare Hyaline Casts 14 Urine Mucus Few Blood Type Antibody Screen 01/18/17 20:55 RBC 2.96 L MCV 94.2 MCHC 30.6 L RDW 16.3 H D MPV 6.9 L Neutrophils % 82.0 Lymphocytes % 4.0 L Monocytes % 5.0 - Medications Given in the ED: ED Medications Discontinued Medications Generic Name Dose Route Start Last Admin Trade Name Freq PRN Reason Stop Dose Admin Etomidate 20 mg 01/18/17 21:04 01/18/17 21:00 Amidate - IVPUSH 01/18/17 21:05 20 mg ONCE ONE Administration Vancomycin HCl 1,000 mg/ 250 mls @ 250 mls/hr 01/18/17 21:05 01/18/17 21:44 Dextrose IVPB 01/18/17 22:04 250 mls/hr ONCE ONE Administration Protocol Sodium Chloride 500 mls @ 500 mls/hr 01/18/17 23:00 01/18/17 23:02 Normal Saline - IV 01/18/17 23:59 500 mls/hr ASDIR STA Administration Lorazepam 4 mg 01/18/17 21:05 01/18/17 21:18 Ativan Injection - IVPUSH 01/18/17 21:06 4 mg ONCE ONE Administration Piperacillin Sod/Tazobactam Sod 3.375 gm 01/18/17 21:05 01/18/17 21:19 Zosyn 3.375gm Ivpb (Pre-Docked) IV 01/18/17 21:06 3.375 gm ONCE ONE Administration Protocol Succinylcholine Chloride 100 mg 01/18/17 21:04 01/18/17 21:02 Quelicin - IVPUSH 01/18/17 21:05 100 mg ONCE ONE Administration <Eli Hercules - Last Filed: 01/19/17 01:42> - LABORATORY CBC & Chemistry Diagram: 01/18/17 20:55 01/18/17 20:55 - ADDITIONAL ORDERS Additional order review: Laboratory Results 01/18/17 01/18/17 01/18/17 23:00 22:00 21:20 INR PTT (Actin FS) Puncture Site Right brachial Right radial ABG pH 7.57 H D 7.28 L ABG pCO2 at Pt Temp 49.5 H D 102.0 H* D ABG pO2 at Pt Temp 149.0 H D 309.0 H* D ABG HCO3 46.5 H* 46.4 H* ABG O2 Sat (Measured) 98.5 98.6 ABG O2 Content 11.9 L 12.7 L ABG Base Excess 20.7 H* 17.2 H* Claus Test Positive Positive VBG pH 7.21 L* POC VBG pCO2 119.0 H* POC VBG pO2 146.0 H Mixed VBG HCO3 46.0 H* Carboxyhemoglobin 0.5 Methemoglobin 0.3 L O2 Delivery Device Vent Vent Oxygen Flow Rate 60 100% Vent Mode A/c A/c Vent Rate 18 14 Mechanical Rate Yes Yes PEEP 5.0 0.0 Pressure Support Vent 450 400 Sodium Potassium Chloride Carbon Dioxide Anion Gap BUN Creatinine Creat Clearance w eGFR Random Glucose Lactic Acid Calcium Total Bilirubin AST ALT Alkaline Phosphatase Creatine Kinase Troponin I Total Protein Albumin Urine Color Urine Appearance Urine pH Ur Specific [place] Urine Protein Urine Glucose (UA) Urine Ketones Urine Blood Urine Nitrite Urine Bilirubin Urine Urobilinogen Ur Leukocyte Esterase Urine RBC Urine WBC Ur Epithelial Cells Hyaline Casts Urine Mucus Blood Type Antibody Screen 01/18/17 01/18/17 01/18/17 21:20 20:55 20:55 INR PTT (Actin FS) Puncture Site ABG pH ABG pCO2 at Pt Temp ABG pO2 at Pt Temp ABG HCO3 ABG O2 Sat (Measured) ABG O2 Content ABG Base Excess Claus Test VBG pH POC VBG pCO2 POC VBG pO2 Mixed VBG HCO3 Carboxyhemoglobin Methemoglobin O2 Delivery Device Oxygen Flow Rate Vent Mode Vent Rate Mechanical Rate PEEP Pressure Support Vent Sodium 143 Potassium 3.7 Chloride 91 L Carbon Dioxide 50 H Anion Gap 2 L BUN 10 Creatinine < 0.2 L Creat Clearance w eGFR > 60 Random Glucose 163 H D Lactic Acid 1.7 Calcium 9.0 Total Bilirubin 0.1 L D AST 9 L ALT 9 L D Alkaline Phosphatase 112 D Creatine Kinase 27 Troponin I < 0.02 Total Protein 5.2 L Albumin 1.5 L D Urine Color Urine Appearance Urine pH Ur Specific [place] Urine Protein Urine Glucose (UA) Urine Ketones Urine Blood Urine Nitrite Urine Bilirubin Urine Urobilinogen Ur Leukocyte Esterase Urine RBC Urine WBC Ur Epithelial Cells Hyaline Casts Urine Mucus Blood Type A NEGATIVE Antibody Screen Negative 01/18/17 01/18/17 20:55 20:55 INR 1.10 PTT (Actin FS) 29.6 Puncture Site ABG pH ABG pCO2 at Pt Temp ABG pO2 at Pt Temp ABG HCO3 ABG O2 Sat (Measured) ABG O2 Content ABG Base Excess Claus Test VBG pH POC VBG pCO2 POC VBG pO2 Mixed VBG HCO3 Carboxyhemoglobin Methemoglobin O2 Delivery Device Oxygen Flow Rate Vent Mode Vent Rate Mechanical Rate PEEP Pressure Support Vent Sodium Potassium Chloride Carbon Dioxide Anion Gap BUN Creatinine Creat Clearance w eGFR Random Glucose Lactic Acid Calcium Total Bilirubin AST ALT Alkaline Phosphatase Creatine Kinase Troponin I Total Protein Albumin Urine Color Yellow Urine Appearance Clear Urine pH 5.0 Ur Specific [place] 1.020 Urine Protein 1+ H Urine Glucose (UA) Negative Urine Ketones Negative Urine Blood Negative Urine Nitrite Negative Urine Bilirubin Negative Urine Urobilinogen Negative Ur Leukocyte Esterase Negative Urine RBC 6 Urine WBC 7 Ur Epithelial Cells Rare Hyaline Casts 14 Urine Mucus Few Blood Type Antibody Screen 01/18/17 20:55 RBC 2.96 L MCV 94.2 MCHC 30.6 L RDW 16.3 H D MPV 6.9 L Neutrophils % 82.0 Lymphocytes % 4.0 L Monocytes % 5.0 - RADIOLOGY Radiology Studies Ordered: Category Date Time Status CHEST CT WITHOUT CONTRAST [CT] Stat CT Scan 01/18/17 21:[address] WITHOUT CONTRAST [CT] Stat CT Scan 01/18/17 21:06 Taken CHEST X-RAY PORTABLE* [RAD] Stat Radiology 01/18/17 20:36 Taken - Medications Given in the ED: ED Medications Discontinued Medications Generic Name Dose Route Start Last Admin Trade Name Freq PRN Reason Stop Dose Admin Etomidate 20 mg 01/18/17 21:04 01/18/17 21:00 Amidate - IVPUSH 01/18/17 21:05 20 mg ONCE ONE Administration Vancomycin HCl 1,000 mg/ 250 mls @ 250 mls/hr 01/18/17 21:05 01/18/17 21:44 Dextrose IVPB 01/18/17 22:04 250 mls/hr ONCE ONE Administration Protocol Sodium Chloride 500 mls @ 500 mls/hr 01/18/17 23:00 01/18/17 23:02 Normal Saline - IV 01/18/17 23:59 500 mls/hr ASDIR STA Administration Lorazepam 4 mg 01/18/17 21:05 01/18/17 21:18 Ativan Injection - IVPUSH 01/18/17 21:06 4 mg ONCE ONE Administration Piperacillin Sod/Tazobactam Sod 3.375 gm 01/18/17 21:05 01/18/17 21:19 Zosyn 3.375gm Ivpb (Pre-Docked) IV 01/18/17 21:06 3.375 gm ONCE ONE Administration Protocol Succinylcholine Chloride 100 mg 01/18/17 21:04 01/18/17 21:02 Quelicin - IVPUSH 01/18/17 21:05 100 mg ONCE ONE Administration <Zain Fowler - Last Filed: 01/19/17 01:44> Medical Decision Making - Critical Care Time Total Critical Care Time (minutes): 55 Critical Care Statement: The care of this patient involved high complexity decision making to prevent further life threatening deterioration of the patient 's condition and/or to evalute & treat vital organ system(s) failure or risk of failure. <Eli Hercules - Last Filed: 01/19/17 01:42> - Medical Decision Making 01/19/17 01:31 Patient 71-year-old female with history of COPD, schizophrenia, altered colitis , anxiety, depression who presented to the ER in respiratory arrest after having been found unresponsive at the [place] [facility]. Patient required immediate intubation for respiratory arrest. ET tube was placed under direct visualization and confirmed by capnometry, asked rotation and post intubation chest x-ray. Immediately after intubation, large amount of gastric content was suctioned from the ET tube. Patient's rectal temperature was noted to be 94.5. I suspect aspiration pneumonitis/pneumonia with sepsis. Blood and urine cultures are been obtained. Gonzales catheter placed for measurements of ins and outs. Broad-spectrum antibiotics including vancomycin and Zosyn administered for nosocomial pneumonia. Initial ABG revealed severe hypercapnia and acidosis. Tidal volume and respiratory rate were increased accordingly. Patient received 2 boluses of normal saline at 500 mL each for transient hypotension. CBC reveals significant leukocytosis of 20,000 wit hematocrit of 27. lactic acid is wnl. Chest x-ray revealed bilateral lower lobe infiltrates. CT of head showed no evidence of acute intracranial pathology. CT of chest showed several pulmonary nodules suspicious for malignancy. Bilateral pleural effusions and small pericardial effusion were also noted. Repeat ABG showed resolution of hypercapnia and mild alkalosis. Patient transferred to the ICU for further evaluation and treatment. <Zain Fowler - Last Filed: 01/19/17 01:44> *DC/Admit/Observation/Transfer - Attestations Scribe Attestion: 01/19/17 00:23 Documentation prepared by Eli Hercules, acting as medical appointment clerk for Zain Fowler MD. <Eli Hercules - Last Filed: 01/19/17 01:42> - Discharge Dispostion Admit: Yes <Zain Fowler - Last Filed: 01/19/17 01:44> Diagnosis at time of Disposition: Aspiration pneumonia Qualifiers: Aspiration pneumonia type: unspecified Laterality: bilateral Lung location: lower lobe of lung Qualified Code(s): J69.0 - Pneumonitis due to inhalation of food and vomit - Referrals
[2017-01-19] MEDS ORDERED: ACETAMINOPHEN 1000 MG/100 ML VIAL (NON FORMULARY) IVPB ONE (01:44)
--- NOTE | 2017-01-19 01:50 | CONSULT ---
Consult - text type - Consultation Consultation Note: PULM/CCM Reason for Consult: acute on chronic respiratory failure CC: unresponsive HPI: Briefly Ms Florez is a 71 year old woman resident from [facility] with past medical hx notable for COPD (40+ pack year hx of tobacco, 3 previous intubations, chronic steroids) , HTN, ulcerative colitis, anxiety, schizophrenia who presented to ED via EMS after being found unresponsive. EMS called by detention this evening around 7, pt was found unresponive in her room. She was only opening eyes to noxious stimuli, Spo2 was 100 on NC at 4 L. Was given narcan without improvement. BVM was initiated and pt was urgently transferred to ED here. Pt was non-responsive and with poor to non-existent respiratory drive. She was intubated using RSI, large volume of stomach content aspirated from ETT. ABG/chemistry revealed acute on chronic resp failure (7.28/ 100, Hco3 50). She was febrile and wbc was 20K, see cxl done and started on broad spectrum abx (Vanc and PT) and sedated with Versed. CT head and Chest performed. Head w/o large obvious infarct and chest showing significant emphysema, small R LL pna/atelectesis, some fluid in fissure on L, no pneumothorax (my reads). UA had 7wbc but neg LE, neg Nit. Transferred to ICU for further management. repeat ABG with alkalosis, vent adjusted accordingly. Family updated Pmhx COPD (multiple intubations, exacerbations) HTN ulcerative colitis psych Psx: none Social : [place] resident for few years, dependant in most adls. 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, unk ETOH Family: non contrib Ambulatory Orders Mirtazapine [Remeron -] 30 mg PO DAILY 10/03/16 Nitroglycerin [Nitrostat] 0.4 mg SL PRN PRN 10/03/16 Pantoprazole Sodium 40 mg PO DAILY 10/03/16 Sodium Chloride 1,000 gm PO TID 10/03/16 Tiotropium [place] [Spiriva] 18 mcg IH DAILY 10/03/16 Verapamil HCl [Verapamil ER] 120 mg PO DAILY 10/03/16 Acetaminophen [Tylenol .Regular Strength -] 650 mg PO Q6H PRN #0 tablet Aclidinium [place] [Tudorza -] 1 puff IH BID inhaler 10/09/16 Albuterol 0.083% Nebulizer Audra [Ventolin 0.083% Nebulizer Soln -] 1 amp NEB Q4H PRN #0 amp 10/09/16 Heparin - 5,000 unit SQ BID vial 10/09/16 Levofloxacin [Levaquin] 500 mg PO DAILY #5 tablet 10/09/16 Levothyroxine [Synthroid -] 25 mcg PO DAILY #30 tablet 10/09/16 Lorazepam [Ativan] 1 mg PO TID PRN #0 tablet MDD 3 10/09/16 Prednisone [Deltasone -] 10 mg PO DAILY #30 tablet 10/09/16 Active Medications Fentanyl (Sublimaze Injection -) 50 mcg IVPUSH Q1H PRN PRN Reason: AGITATION Stop: 01/20/17 01:44 Sodium Chloride (Normal Saline -) 500 ml IV Q20M PRN PRN Reason: MAP<65mm Hg OR SBP <90 Last Admin: 01/18/17 21:17 Dose: 500 ml Contact: Apolinar (primary surrogate) [phone] Daughter Nadira [phone] ROS: unable as pt sedated intubated Vital Signs Temp 101.5 F H 01/19/17 01:43 Pulse 91 H 01/19/17 01:43 Resp 14 01/19/17 01:43 BP 101/73 01/19/17 01:43 Pulse Ox 100 01/19/17 01:02 Intake & Output 01/18/17 01/18/17 01/19/17 11:59 23:59 11:59 Output Total 75 Balance -75 Weight 47.627 kg 46.72 kg Output: Urine 75 Gonzales 75 Other: Voiding Method Indwelling Catheter Height 4 ft 11 in 5 ft 5 in Body Mass Index (BMI) 21.2 17.1 Weight Measurement Method Built in [facility] Weight Measurement Method Estimated by Staff CBC, BMP 01/18/17 20:55 01/18/17 20:55 ABG Results ABG pH 7.57 (7.35-7.45) H D 01/18/17 23:00 ABG pCO2 at Pt Temp 49.5 mmHg (35-45) H D 01/18/17 23:00 ABG pO2 at Pt Temp 149.0 mmHg (70-100) H D 01/18/17 23:00 ABG HCO3 46.5 meq/L (22-26) H* 01/18/17 23:00 ABG O2 Sat (Measured) 98.5 % (90-98.9) 01/18/17 23:00 ABG O2 Content 11.9 % vol (15-22) L 01/18/17 23:00 ABG Base Excess 20.7 meq/l (-2-2) H* 01/18/17 23:00 Urine Test Results Urine Color Yellow 01/18/17 20:55 Urine Appearance Clear 01/18/17 20:55 Urine pH 5.0 (5.0-8.0) 01/18/17 20:55 Ur Specific [place] 1.020 (1.005-1.025) 01/18/17 20:55 Urine Protein 1+ (NEGATIVE) H 01/18/17 20:55 Urine Glucose (UA) Negative (NEGATIVE) 01/18/17 20:55 Urine Ketones Negative (NEGATIVE) 01/18/17 20:55 Urine Blood Negative (NEGATIVE) 01/18/17 20:55 Urine Nitrite Negative (NEGATIVE) 01/18/17 20:55 Urine Bilirubin Negative (NEGATIVE) 01/18/17 20:55 Ur Leukocyte Esterase Negative (NEGATIVE) 01/18/17 20:55 Urine RBC 6 /hpf (0-3) 01/18/17 20:55 Urine WBC 7 /hpf (3-5) 01/18/17 20:55 Ur Epithelial Cells Rare /hpf (FEW) 01/18/17 20:55 Urine Mucus Few 01/18/17 20:55 PE: Gen- eld woman intubated sedated HEENT: orally intubated, PERRL at 3mm bilaterally, NCAT PULM: few wheezes, scattered rhonchi CV: rrr, no m/r/g appreciated ABD: soft, + BS EXT: no edema, + pulses throughout, heel ulcer bilat Back: 6x8 stage 1 sacral decub DERM: no rash CT chest: RLL infiltrate, ephysema (my read), read pending CT Head: no obvious infarct, no blood (my read) , read pending EKG: ST at 90, normal intervals, no ishemic changes (per report), ekg not in chart, repeat pending A/ 71 y/o woman with end stage COPD and chronic hypercapnea now with acute on chronic hypercapnea resp failure in setting of likely aspiration event vs exacerbation P/ -full vent support, maintain mild hypercapnea to hold Hco3 which she will need to be successfully extubated - tolerate spo2 of 90-92. -will start solumedrol as actively wheezing -duonebs - this is pts 4th intubation, low threshold to move to tracheostomy if in line with pt/family wishes -agree with broad spectrum abx as unclear percipitating events -minimize sedation, daily interuption -GI and DVT prophy -maintain in ICU Kota Moore ANCP [id number].
[2017-01-19 01:54] VITALS: BMI 17.1
[2017-01-19] MEDS ORDERED: ALBUTEROL SO4 2.5/IPRATROPIUM 0.5 INH SOL 3 ML VIAL.NEB. NEB PRN (02:07)
[2017-01-19] MEDS ORDERED: methylPREDNISolone NA SUCC 125 MG/2 ML VIAL ONE (02:11)
[2017-01-19] MEDS: methylPREDNISolone NA SUCC 40 MG/1 ML VIAL IVPB SCH ×4 (02:14→21:06)
[2017-01-19] MEDS: HEPARIN NA (PORCINE) 5,000 UNITS/ML 1ML VIAL SQ SCH ×3 (02:47→21:06)
[2017-01-19] MEDS ORDERED: PIPERACILLIN/TAZOB 3.375 GM 50 ML IVPB ONE (06:00)
[2017-01-19 06:39] LABS: MCH 29.3 pg (25.7-33.7); MCHC 31.4 g/dl (32.0-36.0); MEAN CELL VOLUME 93.3 fl (80-96); MEAN PLT VOLUME 6.8 fl (7.5-11.1); PLATELET COUNT 369 K/MM3 (134-434); RDW 15.7 % (11.6-15.6); WHITE BLOOD COUNT 15.3 K/mm3 (4.0-10.0)
[2017-01-19 06:54] LABS: CALCIUM 8.5 mg/dL (8.5-10.1); CREATININE < 0.2 mg/dL (0.55-1.02); GLUCOSE,RANDOM 91 mg/dL (74-106); MAGNESIUM 1.6 mg/dL (1.8-2.4)
[2017-01-19 07:19] LABS: ARTERIAL BLD GAS O2 SATURATION 96.4 % (90-98.9); ARTERIAL BLOOD GAS BASE EXCESS 22.5 meq/l (-2-2); ARTERIAL BLOOD GAS HCO3 47.7 meq/L (22-26)
[2017-01-19 07:20] LABS: ALLENS TEST POSITIVE; ART PUNCT SITE RIGHT RADIAL; LPM/O2% 40%; MECH. VENT. ESPRIT; PT. ON O2? YES; TYPE OF O2 MEC.VENT; VENT RATE 12; VT/PRESS 450
[2017-01-19 07:22] LABS: ARTERIAL BLOOD GAS PO2 60.9 mmHg (70-100); ARTERIAL BLOOD GAS pH 7.61 (7.35-7.45)
[2017-01-19 07:22] LABS: PHOSPHOROUS 0.7 mg/dL (2.5-4.9)
[2017-01-19 08:03] LABS: ANION GAP 3 (8-16); CO2 48 mmol/L (21-32)
--- NOTE | 2017-01-19 08:08 | HP ---
Admitting History and Physical - Admission History of Present Illness: 71 year old woman resident from [facility] with past medical hx notable for COPD (40+ pack year hx of tobacco, 3 previous intubations, chronic steroids) , HTN, ulcerative colitis, anxiety, schizophrenia who presented to ED via EMS after being found unresponsive. EMS called by jail this evening around 7 , pt was found unresponive in her room. She was only opening eyes to noxious stimuli, Spo2 was 100 on NC at 4 L. Was given narcan without improvement. BVM was initiated and pt was urgently transferred to ED here. Pt was non-responsive and with poor to non-existent respiratory drive. She was intubated using RSI, large volume of stomach content aspirated from ETT. ABG/chemistry revealed acute on chronic resp failure (7.28/100, Hco3 50). She was febrile and wbc was 20K, see cxl done and started on broad spectrum abx (Vanc and PT) and sedated with Versed. CT head and Chest performed. Head w/o large obvious infarct and chest showing significant emphysema, small R LL pna/atelectesis, some fluid in fissure on L, no pneumothorax (my reads). UA had 7wbc but neg LE, neg Nit. - Past Medical History Cardiovascular: Yes: HTN Pulmonary: Yes: COPD Gastrointestinal: Yes: Ulcerative Colitis Renal/: Yes: Other (hyponatremia) ...: No Psych: Yes: Anxiety, Depression, Schizophrenia - Smoking History Smoking history: Unknown if ever smoked Have you smoked in the past 12 months: No Aproximately how many cigarettes per day: 0 If you are a former smoker, when did you quit?: 3 years ago - Alcohol/Substance Use Hx Alcohol Use: No Home Medications - Allergies Allergies/Adverse Reactions: Allergies Allergy/AdvReac Type Severity Reaction Status Date / Time penicillinase Allergy Unknown Verified 01/18/17 20:34 - Home Medications Home Medications: Ambulatory Orders Mirtazapine [Remeron -] 30 mg PO DAILY 10/03/16 Nitroglycerin [Nitrostat] 0.4 mg SL PRN PRN 10/03/16 Pantoprazole Sodium 40 mg PO DAILY 10/03/16 Sodium Chloride 1,000 gm PO TID 10/03/16 Tiotropium [place] [Spiriva] 18 mcg IH DAILY 10/03/16 Verapamil HCl [Verapamil ER] 120 mg PO DAILY 10/03/16 Acetaminophen [Tylenol .Regular Strength -] 650 mg PO Q6H PRN #0 tablet Aclidinium [place] [Tudorza -] 1 puff IH BID inhaler 10/09/16 Albuterol 0.083% Nebulizer Audra [Ventolin 0.083% Nebulizer Soln -] 1 amp NEB Q4H PRN #0 amp 10/09/16 Heparin - 5,000 unit SQ BID vial 10/09/16 Levofloxacin [Levaquin] 500 mg PO DAILY #5 tablet 10/09/16 Levothyroxine [Synthroid -] 25 mcg PO DAILY #30 tablet 10/09/16 Lorazepam [Ativan] 1 mg PO TID PRN #0 tablet MDD 3 10/09/16 Prednisone [Deltasone -] 10 mg PO DAILY #30 tablet 10/09/16 Review of Systems - Review of Systems Respiratory: reports: Other (respiratory failure) Physical Examination Vital Signs: Vital Signs Temperature 101.2 F H 01/19/17 06:00 Pulse Rate 97 H 01/19/17 06:00 Respiratory Rate 12 01/19/17 07:16 Blood Pressure 110/73 01/19/17 06:00 O2 Sat by Pulse Oximetry (%) 100 01/19/17 03:09 Cardiovascular: Yes: S1, S2 Respiratory: Yes: Mechanically Ventilated Gastrointestinal: Yes: Normal Bowel Sounds, Soft Edema: No Labs: CBC, BMP 01/19/17 05:15 01/19/17 05:15 Imaging - Results X-ray: Report Reviewed Problem List - Problems (1) Aspiration pneumonia Assessment/Plan: IV ANTIBIOTICS ID CONSULT VENT SUPPORT Code(s): J69.0 - PNEUMONITIS DUE TO INHALATION OF FOOD AND VOMIT Qualifiers: Aspiration pneumonia type: unspecified Laterality: bilateral Lung location: lower lobe of lung Qualified Code(s): J69.0 - Pneumonitis due to inhalation of food and vomit (2) Acute on chronic respiratory failure with hypoxia and hypercapnia Assessment/Plan: ON VENT-- PULM NEBS STEROIDS Code(s): J96.21 - ACUTE AND CHRONIC RESPIRATORY FAILURE WITH HYPOXIA J96.22 - ACUTE AND CHRONIC RESPIRATORY FAILURE WITH HYPERCAPNIA (3) Hypokalemia Assessment/Plan: REPLACE K AND MAG Code(s): E87.6 - HYPOKALEMIA (4) Lung nodule Assessment/Plan: R/O METS PULMONARY CONSULT Code(s): R91.1 - SOLITARY PULMONARY NODULE
[2017-01-19] MEDS ORDERED: POTASSIUM PHOSPHATE 40 MM in DEXTROSE 5%-WATER - 500 ML IVPB ONE (08:15)
[2017-01-19 09:35] LABS: TROPONIN I < 0.02 ng/ml (0.00-0.05)
[2017-01-19] MEDS: FAMOTIDINE 20 MG/50 ML IVPB 50 ML IVPB SCH ×2 (09:46→21:06)
[2017-01-19] MEDS: KCL 10 MEQ IVPB 100 ML IVPB SCH ×2 (09:47→11:18)
[2017-01-19] MEDS: MUPIROCIN 2% TOPICAL OINTMENT FOR DECOLONIZATION NS SCH ×2 (09:59→21:07)
[2017-01-19] MEDS ORDERED: PIPERACILLIN/TAZOB 3.375 GM 50 ML IVPB SCH (10:00)
[2017-01-19] MEDS ORDERED: VANCOMYCIN 750 MG in DEXTROSE 5%-WATER - 250 ML IVPB ONE (10:00)
[2017-01-19] MEDS: LEVOTHYROXINE NA 25 MCG TABLET (FP) PO SCH (10:05)
[2017-01-19] MEDS ORDERED: CEFEPIME HCL 1 GM VIAL (RESTRICTED TO ID) IVPB SCH (10:30)
--- NOTE | 2017-01-19 10:35 | PN ---
Progress Note (short form) - Note Progress Note: ID Consult dictated Sepsis/possible septic shock Respiratory failure Exacerbation COPD Bibasilar pneumonia/ possible aspiration pneumonia PCN allergy Leukocytosis Possible R lung mass Await c/s Ventilatory/ hemodynamic support Bronchodilators/ steroids Empiric vanco/ cefepime/ flagyl in this PCN allergic patient Critical care time 35min
--- NOTE | 2017-01-19 10:59 | CONS ---
INFECTIOUS DISEASE CONSULTATION DATE OF CONSULTATION: DATE OF DICTATION: 01/19/2017 The patient is a 71-year-old female with a history of COPD and schizophrenia evaluated for pneumonia. The patient is a halfway resident. She is presently intubated. History was obtained from the chart. She was found unresponsive at the halfway. She was given Narcan with no significant improvement. The patient required intubation. According to the notes, a large amount of gastric contents were aspirated when the patient was intubated. They were suctioned from the ET tube. She was transferred to the emergency room where the patient had fever and an elevated white blood cell count. CAT scan of the chest shows bilateral pleural effusions and bibasilar consolidations right greater than left. There was also evidence of a right pulmonary mass. At the present time, she is in the intensive care unit. Cultures were obtained and she was empirically treated with vancomycin and Zosyn. She was hospitalized in September 2016 with a urinary tract infection, COPD, and pneumonia. PAST MEDICAL HISTORY: Positive for COPD, schizophrenia, hypertension, anxiety, ulcerative colitis. ALLERGIES: PENICILLIN. Nature of this allergy not known. MEDICATIONS: Include Remeron, pantoprazole, Spiriva, verapamil, Levaquin, Synthroid, Ativan, prednisone. SOCIAL HISTORY: [facility] resident. Dependent in activities of daily living. Positive history of tobacco use approximately 40 years. No documented history of alcohol abuse. SYSTEMS REVIEW: Neurologic: No seizure activity or focal weakness. Cardiac: Negative chest pain or palpitations. Respiratory: As per HPI. Gastrointestinal: Negative vomiting or diarrhea. Genitourinary: Negative for urinary tract infection. LABORATORY DATA: White count on admission 20.4 thousand with 82 neutrophils, 4 lymphocytes, 5 monocytes, 8 bands, hematocrit 28.4, platelet count 369. BUN 8, creatinine 0.2, potassium 2.9. Urinalysis: White cells 7. Blood and urine cultures are pending. PHYSICAL EXAMINATION: General: On examination, she is lethargic, on the ventilator. She is in no acute respiratory distress. Vital signs: Temperature 101.0, blood pressure 96/67, pulse 82 and regular, respirations 16 per minute. Eyes: Sclerae are anicteric. Throat: The patient is orally intubated. Neck: Supple. Heart: Heart sounds S1, S2, tachycardic. Lungs: Air entry bilaterally. Abdomen: Soft. No tenderness elicited. No masses, rebound or rigidity. Extremities: Negative for edema. IMPRESSION: 1. Sepsis/septic shock. 2. Respiratory failure/exacerbation of chronic obstructive pulmonary disease. 3. Bilateral pneumonia. 4. Right lung mass. 5. Marked leukocytosis. 6. PENICILLIN allergy. 7. History of schizophrenia. Await culture results. Obtain suction sputum C and S. Empiric antibiotic coverage for suspected halfway acquired versus aspiration pneumonia in this PENICILLIN-allergic patient with cefepime, Flagyl and vancomycin. Continue ventilatory support, bronchodilators, and corticosteroids. Critical Care time spent 35 minutes. We will follow. Thank you for the kind referral. FARRUKH BRODERICK M.D. [id number]
[2017-01-19] MEDS: VANCOMYCIN 1 GRAM (PRE-DOCKED) 250 ML IVPB SCH ×2 (11:17→21:06)
[2017-01-19] MEDS: METRONIDAZOLE 500 MG PREMIXED 100 ML IVPB SCH ×2 (11:18→17:36)
[2017-01-19] MEDS ORDERED: MAGNESIUM SULF 50% (8.12 MEQ/2 ML-1 GM VIAL) ONE (11:45)
[2017-01-19] MEDS: CEFEPIME 1 GM in DEXTROSE 5%-WATER - 100 ML IVPB SCH ×2 (11:48→17:36)
[2017-01-19] MEDS: MAGNESIUM SULF 50% (8.12 MEQ/2 ML-1 GM VIAL) IVPB ONE ×2 (11:49→13:14)
[2017-01-19] MEDS ORDERED: POTASSIUM PHOSPHATE 15 MM in DEXTROSE 5%-WATER - 250 ML IVPB ONE (12:00)
--- NOTE | 2017-01-19 12:41 | PN ---
Teaching Attending Note Name of Resident: Olivia Arcos ATTENDING PHYSICIAN STATEMENT I saw and evaluated the patient. I reviewed the resident's note and discussed the case with the resident. I agree with the resident's findings and plan as documented. SUBJECTIVE: Patient seen and examined in the ICU. Remains intubated. Lethargic but arousable and able to follow some simple commands. No pressors. AC Mode of vent. 40% FiO2. Intake & Output 01/16/17 01/17/17 01/18/17 01/19/17 23:59 23:59 23:59 23:59 Intake Total 100 Output Total 75 500 Balance -75 -400 Weight 105 lb 103 lb Last Vital Signs Temp Pulse Resp BP Pulse Ox 100.9 F H 80 12 114/74 98 01/19/17 10:00 01/19/17 10:00 01/19/17 11:53 01/19/17 10:00 01/19/17 09:45 Active Medications Albuterol/Ipratropium (Duoneb -) 1 amp NEB Q4H PRN PRN Reason: SHORTNESS OF BREATH Chlorhexidine Gluconate (Hibiclens For Decolonization -) 1 applic TP HS [facility] Fentanyl (Sublimaze Injection -) 50 mcg IVPUSH Q1H PRN PRN Reason: AGITATION Stop: 01/20/17 01:44 Last Admin: 01/19/17 02:14 Dose: 50 mcg Heparin Sodium (Porcine) (Heparin -) 5,000 unit SQ TID [facility] Last Admin: 01/19/17 02:47 Dose: 5,000 unit Famotidine/Sodium Chloride (Pepcid 20 Mg Premixed Ivpb -) 50 mls @ 100 mls/hr IVPB BID [facility] Last Admin: 01/19/17 09:46 Dose: 100 mls/hr Potassium Phosphate 15 mm/ (Dextrose) 255 mls @ 63.75 mls/hr IVPB ONCE ONE Stop: 01/19/17 15:59 Last Admin: 01/19/17 11:44 Dose: 63.75 mls/hr Metronidazole (Flagyl 500mg Premixed Ivpb -) 100 mls @ 100 mls/hr IVPB Q8H-IV ARIEL Last Admin: 01/19/17 11:18 Dose: 100 mls/hr Vancomycin HCl (Vancomycin (Pre-Docked)) 250 mls @ 166.667 mls/hr IVPB BID ARIEL PRN Reason: Protocol Last Admin: 01/19/17 11:17 Dose: 166.667 mls/hr Cefepime HCl 1 gm/ Dextrose 100 mls @ 200 mls/hr IVPB Q8H-IV ARIEL Last Admin: 01/19/17 11:48 Dose: 200 mls/hr Levothyroxine Sodium (Synthroid -) 25 mcg PO DAILY@0700 ARIEL Last Admin: 01/19/17 10:05 Dose: 25 mcg Methylprednisolone Sodium Succinate (Solu-Medrol -) 40 mg IVPB Q6H-IV ARIEL Last Admin: 01/19/17 09:46 Dose: 40 mg Mirtazapine (Remeron -) 30 mg PO HS [facility] Mupirocin (Bactroban Ointment (For Decolonization) -) 1 applic NS BID [facility] Stop: 01/24/17 09:59 Last Admin: 01/19/17 09:59 Dose: 1 applic Sodium Chloride (Normal Saline -) 500 ml IV Q20M PRN PRN Reason: MAP<65mm Hg OR SBP <90 Last Admin: 01/18/17 21:17 Dose: 500 ml Gen: elderly woman, intubated, lethargic HEENT: orally intubated, PERRL at 3mm bilaterally PULM: few scattered wheezes / rhonchi CV: rrr, no m/r/g appreciated ABD: soft, + BS EXT: no edema, (+) PP, (+) heel ulcer bilat Back: 6x8 stage 1 sacral decub Laboratory Results - last 24 hr 01/18/17 01/18/17 01/18/17 20:55 20:55 20:55 WBC 20.4 H D RBC 2.96 L Hgb 8.5 L D Hct 27.9 L MCV 94.2 MCHC 30.6 L RDW 16.3 H D Plt Count 414 D MPV 6.9 L Neutrophils % 82.0 Lymphocytes % 4.0 L Monocytes % 5.0 Band Neutrophils 8.0 Differential Comment Manual diff done Platelet Estimate Adequate Platelet Comment Rare giant plts Morphology Comment Slide scanned INR 1.10 PTT (Actin FS) 29.6 Puncture Site ABG pH ABG pCO2 at Pt Temp ABG pO2 at Pt Temp ABG HCO3 ABG O2 Sat (Measured) ABG O2 Content ABG Base Excess Claus Test VBG pH POC VBG pCO2 POC VBG pO2 Mixed VBG HCO3 Carboxyhemoglobin Methemoglobin O2 Delivery Device Oxygen Flow Rate Vent Mode Vent Rate Mechanical Rate PEEP Pressure Support Vent Sodium Potassium Chloride Carbon Dioxide Anion Gap BUN Creatinine Creat Clearance w eGFR Random Glucose Lactic Acid Calcium Phosphorus Magnesium Total Bilirubin AST ALT Alkaline Phosphatase Creatine Kinase Troponin I Total Protein Albumin Urine Color Yellow Urine Appearance Clear Urine pH 5.0 Ur Specific [place] 1.020 Urine Protein 1+ H Urine Glucose (UA) Negative Urine Ketones Negative Urine Blood Negative Urine Nitrite Negative Urine Bilirubin Negative Urine Urobilinogen Negative Ur Leukocyte Esterase Negative Urine RBC 6 Urine WBC 7 Ur Epithelial Cells Rare Hyaline Casts 14 Urine Mucus Few Blood Type Antibody Screen 01/18/17 01/18/17 01/18/17 20:55 20:55 21:20 WBC RBC Hgb Hct MCV MCHC RDW Plt Count MPV Neutrophils % Lymphocytes % Monocytes % Band Neutrophils Differential Comment Platelet Estimate Platelet Comment Morphology Comment INR PTT (Actin FS) Puncture Site ABG pH ABG pCO2 at Pt Temp ABG pO2 at Pt Temp ABG HCO3 ABG O2 Sat (Measured) ABG O2 Content ABG Base Excess Claus Test VBG pH POC VBG pCO2 POC VBG pO2 Mixed VBG HCO3 Carboxyhemoglobin Methemoglobin O2 Delivery Device Oxygen Flow Rate Vent Mode Vent Rate Mechanical Rate PEEP Pressure Support Vent Sodium 143 Potassium 3.7 Chloride 91 L Carbon Dioxide 50 H Anion Gap 2 L BUN 10 Creatinine < 0.2 L Creat Clearance w eGFR > 60 Random Glucose 163 H D Lactic Acid 1.7 Calcium 9.0 Phosphorus Magnesium Total Bilirubin 0.1 L D AST 9 L ALT 9 L D Alkaline Phosphatase 112 D Creatine Kinase 27 Troponin I < 0.02 Total Protein 5.2 L Albumin 1.5 L D Urine Color Urine Appearance Urine pH Ur Specific [place] Urine Protein Urine Glucose (UA) Urine Ketones Urine Blood Urine Nitrite Urine Bilirubin Urine Urobilinogen Ur Leukocyte Esterase Urine RBC Urine WBC Ur Epithelial Cells Hyaline Casts Urine Mucus Blood Type A NEGATIVE Antibody Screen Negative 01/18/17 01/18/17 01/18/17 21:20 22:00 23:00 WBC RBC Hgb Hct MCV MCHC RDW Plt Count MPV Neutrophils % Lymphocytes % Monocytes % Band Neutrophils Differential Comment Platelet Estimate Platelet Comment Morphology Comment INR PTT (Actin FS) Puncture Site Right radial Right brachial ABG pH 7.28 L 7.57 H D ABG pCO2 at Pt Temp 102.0 H* D 49.5 H D ABG pO2 at Pt Temp 309.0 H* D 149.0 H D ABG HCO3 46.4 H* 46.5 H* ABG O2 Sat (Measured) 98.6 98.5 ABG O2 Content 12.7 L 11.9 L ABG Base Excess 17.2 H* 20.7 H* Claus Test Positive Positive VBG pH 7.21 L* POC VBG pCO2 119.0 H* POC VBG pO2 146.0 H Mixed VBG HCO3 46.0 H* Carboxyhemoglobin 0.5 Methemoglobin 0.3 L O2 Delivery Device Vent Vent Oxygen Flow Rate 100% 60 Vent Mode A/c A/c Vent Rate 14 18 Mechanical Rate Yes Yes PEEP 0.0 5.0 Pressure Support Vent 400 450 Sodium Potassium Chloride Carbon Dioxide Anion Gap BUN Creatinine Creat Clearance w eGFR Random Glucose Lactic Acid Calcium Phosphorus Magnesium Total Bilirubin AST ALT Alkaline Phosphatase Creatine Kinase Troponin I Total Protein Albumin Urine Color Urine Appearance Urine pH Ur Specific [place] Urine Protein Urine Glucose (UA) Urine Ketones Urine Blood Urine Nitrite Urine Bilirubin Urine Urobilinogen Ur Leukocyte Esterase Urine RBC Urine WBC Ur Epithelial Cells Hyaline Casts Urine Mucus Blood Type Antibody Screen 01/19/17 01/19/17 01/19/17 05:15 05:15 05:15 WBC 15.3 H RBC 3.04 L Hgb 8.9 L Hct 28.4 L MCV 93.3 MCHC 31.4 L RDW 15.7 H Plt Count 369 MPV 6.8 L Neutrophils % Lymphocytes % Monocytes % Band Neutrophils Differential Comment Platelet Estimate Platelet Comment Morphology Comment INR PTT (Actin FS) Puncture Site ABG pH ABG pCO2 at Pt Temp ABG pO2 at Pt Temp ABG HCO3 ABG O2 Sat (Measured) ABG O2 Content ABG Base Excess Claus Test VBG pH POC VBG pCO2 POC VBG pO2 Mixed VBG HCO3 Carboxyhemoglobin Methemoglobin O2 Delivery Device Oxygen Flow Rate Vent Mode Vent Rate Mechanical Rate PEEP Pressure Support Vent Sodium 145 Potassium 2.9 L* D Chloride 94 L Carbon Dioxide 48 H Anion Gap 3 L BUN 8 Creatinine < 0.2 L Creat Clearance w eGFR Random Glucose 91 D Lactic Acid Calcium 8.5 Phosphorus 0.7 L* Magnesium 1.6 L Total Bilirubin AST ALT Alkaline Phosphatase Creatine Kinase 32 Cancelled Troponin I < 0.02 Cancelled Total Protein Albumin Urine Color Urine Appearance Urine pH Ur Specific [place] Urine Protein Urine Glucose (UA) Urine Ketones Urine Blood Urine Nitrite Urine Bilirubin Urine Urobilinogen Ur Leukocyte Esterase Urine RBC Urine WBC Ur Epithelial Cells Hyaline Casts Urine Mucus Blood Type Antibody Screen 01/19/17 07:10 WBC RBC Hgb Hct MCV MCHC RDW Plt Count MPV Neutrophils % Lymphocytes % Monocytes % Band Neutrophils Differential Comment Platelet Estimate Platelet Comment Morphology Comment INR PTT (Actin FS) Puncture Site Right radial ABG pH 7.61 H* ABG pCO2 at Pt Temp 46.7 H ABG pO2 at Pt Temp 60.9 L D ABG HCO3 47.7 H* ABG O2 Sat (Measured) 96.4 ABG O2 Content 11.2 L ABG Base Excess 22.5 H* Claus Test Positive VBG pH POC VBG pCO2 POC VBG pO2 Mixed VBG HCO3 Carboxyhemoglobin Methemoglobin O2 Delivery Device Mec.vent Oxygen Flow Rate 40% Vent Mode A/c Vent Rate 12 Mechanical Rate Esprit PEEP 5.0 Pressure Support Vent 450 Sodium Potassium Chloride Carbon Dioxide Anion Gap BUN Creatinine Creat Clearance w eGFR Random Glucose Lactic Acid Calcium Phosphorus Magnesium Total Bilirubin AST ALT Alkaline Phosphatase Creatine Kinase Troponin I Total Protein Albumin Urine Color Urine Appearance Urine pH Ur Specific [place] Urine Protein Urine Glucose (UA) Urine Ketones Urine Blood Urine Nitrite Urine Bilirubin Urine Urobilinogen Ur Leukocyte Esterase Urine RBC Urine WBC Ur Epithelial Cells Hyaline Casts Urine Mucus Blood Type Antibody Screen IMP: Acute Respiratory Failure due to AE of COPD/PNA Suspected bilateral PNA Advanced COPD with chronic hypercapnia (?) Aspiration Right lung mass -> Suspected malignancy Electrolyte Imbalance Leukocytosis PLAN: AC Mode of vent with vent adjustments ABX per ID Medrol BD TX Strict I&O Will need to further evaluate lung mass once stable Wean trials as tolerated GI and DVT prophylaxis Dr Cornell Critical care time spent in reviewing chart, evaluating patient and formulating plan 36 min
[2017-01-19 13:22] LABS: ALBUMIN 1.4 g/dl (3.4-5.0); ANION GAP 4 (8-16); BILIRUBIN,TOTAL 0.4 mg/dL (0.2-1.0); CALCIUM 8.2 mg/dL (8.5-10.1); CO2 43 mmol/L (21-32); CREATININE < 0.2 mg/dL (0.55-1.02); GLUCOSE,RANDOM 103 mg/dL (74-106); SGOT/AST 16 U/L (15-37); SGPT/ALT 10 U/L (12-78); TOT PROT 4.7 g/dl (6.4-8.2)
[2017-01-19 13:27] LABS: ALK PHOS 106 U/L (45-117)
[2017-01-19 13:32] LABS: PHOSPHOROUS 0.6 mg/dL (2.5-4.9)
--- NOTE | 2017-01-19 14:00 | PN ---
Physical Exam: SUBJECTIVE: Patient seen and examined. She is intubated, lethargic. OBJECTIVE: Vital Signs Period Temp Pulse Resp BP Sys/Kennedy Pulse Ox Last 24 Hr 100.2 F-101.5 F 63-97 12-17 96-142/67-76 98-100 GENERAL: The patient is awake, alert, intubated, in no acute distress. HEAD: Normal with no signs of trauma. EYES: PERRL, sclera anicteric, conjunctiva clear. ENT: dry mucous membranes. NECK: Trachea midline, supple. LUNGS: Breath sounds equal, diminished breath sounds bilaterally, no wheezes, no crackles, no accessory muscle use. HEART: Regular rate and rhythm, S1, S2 without murmur, rub or gallop. ABDOMEN: Soft, nontender, nondistended, normoactive bowel sounds, no guarding, no rebound. EXTREMITIES: warm, no edema. NEUROLOGICAL: No facial asymmetry, awake, gait not observed. PSYCH: Lethargic SKIN: Warm, dry, normal turgor, no rashes. Laboratory Results - last 24 hr 01/19/17 01/19/17 01/19/17 05:15 05:15 05:15 WBC 15.3 H RBC 3.04 L Hgb 8.9 L Hct 28.4 L MCV 93.3 MCHC 31.4 L RDW 15.7 H Plt Count 369 MPV 6.8 L Puncture Site ABG pH ABG pCO2 at Pt Temp ABG pO2 at Pt Temp ABG HCO3 ABG O2 Sat (Measured) ABG O2 Content ABG Base Excess Claus Test O2 Delivery Device Oxygen Flow Rate Vent Mode Vent Rate Mechanical Rate PEEP Pressure Support Vent Sodium 145 Potassium 2.9 L* D Chloride 94 L Carbon Dioxide 48 H Anion Gap 3 L BUN 8 Creatinine < 0.2 L Creat Clearance w eGFR Random Glucose 91 D Calcium 8.5 Phosphorus 0.7 L* Magnesium 1.6 L Total Bilirubin AST ALT Alkaline Phosphatase Creatine Kinase 32 Cancelled Troponin I < 0.02 Cancelled Total Protein Albumin 01/19/17 01/19/17 07:10 12:35 WBC RBC Hgb Hct MCV MCHC RDW Plt Count MPV Puncture Site Right radial ABG pH 7.61 H* ABG pCO2 at Pt Temp 46.7 H ABG pO2 at Pt Temp 60.9 L D ABG HCO3 47.7 H* ABG O2 Sat (Measured) 96.4 ABG O2 Content 11.2 L ABG Base Excess 22.5 H* Claus Test Positive O2 Delivery Device Mec.vent Oxygen Flow Rate 40% Vent Mode A/c Vent Rate 12 Mechanical Rate Esprit PEEP 5.0 Pressure Support Vent 450 Sodium 141 Potassium 3.4 L Chloride 94 L Carbon Dioxide 43 H Anion Gap 4 L BUN 8 Creatinine < 0.2 L Creat Clearance w eGFR > 60 Random Glucose 103 Calcium 8.2 L Phosphorus 0.6 L* Magnesium 2.0 D Total Bilirubin 0.4 D AST 16 D ALT 10 L Alkaline Phosphatase 106 Creatine Kinase Troponin I Total Protein 4.7 L Albumin 1.4 L Active Medications Generic Name Dose Route Start Last Admin Trade Name Freq PRN Reason Stop Dose Admin Albuterol/Ipratropium 1 amp 01/19/17 02:07 Duoneb - NEB Q4H PRN SHORTNESS OF BREATH Arformoterol Tartrate 1 amp 01/19/17 12:45 Brovana (Restricted To Pulmonology/Resp) - NEB BID ARIEL Chlorhexidine Gluconate 1 applic 01/19/17 22:00 Hibiclens For Decolonization - TP HS ARIEL Fentanyl 50 mcg 01/19/17 01:41 01/19/17 02:14 Sublimaze Injection - IVPUSH 01/20/17 01:44 50 mcg Q1H PRN Administration AGITATION Heparin Sodium (Porcine) 5,000 unit 01/19/17 02:45 01/19/17 13:22 Heparin - SQ 5,000 unit TID ARIEL Administration Famotidine/Sodium Chloride 50 mls @ 100 mls/hr 01/19/17 10:00 01/19/17 09:46 Pepcid 20 Mg Premixed Ivpb - IVPB 100 mls/hr BID ARIEL Administration Potassium Phosphate 15 mm/ 255 mls @ 63.75 mls/hr 01/19/17 12:00 01/19/17 11:44 Dextrose IVPB 01/19/17 15:59 63.75 mls/hr ONCE ONE Administration Metronidazole 100 mls @ 100 mls/hr 01/19/17 10:30 01/19/17 11:18 Flagyl 500mg Premixed Ivpb - IVPB 100 mls/hr Q8H-IV [facility]EL Administration Vancomycin HCl 250 mls @ 166.667 mls/hr 01/19/17 10:30 01/19/17 11:17 Vancomycin (Pre-Docked) IVPB 166.667 mls/hr BID ARIEL Administration Protocol Cefepime HCl 1 gm/ Dextrose 100 mls @ 200 mls/hr 01/19/17 11:00 01/19/17 11:48 IVPB 200 mls/hr Q8H-IV ARIEL Administration Levothyroxine Sodium 25 mcg 01/19/17 10:00 01/19/17 10:05 Synthroid - PO 25 mcg DAILY@0700 ARIEL Administration Methylprednisolone Sodium Succinate 40 mg 01/19/17 03:00 01/19/17 09:46 Solu-Medrol - IVPB 40 mg Q6H-IV ARIEL Administration Mirtazapine 30 mg 01/19/17 22:00 Remeron - PO HS ARIEL Mupirocin 1 applic 01/19/17 10:00 01/19/17 09:59 Bactroban Ointment (For Decolonization) - NS 01/24/17 09:59 1 applic BID ARIEL Administration Sodium Chloride 500 ml 01/18/17 20:38 01/18/17 21:17 Normal Saline - IV 500 ml Q20M PRN Administration MAP<65mm Hg OR SBP <90 ASSESSMENT/PLAN: 71 y/o woman with PMH of COPD, HTN, UC, hypothyroidism, anxiety, schizophrenia presented with acute respiratory failure. Adnitted to ICU for further monitoring. acute on chronic hypercapnic respiratory failure -history of severe COPD -vent support for now, FiO2 40% -not ready for extubation today, dyspneic on CPAP -cont Solumedrol, will taper tomorrow -ashley -this is pts 4th intubation Pleural effusions: -started on Vancomycin and Zosyn, consulted ID and will continue empiric Cefepime, Flagyl and Vancomycin -will f/u CXR daily -blood cultures, urine cultures pending Lung mass: right upper lobe spiculated mass seen on CT chest will f/u with Dr. Emerson Hypokalemia: -repleted Hypophophosphatemia: -repleted Hypertension: no meds, BP stable Anxiety; -cont Mirtazapine Hypothyroidism: cont Synthroid DVT PPX: Heparin 5000 u SQ GI prophylaxis: Famotidine F/E/N: no/low K, phos, Mg/NPO Disposition: monitor in ICU Problem List - Problems (1) Hypokalemia Code(s): E87.6 - HYPOKALEMIA (2) Acute on chronic respiratory failure with hypoxia and hypercapnia Code(s): J96.21 - ACUTE AND CHRONIC RESPIRATORY FAILURE WITH HYPOXIA J96.22 - ACUTE AND CHRONIC RESPIRATORY FAILURE WITH HYPERCAPNIA (3) COPD exacerbation Code(s): J44.1 - CHRONIC OBSTRUCTIVE PULMONARY DISEASE W (ACUTE) EXACERBATION (4) Lung nodule Code(s): R91.1 - SOLITARY PULMONARY NODULE (5) Schizophrenia Code(s): F20.9 - SCHIZOPHRENIA, UNSPECIFIED Visit type - Emergency Visit Emergency Visit: Yes ED Registration Date: 01/19/17 Care time: The patient presented to the Emergency Department on the above date and was hospitalized for further evaluation of their emergent condition. - New Patient This patient is new to me today: Yes Date on this admission: 01/19/17 - Critical Care Critical Care patient: Yes Total Critical Care Time (in minutes): 45 Critical Care Statement: The care of this patient involved high complexity decision making to prevent further life threatening deterioration of the patient 's condition and/or to evalute & treat vital organ system(s) failure or risk of failure.
[2017-01-19] MEDS: ARFORMOTEROL TARTRATE 15 MCG/2 ML VIAL NEB SCH ×2 (14:10→21:40)
--- NOTE | 2017-01-19 17:10 | EKG ---
Test Reason : Blood Pressure : / mmHG Vent. Rate : 079 BPM Atrial Rate : 079 BPM P-R Int : 126 ms QRS Dur : 080 ms QT Int : 354 ms P-R-T Axes : 057 074 076 degrees QTc Int : 405 ms NORMAL SINUS RHYTHM POOR R WAVE PROGRESSION NORMAL ECG Confirmed by MD ZAYDA, JAYMIE ([id number]) on 01/19/2017 5:09:55 PM Referred By: Confirmed By:JAYMIE PRIEST MD
[2017-01-19] MEDS ORDERED: PT OWN MED DRAWER 7, Y5N ONE (17:12)
[2017-01-19] MEDS ORDERED: MIRTAZAPINE 15 MG TABLET (FP) ONE (21:02)
[2017-01-19] MEDS: CHLORHEXIDINE GLUCONATE 4% CLEANSER FOR DECOLONIZATION TP SCH (21:06)
[2017-01-19] MEDS ORDERED: VANCOMYCIN 750 MG in DEXTROSE 5%-WATER - 250 ML IVPB SCH (22:00)
[2017-01-19] MEDS ORDERED: MIRTAZAPINE 30 MG TABLET (FP) PO SCH (22:00)
[2017-01-20] MEDS: CEFEPIME 1 GM in DEXTROSE 5%-WATER - 100 ML IVPB SCH ×3 (02:14→17:18)
[2017-01-20] MEDS: methylPREDNISolone NA SUCC 40 MG/1 ML VIAL IVPB SCH ×4 (02:14→20:43)
[2017-01-20] MEDS: METRONIDAZOLE 500 MG PREMIXED 100 ML IVPB SCH ×3 (02:14→17:45)
[2017-01-20] MEDS: HEPARIN NA (PORCINE) 5,000 UNITS/ML 1ML VIAL SQ SCH ×3 (06:00→21:40)
[2017-01-20] MEDS: LEVOTHYROXINE NA 25 MCG TABLET (FP) PO SCH (06:00)
[2017-01-20 06:39] LABS: MCH 29.2 pg (25.7-33.7); MCHC 32.2 g/dl (32.0-36.0); MEAN CELL VOLUME 90.7 fl (80-96); MEAN PLT VOLUME 7.2 fl (7.5-11.1); NEUTROPHILS 92.7 % (42.8-82.8); PLATELET COUNT 380 K/MM3 (134-434); RDW 15.6 % (11.6-15.6)
[2017-01-20 07:13] LABS: ALBUMIN 1.5 g/dl (3.4-5.0); ALK PHOS 113 U/L (45-117); ANION GAP 6 (8-16); BILIRUBIN,TOTAL 0.2 mg/dL (0.2-1.0); CALCIUM 7.9 mg/dL (8.5-10.1); CO2 41 mmol/L (21-32); CREATININE 0.2 mg/dL (0.55-1.02); GLUCOSE,RANDOM 119 mg/dL (74-106); SGOT/AST 15 U/L (15-37); SGPT/ALT 9 U/L (12-78); TOT PROT 5.1 g/dl (6.4-8.2)
--- NOTE | 2017-01-20 08:28 | PN ---
Progress Note, Physician Chief Complaint: ID Follow up for sepsis and suspected lower lobe infiltrates Seen by Dr Harley given empiric therapy with Cefepime and metronidazole Dose vancomycin Remains afebrile 101.5 on admission - Current Medication List Current Medications: Active Medications Albuterol/Ipratropium (Duoneb -) 1 amp NEB Q4H PRN PRN Reason: SHORTNESS OF BREATH Arformoterol Tartrate (Brovana (Restricted To Pulmonology/Resp) -) 1 amp NEB BID [facility] Last Admin: 01/19/17 21:40 Dose: 1 amp Chlorhexidine Gluconate (Hibiclens For Decolonization -) 1 applic TP HS [facility] Last Admin: 01/19/17 21:06 Dose: 1 applic Heparin Sodium (Porcine) (Heparin -) 5,000 unit SQ TID [facility] Last Admin: 01/20/17 06:00 Dose: 5,000 unit Famotidine/Sodium Chloride (Pepcid 20 Mg Premixed Ivpb -) 50 mls @ 100 mls/hr IVPB BID [facility] Last Admin: 01/19/17 21:06 Dose: 100 mls/hr Metronidazole (Flagyl 500mg Premixed Ivpb -) 100 mls @ 100 mls/hr IVPB Q8H-IV [facility] Last Admin: 01/20/17 02:14 Dose: 100 mls/hr Vancomycin HCl (Vancomycin (Pre-Docked)) 250 mls @ 166.667 mls/hr IVPB BID ARIEL PRN Reason: Protocol Last Admin: 01/19/17 21:06 Dose: 166.667 mls/hr Cefepime HCl 1 gm/ Dextrose 100 mls @ 200 mls/hr IVPB Q8H-IV [facility] Last Admin: 01/20/17 02:14 Dose: 200 mls/hr Levothyroxine Sodium (Synthroid -) 25 mcg PO DAILY@0700 [facility] Last Admin: 01/20/17 06:00 Dose: 25 mcg Methylprednisolone Sodium Succinate (Solu-Medrol -) 40 mg IVPB Q6H-IV [facility] Last Admin: 01/20/17 02:14 Dose: 40 mg Mirtazapine (Remeron -) 30 mg PO HS [facility] Mupirocin (Bactroban Ointment (For Decolonization) -) 1 applic NS BID [facility] Stop: 01/24/17 09:59 Last Admin: 01/19/17 21:07 Dose: 1 applic Sodium Chloride (Normal Saline -) 500 ml IV Q20M PRN PRN Reason: MAP<65mm Hg OR SBP <90 Last Admin: 01/18/17 21:17 Dose: 500 ml - Objective Vital Signs: Vital Signs Temperature 97.7 F 01/20/17 06:00 Pulse Rate 50 L 01/20/17 08:00 Respiratory Rate 12 01/20/17 08:00 Blood Pressure 149/76 01/20/17 08:00 O2 Sat by Pulse Oximetry (%) 98 01/20/17 07:37 Constitutional: Yes: Thin HENT: Yes: Other (Et tube) Neck: Yes: WNL, Supple Cardiovascular: Yes: WNL, Regular Rate and Rhythm, Bradycardia, S1, S2. No: Murmur Respiratory: Yes: WNL, Regular, CTA Bilaterally, Diminished Gastrointestinal: Yes: WNL, Normal Bowel Sounds, Soft. No: Tenderness, Tenderness, Epigastrium Extremities: No: Cold, Cool, Cyanosis Edema: No Labs: CBC, BMP 01/20/17 05:20 01/20/17 05:20 INR, PTT INR 1.10 (0.82-1.09) 01/18/17 20:55 Assessment/Plan Microbiology 01/18/17 20:55 Blood - Peripheral Venous Blood Culture - Preliminary NO GROWTH OBTAINED AFTER 24 HOURS, INCUBATION TO CONTINUE FOR 4 DAYS. 01/18/17 20:55 Blood - Peripheral Venous Blood Culture - Preliminary NO GROWTH OBTAINED AFTER 24 HOURS, INCUBATION TO CONTINUE FOR 4 DAYS. Laboratory Tests 01/18/17 01/18/17 01/19/17 20:55 20:55 07:10 WBC Plt Count Monocytes % INR 1.10 ABG pH 7.61 H* ABG pCO2 at Pt Temp 46.7 H Oxygen Flow Rate 40% BUN Urine RBC 6 Urine WBC 7 01/20/17 01/20/17 05:20 05:20 WBC 12.0 H Plt Count 380 Monocytes % 2.1 L INR ABG pH ABG pCO2 at Pt Temp Oxygen Flow Rate BUN 9 Urine RBC Urine WBC Assessment Sepsis syndrome PNA source Hypercapneic respiratory failure Severe COPD Spiculated lung mass on imaging Plan Empiric therapy for PNA pending c/s Continue same meds for today [place] ZIMMER
[2017-01-20 08:47] LABS: PHOSPHOROUS 2.9 mg/dL (2.5-4.9)
[2017-01-20] MEDS: MUPIROCIN 2% TOPICAL OINTMENT FOR DECOLONIZATION NS SCH ×2 (09:29→21:39)
[2017-01-20] MEDS ORDERED: FUROSEMIDE 40 MG/4 ML INJECTABLE VIAL IVPUSH ONE (09:59)
[2017-01-20] MEDS: FAMOTIDINE 20 MG/50 ML IVPB 50 ML IVPB SCH ×2 (10:05→21:41)
--- NOTE | 2017-01-20 10:06 | PN ---
Progress Note (short form) - Note Progress Note: Pulm/CCM Patient seen and examined in the ICU. Remains intubated. On PS trial awake, anxious. afebrile, CXR still with some infiltrate Vital Signs Temp 97.7 F 01/20/17 06:00 Pulse 50 L 01/20/17 08:00 Resp 12 01/20/17 08:00 BP 149/76 01/20/17 08:00 Pulse Ox 98 01/20/17 07:37 Intake & Output 01/19/17 01/19/17 01/20/17 11:59 23:59 11:59 Intake Total 100 1380 230 Output Total 500 600 400 Balance -400 780 -170 Weight 46.72 kg 46.522 kg Intake: IVPB 100 1250 200 Tube Irrigant 130 30 Output: Urine 500 600 400 Gonzales 500 600 400 Other: Voiding Method Indwelling Catheter Indwelling Catheter Indwelling Catheter Bowel Movement Yes Yes Height 5 ft 5 in Body Mass Index (BMI) 17.1 Weight Measurement Method Built in Bedscale Built in Bedscale Active Medications Albuterol/Ipratropium (Duoneb -) 1 amp NEB Q4H PRN PRN Reason: SHORTNESS OF BREATH Arformoterol Tartrate (Brovana (Restricted To Pulmonology/Resp) -) 1 amp NEB BID [facility]EL Last Admin: 01/19/17 21:40 Dose: 1 amp Chlorhexidine Gluconate (Hibiclens For Decolonization -) 1 applic TP HS ARIEL Last Admin: 01/19/17 21:06 Dose: 1 applic Fentanyl (Sublimaze Injection -) 50 mcg IVPUSH Q2H PRN PRN Reason: MODERATE PAIN Stop: 01/21/17 09:14 Furosemide (Lasix Injection -) 20 mg IVPUSH ONCE ONE Stop: 01/20/17 10:00 Heparin Sodium (Porcine) (Heparin -) 5,000 unit SQ TID ARIEL Last Admin: 01/20/17 06:00 Dose: 5,000 unit Famotidine/Sodium Chloride (Pepcid 20 Mg Premixed Ivpb -) 50 mls @ 100 mls/hr IVPB BID ARIEL Last Admin: 01/19/17 21:06 Dose: 100 mls/hr Metronidazole (Flagyl 500mg Premixed Ivpb -) 100 mls @ 100 mls/hr IVPB Q8H-IV [facility]EL Last Admin: 01/20/17 02:14 Dose: 100 mls/hr Vancomycin HCl (Vancomycin (Pre-Docked)) 250 mls @ 166.667 mls/hr IVPB BID ARIEL PRN Reason: Protocol Last Admin: 01/19/17 21:06 Dose: 166.667 mls/hr Cefepime HCl 1 gm/ Dextrose 100 mls @ 200 mls/hr IVPB Q8H-IV [facility] Last Admin: 01/20/17 09:29 Dose: 200 mls/hr Levothyroxine Sodium (Synthroid -) 25 mcg PO DAILY@0700 [facility] Last Admin: 01/20/17 06:00 Dose: 25 mcg Methylprednisolone Sodium Succinate (Solu-Medrol -) 40 mg IVPB Q6H-IV ARIEL Last Admin: 01/20/17 09:28 Dose: 40 mg Mirtazapine (Remeron -) 30 mg PO HS [facility] Mupirocin (Bactroban Ointment (For Decolonization) -) 1 applic NS BID [facility] Stop: 01/24/17 09:59 Last Admin: 01/20/17 09:29 Dose: 1 applic Sodium Chloride (Normal Saline -) 500 ml IV Q20M PRN PRN Reason: MAP<65mm Hg OR SBP <90 Last Admin: 01/18/17 21:17 Dose: 500 ml Gen: elderly woman, intubated, awake, mildly anxious HEENT: orally intubated, PERRL , EOMI PULM: diminished but no wheezes, relatively weak CV: rrr, no m/r/g appreciated ABD: soft, + BS EXT: no edema, (+) PP, (+) heel ulcer bilat Back: 6x8 stage 1 sacral decub Neuro: intact, follows simple commands CBC, BMP 01/20/17 05:20 01/20/17 05:20 IMP: Acute Respiratory Failure due to AE of COPD/PNA Suspected bilateral PNA Advanced COPD with chronic hypercapnia (?) Aspiration Right lung mass -> Suspected malignancy Electrolyte Imbalance Leukocytosis PLAN: AC Mode of vent with vent adjustments, PS trial this am. ABG . Will discuss extubation/trach with pt/family ABX per ID Medrol taper BD TX Strict I&O , negative fluid balance for today pending extubation Will need to further evaluate lung mass once stable Wean trials as tolerated GI and DVT prophylaxis Kota Moore ACNP Critical care time spent in reviewing chart, evaluating patient and formulating plan 35 min
--- NOTE | 2017-01-20 10:29 | PN ---
Progress Note, Physician History of Present Illness: AWAKE ON VENT - Current Medication List Current Medications: Active Medications Albuterol/Ipratropium (Duoneb -) 1 amp NEB Q4H PRN PRN Reason: SHORTNESS OF BREATH Arformoterol Tartrate (Brovana (Restricted To Pulmonology/Resp) -) 1 amp NEB BID [facility] Last Admin: 01/19/17 21:40 Dose: 1 amp Chlorhexidine Gluconate (Hibiclens For Decolonization -) 1 applic TP HS [facility] Last Admin: 01/19/17 21:06 Dose: 1 applic Fentanyl (Sublimaze Injection -) 50 mcg IVPUSH Q2H PRN PRN Reason: MODERATE PAIN Stop: 01/21/17 09:14 Heparin Sodium (Porcine) (Heparin -) 5,000 unit SQ TID [facility] Last Admin: 01/20/17 06:00 Dose: 5,000 unit Famotidine/Sodium Chloride (Pepcid 20 Mg Premixed Ivpb -) 50 mls @ 100 mls/hr IVPB BID [facility] Last Admin: 01/20/17 10:05 Dose: 100 mls/hr Metronidazole (Flagyl 500mg Premixed Ivpb -) 100 mls @ 100 mls/hr IVPB Q8H-IV [facility] Last Admin: 01/20/17 02:14 Dose: 100 mls/hr Vancomycin HCl (Vancomycin (Pre-Docked)) 250 mls @ 166.667 mls/hr IVPB BID ARIEL PRN Reason: Protocol Last Admin: 01/19/17 21:06 Dose: 166.667 mls/hr Cefepime HCl 1 gm/ Dextrose 100 mls @ 200 mls/hr IVPB Q8H-IV [facility] Last Admin: 01/20/17 09:29 Dose: 200 mls/hr Levothyroxine Sodium (Synthroid -) 25 mcg PO DAILY@0700 [facility] Last Admin: 01/20/17 06:00 Dose: 25 mcg Methylprednisolone Sodium Succinate (Solu-Medrol -) 40 mg IVPB Q6H-IV [facility] Last Admin: 01/20/17 09:28 Dose: 40 mg Mirtazapine (Remeron -) 30 mg PO [facility] Mupirocin (Bactroban Ointment (For Decolonization) -) 1 applic NS BID [facility] Stop: 01/24/17 09:59 Last Admin: 01/20/17 09:29 Dose: 1 applic Sodium Chloride (Normal Saline -) 500 ml IV Q20M PRN PRN Reason: MAP<65mm Hg OR SBP <90 Last Admin: 01/18/17 21:17 Dose: 500 ml - Objective Vital Signs: Vital Signs Temperature 97.7 F 01/20/17 06:00 Pulse Rate 50 L 01/20/17 08:00 Respiratory Rate 25 H 01/20/17 10:00 Blood Pressure 149/76 01/20/17 08:00 O2 Sat by Pulse Oximetry (%) 98 01/20/17 10:00 Cardiovascular: Yes: Murmur, S1, S2 Respiratory: Yes: Mechanically Ventilated, Other (CLEAR NO WHEEZING) Labs: CBC, BMP 01/20/17 05:20 01/20/17 05:20 INR, PTT INR 1.10 (0.82-1.09) 01/18/17 20:55 Problem List - Problems (1) Aspiration pneumonia Assessment/Plan: IV ANTIBIOTICS ID CONSULT VENT SUPPORT Code(s): J69.0 - PNEUMONITIS DUE TO INHALATION OF FOOD AND VOMIT Qualifiers: Aspiration pneumonia type: unspecified Laterality: bilateral Lung location: lower lobe of lung Qualified Code(s): J69.0 - Pneumonitis due to inhalation of food and vomit (2) Acute on chronic respiratory failure with hypoxia and hypercapnia Assessment/Plan: ON VENT--START WEANING PULM NEBS STEROIDS Code(s): J96.21 - ACUTE AND CHRONIC RESPIRATORY FAILURE WITH HYPOXIA J96.22 - ACUTE AND CHRONIC RESPIRATORY FAILURE WITH HYPERCAPNIA (3) Hypokalemia Assessment/Plan: REPLACE K AND MAG Code(s): E87.6 - HYPOKALEMIA (4) Lung nodule Assessment/Plan: R/O METS-WILL NEED W/U PULMONARY CONSULT NOTED Code(s): R91.1 - SOLITARY PULMONARY NODULE (5) Sepsis Assessment/Plan: ABX CULTURES Code(s): A41.9 - SEPSIS, UNSPECIFIED ORGANISM
[2017-01-20 10:38] LABS: ARTERIAL BLD GAS O2 SATURATION 95.3 % (90-98.9); ARTERIAL BLOOD GAS BASE EXCESS 16.6 meq/l (-2-2); ARTERIAL BLOOD GAS HCO3 42.3 meq/L (22-26); ARTERIAL BLOOD GAS PO2 71.8 mmHg (70-100); ARTERIAL BLOOD GAS pH 7.49 (7.35-7.45)
[2017-01-20 10:39] LABS: ALLENS TEST POSITIVE; ART PUNCT SITE RIGHT RADIAL; LPM/O2% 40%; MECH. VENT. Y; PT. ON O2? YES; TYPE OF O2 VENT; VT/PRESS 5
[2017-01-20] MEDS: VANCOMYCIN 1 GRAM (PRE-DOCKED) 250 ML IVPB SCH ×2 (10:39→21:41)
[2017-01-20] MEDS: ARFORMOTEROL TARTRATE 15 MCG/2 ML VIAL NEB SCH ×2 (10:54→22:10)
--- NOTE | 2017-01-20 13:10 | CON.PSY ---
Psychiatry Consult Chief Complaint: Patient with a history of Schizophrenia, resident of a [facility]. Admitted with Respiratory distress. Extubated today. - Previous Psychiatric Treatment Outpatient: None Inpatient: One prior admission - Previous Substance Abuse Treatment Outpatient: None Inpatient: None - Reason for Previous Treatment Reason for Previous Treatment: Psychotic Episode - Current Medications Current Medications: Active Medications Albuterol/Ipratropium (Duoneb -) 1 amp NEB Q4H PRN PRN Reason: SHORTNESS OF BREATH Arformoterol Tartrate (Brovana (Restricted To Pulmonology/Resp) -) 1 amp NEB BID [facility] Last Admin: 01/20/17 10:54 Dose: 1 amp Chlorhexidine Gluconate (Hibiclens For Decolonization -) 1 applic TP HS [facility] Last Admin: 01/19/17 21:06 Dose: 1 applic Fentanyl (Sublimaze Injection -) 50 mcg IVPUSH Q2H PRN PRN Reason: MODERATE PAIN Stop: 01/21/17 09:14 Heparin Sodium (Porcine) (Heparin -) 5,000 unit SQ TID [facility] Last Admin: 01/20/17 06:00 Dose: 5,000 unit Famotidine/Sodium Chloride (Pepcid 20 Mg Premixed Ivpb -) 50 mls @ 100 mls/hr IVPB BID [facility] Last Admin: 01/20/17 10:05 Dose: 100 mls/hr Metronidazole (Flagyl 500mg Premixed Ivpb -) 100 mls @ 100 mls/hr IVPB Q8H-IV [facility] Last Admin: 01/20/17 12:50 Dose: 100 mls/hr Vancomycin HCl (Vancomycin (Pre-Docked)) 250 mls @ 166.667 mls/hr IVPB BID [facility] PRN Reason: Protocol Last Admin: 01/20/17 10:39 Dose: 166.667 mls/hr Cefepime HCl 1 gm/ Dextrose 100 mls @ 200 mls/hr IVPB Q8H-IV [facility] Last Admin: 01/20/17 09:29 Dose: 200 mls/hr Levothyroxine Sodium (Synthroid -) 25 mcg PO DAILY@0700 [facility] Last Admin: 01/20/17 06:00 Dose: 25 mcg Methylprednisolone Sodium Succinate (Solu-Medrol -) 40 mg IVPB Q6H-IV [facility] Last Admin: 01/20/17 09:28 Dose: 40 mg Mirtazapine (Remeron -) 30 mg PO HS [facility] Mupirocin (Bactroban Ointment (For Decolonization) -) 1 applic NS BID [facility] Stop: 01/24/17 09:59 Last Admin: 01/20/17 09:29 Dose: 1 applic Sodium Chloride (Normal Saline -) 500 ml IV Q20M PRN PRN Reason: MAP<65mm Hg OR SBP <90 Last Admin: 01/18/17 21:17 Dose: 500 ml - Allergies Allergies: Allergies Allergy/AdvReac Type Severity Reaction Status Date / Time penicillinase Allergy Unknown Verified 01/18/17 20:34 - Current Living Status Usual Living Arrangement: [facility] - Current Mental Status Evaluation Appearance: Disheveled Attitude: Cooperative - Affect Affect: Constrictive Appropriateness: Appropriate to Content - Mood Mood: Euthymic - Speech/Language Expressive: Delayed - Psychomotor Activity Psychomotor Activity: Slowed - Thought Process Thought Process: Circumstantial - Thought Content Hallucinations: Absent Delusions: Absent - Self Perception Self Perception: No Impairment - Cognition Attention: Alert Orientation: Time Memory, Immediate Recall: Intact Memory, Remote: Impaired - Concentration Serial Sevens Intact: No Simple Calculations Intact: No - Abstraction Proverb Interpretation: Impaired Judgement: Minimally Impaired - Insight Insight: Intact - Impulse Control Impulse Control: Minimally Impaired - Suicidal Ideation Suicidal Ideation: No - Homicidal Ideation Homicidal Ideation: No Assessment/Plan No [psych meds needed. Return to Home when medically stable.
[2017-01-20] MEDS ORDERED: PT OWN MED DRAWER 7, Y5N ONE (16:39)
--- NOTE | 2017-01-20 18:16 | PN ---
Progress Note (short form) - Note Progress Note: EVENT NOTE: Today I had the opportunity to meet with Ms Florez, with the support and in the presence of her , son, and two daughters regarding her current condition and goals of care. We discussed her chronic respiratory failure, recurrent hospitalizations and intubations (x 4), and her worsening frailty. We discussed the likelihood of her having further needs for mechanical ventilation and what the prognosis of buttermaker continuous churn ventilatory support. She made clear, in no uncertain terms, that she did not want to be reintubated for any reason, did not want aggressive medical measures or resuscitation. She asked to be allowed to eat or drink know the risks of compromise given recent aspiration. These requests were witnessed by family, who state these are in line with previously stated wishes and in line with her life goals. Pt is now DNR/DNI but with continued current medical therapy. All questions were answered. Palliative care to be contacted. PMD to be notified. Kota Moore [facility] [id number]
[2017-01-20] MEDS: CHLORHEXIDINE GLUCONATE 4% CLEANSER FOR DECOLONIZATION TP SCH (21:41)
[2017-01-20] MEDS: MIRTAZAPINE 15 MG TABLET (FP) PO SCH (21:47)
[2017-01-21] MEDS: METRONIDAZOLE 500 MG PREMIXED 100 ML IVPB SCH (01:22)
[2017-01-21] MEDS ORDERED: PT OWN MED DRAWER 7, Y5N ONE ×3 (01:24→20:54)
[2017-01-21] MEDS: CEFEPIME 1 GM in DEXTROSE 5%-WATER - 100 ML IVPB SCH (01:26)
[2017-01-21] MEDS: methylPREDNISolone NA SUCC 40 MG/1 ML VIAL IVPB SCH ×4 (02:55→21:24)
[2017-01-21] MEDS: HEPARIN NA (PORCINE) 5,000 UNITS/ML 1ML VIAL SQ SCH ×3 (05:22→21:24)
[2017-01-21] MEDS ORDERED: HEMOQUE TEST 1 EACH EACH ONE (05:29)
[2017-01-21 06:21] LABS: BASOPHIL 0.1 % (0-2.0); MCHC 32.3 g/dl (32.0-36.0); MEAN CELL VOLUME 89.7 fl (80-96); MEAN PLT VOLUME 6.9 fl (7.5-11.1); NEUTROPHILS 90.5 % (42.8-82.8); PLATELET COUNT 398 K/MM3 (134-434); RDW 15.6 % (11.6-15.6); WHITE BLOOD COUNT 8.9 K/mm3 (4.0-10.0)
[2017-01-21] MEDS: LEVOTHYROXINE NA 25 MCG TABLET (FP) PO SCH (06:23)
[2017-01-21 06:50] LABS: ALBUMIN 1.6 g/dl (3.4-5.0); BILIRUBIN,TOTAL 0.2 mg/dL (0.2-1.0); CREATININE < 0.2 mg/dL (0.55-1.02); GLUCOSE,RANDOM 125 mg/dL (74-106); SGOT/AST 12 U/L (15-37); SGPT/ALT 11 U/L (12-78); TOT PROT 5.1 g/dl (6.4-8.2)
[2017-01-21 06:51] LABS: ALK PHOS 102 U/L (45-117)
[2017-01-21 07:02] LABS: ANION GAP 4 (8-16); CO2 48 mmol/L (21-32)
--- NOTE | 2017-01-21 08:07 | PN ---
Progress Note, Physician Chief Complaint: ID ICU follow up for sepsis pneumonia doing well Vancomycin and Cefepime metronidazole Afebrile Patient weak and no distsress NO complaints - Current Medication List Current Medications: Active Medications Albuterol/Ipratropium (Duoneb -) 1 amp NEB Q4H PRN PRN Reason: SHORTNESS OF BREATH Arformoterol Tartrate (Brovana (Restricted To Pulmonology/Resp) -) 1 amp NEB BID [facility] Last Admin: 01/20/17 22:10 Dose: 1 amp Chlorhexidine Gluconate (Hibiclens For Decolonization -) 1 applic TP HS [facility] Last Admin: 01/20/17 21:41 Dose: 1 applic Fentanyl (Sublimaze Injection -) 50 mcg IVPUSH Q2H PRN PRN Reason: MODERATE PAIN Stop: 01/21/17 09:14 Heparin Sodium (Porcine) (Heparin -) 5,000 unit SQ TID [facility] Last Admin: 01/21/17 05:22 Dose: 5,000 unit Famotidine/Sodium Chloride (Pepcid 20 Mg Premixed Ivpb -) 50 mls @ 100 mls/hr IVPB BID [facility] Last Admin: 01/20/17 21:41 Dose: 100 mls/hr Metronidazole (Flagyl 500mg Premixed Ivpb -) 100 mls @ 100 mls/hr IVPB Q8H-IV [facility] Last Admin: 01/21/17 01:22 Dose: 100 mls/hr Vancomycin HCl (Vancomycin (Pre-Docked)) 250 mls @ 166.667 mls/hr IVPB BID [facility] PRN Reason: Protocol Last Admin: 01/20/17 21:41 Dose: 166.667 mls/hr Cefepime HCl 1 gm/ Dextrose 100 mls @ 200 mls/hr IVPB Q8H-IV [facility] Last Admin: 01/21/17 01:26 Dose: 200 mls/hr Levothyroxine Sodium (Synthroid -) 25 mcg PO DAILY@0700 [facility] Last Admin: 01/21/17 06:23 Dose: 25 mcg Methylprednisolone Sodium Succinate (Solu-Medrol -) 40 mg IVPB Q6H-IV [facility] Last Admin: 01/21/17 02:55 Dose: 40 mg Mirtazapine (Remeron -) 30 mg PO [facility] Last Admin: 01/20/17 21:47 Dose: 30 mg Mupirocin (Bactroban Ointment (For Decolonization) -) 1 applic NS BID [facility] Stop: 01/24/17 09:59 Last Admin: 01/20/17 21:39 Dose: 1 applic Sodium Chloride (Normal Saline -) 500 ml IV Q20M PRN PRN Reason: MAP<65mm Hg OR SBP <90 Last Admin: 01/18/17 21:17 Dose: 500 ml - Objective Vital Signs: Vital Signs Temperature 98.4 F 01/21/17 06:00 Pulse Rate 66 01/21/17 06:00 Respiratory Rate 18 01/21/17 06:00 Blood Pressure 139/65 01/21/17 06:00 O2 Sat by Pulse Oximetry (%) 100 01/20/17 22:00 Constitutional: Yes: No Distress, Thin HENT: Yes: WNL, Atraumatic Neck: Yes: WNL, Supple Cardiovascular: Yes: Regular Rate and Rhythm, S1, S2 Respiratory: Yes: WNL, Regular, CTA Bilaterally. No: Diminished, Rales, Rhonchi Gastrointestinal: Yes: WNL, Normal Bowel Sounds, Soft. No: Splenomegaly, Tenderness, Tenderness, Rebound Edema: No Labs: CBC, BMP 01/21/17 05:25 01/21/17 05:25 INR, PTT INR 1.10 (0.82-1.09) 01/18/17 20:55 Problem List - Problems (1) MRSA (methicillin resistant staph aureus) culture positive Code(s): Z22.322 - CARRIER OR SUSPECTED CARRIER OF METHICILLIN RESIS STAPH (2) Acute on chronic respiratory failure with hypoxia and hypercapnia Code(s): J96.21 - ACUTE AND CHRONIC RESPIRATORY FAILURE WITH HYPOXIA J96.22 - ACUTE AND CHRONIC RESPIRATORY FAILURE WITH HYPERCAPNIA (3) COPD exacerbation Code(s): J44.1 - CHRONIC OBSTRUCTIVE PULMONARY DISEASE W (ACUTE) EXACERBATION Assessment/Plan Microbiology 01/19/17 21:10 Urine For Antigen Detection Legionella Antigen - Final 01/19/17 21:10 Urine For Antigen Detection Streptococcus pneumoniae Antigen (M - Final 01/19/17 12:15 Sputum - Endotrachea Suction/Ventilator Gram Stain - Final 01/18/17 20:55 Urine - Urine Gonzales Urine Culture - Final NO GROWTH OBTAINED 01/19/17 12:15 Sputum - Endotrachea Suction/Ventilator Sputum Culture - Preliminary Presumptive Mrsa (Pbp2a Pos) 01/18/17 20:55 Blood - Peripheral Venous Blood Culture - Preliminary NO GROWTH OBTAINED AFTER 48 HOURS, INCUBATION TO CONTINUE FOR 3 DAYS. 01/18/17 20:55 Blood - Peripheral Venous Blood Culture - Preliminary NO GROWTH OBTAINED AFTER 48 HOURS, INCUBATION TO CONTINUE FOR 3 DAYS. Laboratory Tests 01/18/17 01/19/17 01/20/17 20:55 05:15 05:20 WBC 20.4 H D 15.3 H 12.0 H Hgb Hct Plt Count 01/21/17 05:25 WBC 8.9 Hgb 8.8 L Hct 27.2 L Plt Count 398 Assessment Pneumonia ? MRSA related Severe COPD Respiratory failure Hypercapneic respiratory failure Lung Mass Plan Stop metronidazole Stop Cefepime Substititute Ceftaroline MRSA coverage as well as gram neg coverage ( ? MRSA colonizer) Contact isolation Critical care time spent YES 38 minutes critical care time [place] ZIMMER
[2017-01-21] MEDS: FAMOTIDINE 20 MG/50 ML IVPB 50 ML IVPB SCH ×2 (09:36→21:24)
[2017-01-21] MEDS: MUPIROCIN 2% TOPICAL OINTMENT FOR DECOLONIZATION NS SCH ×2 (09:47→21:25)
--- NOTE | 2017-01-21 09:55 | PN ---
Progress Note, Physician History of Present Illness: AWAKE ON VENT - Current Medication List Current Medications: Active Medications Albuterol/Ipratropium (Duoneb -) 1 amp NEB Q4H PRN PRN Reason: SHORTNESS OF BREATH Arformoterol Tartrate (Brovana (Restricted To Pulmonology/Resp) -) 1 amp NEB BID [facility] Last Admin: 01/20/17 22:10 Dose: 1 amp Chlorhexidine Gluconate (Hibiclens For Decolonization -) 1 applic TP HS [facility] Last Admin: 01/20/17 21:41 Dose: 1 applic Heparin Sodium (Porcine) (Heparin -) 5,000 unit SQ TID [facility] Last Admin: 01/21/17 05:22 Dose: 5,000 unit Famotidine/Sodium Chloride (Pepcid 20 Mg Premixed Ivpb -) 50 mls @ 100 mls/hr IVPB BID [facility] Last Admin: 01/21/17 09:36 Dose: 100 mls/hr Ceftaroline Fosamil 600 mg/ (Dextrose) 100 mls @ 100 mls/hr IVPB BID [facility] PRN Reason: Protocol Levothyroxine Sodium (Synthroid -) 25 mcg PO DAILY@0700 [facility] Last Admin: 01/21/17 06:23 Dose: 25 mcg Methylprednisolone Sodium Succinate (Solu-Medrol -) 40 mg IVPB Q6H-IV [facility] Last Admin: 01/21/17 09:35 Dose: 40 mg Mirtazapine (Remeron -) 30 mg PO [facility] Last Admin: 01/20/17 21:47 Dose: 30 mg Mupirocin (Bactroban Ointment (For Decolonization) -) 1 applic NS BID [facility] Stop: 01/24/17 09:59 Last Admin: 01/21/17 09:47 Dose: 1 applic Sodium Chloride (Normal Saline -) 500 ml IV Q20M PRN PRN Reason: MAP<65mm Hg OR SBP <90 Last Admin: 01/18/17 21:17 Dose: 500 ml - Objective Vital Signs: Vital Signs Temperature 98.8 F 01/21/17 09:45 Pulse Rate 62 01/21/17 09:45 Respiratory Rate 18 01/21/17 09:45 Blood Pressure 138/72 01/21/17 09:45 O2 Sat by Pulse Oximetry (%) 100 01/20/17 22:00 Cardiovascular: Yes: S1, S2 Respiratory: Yes: Diminished, On Nasal O2, Rhonchi Gastrointestinal: Yes: Normal Bowel Sounds, Soft Labs: CBC, BMP 01/21/17 05:25 01/21/17 05:25 INR, PTT INR 1.10 (0.82-1.09) 01/18/17 20:55 Problem List - Problems (1) Aspiration pneumonia Assessment/Plan: IV ANTIBIOTICS ID CONSULT NOTED OFF VENT Code(s): J69.0 - PNEUMONITIS DUE TO INHALATION OF FOOD AND VOMIT Qualifiers: Aspiration pneumonia type: unspecified Laterality: bilateral Lung location: lower lobe of lung Qualified Code(s): J69.0 - Pneumonitis due to inhalation of food and vomit (2) Acute on chronic respiratory failure with hypoxia and hypercapnia Assessment/Plan: OFF VENT--DNR/DNI PULM NEBS STEROIDS Code(s): J96.21 - ACUTE AND CHRONIC RESPIRATORY FAILURE WITH HYPOXIA J96.22 - ACUTE AND CHRONIC RESPIRATORY FAILURE WITH HYPERCAPNIA (3) Hypokalemia Assessment/Plan: REPLACE K AND MAG Code(s): E87.6 - HYPOKALEMIA (4) Lung nodule Assessment/Plan: R/O METS-WILL NEED W/U PULMONARY CONSULT NOTED Code(s): R91.1 - SOLITARY PULMONARY NODULE (5) Sepsis Assessment/Plan: ABX CULTURES Code(s): A41.9 - SEPSIS, UNSPECIFIED ORGANISM
[2017-01-21] MEDS: CEFTAROLINE FOSAMIL ACETATE 600 MG in DEXTROSE 5%-WATER - 100 ML IVPB SCH ×2 (10:18→21:24)
[2017-01-21] MEDS: ARFORMOTEROL TARTRATE 15 MCG/2 ML VIAL NEB SCH ×2 (10:24→22:20)
[2017-01-21] MEDS: KCL 10 MEQ IVPB 100 ML IVPB SCH ×2 (10:45→12:00)
--- NOTE | 2017-01-21 11:19 | PN ---
Progress Note (short form) - Note Progress Note: Progress Note (short form) - Note Progress Note: Pulm/CCM Pt seen and examined in the ICU 24 HOUR EVENTS: -Comfortable on NC oxygen, complains of back pain, otherwise stable -Made DNR/DNI Current Medications Albuterol/Ipratropium (Duoneb -) 1 amp NEB Q4H PRN PRN Reason: SHORTNESS OF BREATH Arformoterol Tartrate (Brovana (Restricted To Pulmonology/Resp) -) 1 amp NEB BID [facility] Last Admin: 01/21/17 10:24 Dose: 1 amp Chlorhexidine Gluconate (Hibiclens For Decolonization -) 1 applic TP HS [facility] Last Admin: 01/20/17 21:41 Dose: 1 applic Heparin Sodium (Porcine) (Heparin -) 5,000 unit SQ TID [facility] Last Admin: 01/21/17 05:22 Dose: 5,000 unit Famotidine/Sodium Chloride (Pepcid 20 Mg Premixed Ivpb -) 50 mls @ 100 mls/hr IVPB BID [facility] Last Admin: 01/21/17 09:36 Dose: 100 mls/hr Ceftaroline Fosamil 600 mg/ (Dextrose) 100 mls @ 100 mls/hr IVPB BID [facility] PRN Reason: Protocol Last Admin: 01/21/17 10:18 Dose: 100 mls/hr Potassium Chloride (Potassium Chloride 10 Meq Premix Ivpb -) 100 mls @ 100 mls/ hr IVPB Q60M [facility] Stop: 01/21/17 11:59 Last Admin: 01/21/17 10:45 Dose: 100 mls/hr Levothyroxine Sodium (Synthroid -) 25 mcg PO DAILY@0700 [facility] Last Admin: 01/21/17 06:23 Dose: 25 mcg Methylprednisolone Sodium Succinate (Solu-Medrol -) 40 mg IVPB Q6H-IV [facility] Last Admin: 01/21/17 09:35 Dose: 40 mg Mirtazapine (Remeron -) 30 mg PO HS [facility] Last Admin: 01/20/17 21:47 Dose: 30 mg Mupirocin (Bactroban Ointment (For Decolonization) -) 1 applic NS BID [facility] Stop: 01/24/17 09:59 Last Admin: 01/21/17 09:47 Dose: 1 applic Sodium Chloride (Normal Saline -) 500 ml IV Q20M PRN PRN Reason: MAP<65mm Hg OR SBP <90 Last Admin: 01/18/17 21:17 Dose: 500 ml Vital Signs Temp 98.8 F 01/21/17 09:45 Pulse 85 01/21/17 10:23 Resp 18 01/21/17 09:45 BP 138/72 01/21/17 09:45 Pulse Ox 100 01/21/17 10:23 Intake & Output 01/20/17 01/21/17 01/21/17 18:59 06:59 18:59 Intake Total 650 700 150 Output Total 2300 1550 Balance -1650 -850 150 Weight 45.223 kg Intake: IVPB 650 500 150 Oral 200 Output: Urine 2300 1550 Gonzales 2300 1550 Other: Voiding Method Indwelling Catheter Indwelling Catheter Indwelling Catheter Weight Measurement Method Built in [facility] Gen: elderly woman, intubated, awake, mildly anxious HEENT: orally intubated, PERRL , EOMI PULM: diminished but no wheezes, relatively weak CV: rrr, no m/r/g appreciated ABD: soft, + BS EXT: no edema, (+) PP, (+) heel ulcer bilat Back: 6x8 stage 1 sacral decub Neuro: intact, follows simple commands CBC, BMP 01/21/17 05:25 01/21/17 05:25 IMP: Acute Respiratory Failure due to AE of COPD/PNA MRSA PNA Advanced COPD with chronic hypercapnia (?) Aspiration Right lung mass -> Suspected malignancy Electrolyte Imbalance Leukocytosis PLAN: ABX per ID Medrol taper BD TX Strict I&O , negative fluid balance Will need to further evaluate lung mass once stable Wean trials as tolerated GI and DVT prophylaxis DNR/DNI Transfer to the floor Danis Smiley Pulm/Critical Care [employer] Critical care time spent in reviewing chart, evaluating patient and formulating plan 35 min
[2017-01-21] MEDS: ACETAMINOPHEN 325 MG TABLET (FP) PO PRN (18:00)
[2017-01-21] MEDS: MIRTAZAPINE 15 MG TABLET (FP) PO SCH (21:24)
[2017-01-21] MEDS: CHLORHEXIDINE GLUCONATE 4% CLEANSER FOR DECOLONIZATION TP SCH (21:24)
[2017-01-22] MEDS: methylPREDNISolone NA SUCC 40 MG/1 ML VIAL IVPB SCH ×4 (03:29→21:37)
[2017-01-22] MEDS: HEPARIN NA (PORCINE) 5,000 UNITS/ML 1ML VIAL SQ SCH ×3 (05:28→21:37)
[2017-01-22] MEDS: LEVOTHYROXINE NA 25 MCG TABLET (FP) PO SCH (06:01)
[2017-01-22 06:27] LABS: MCH 29.2 pg (25.7-33.7); MCHC 32.7 g/dl (32.0-36.0); MEAN CELL VOLUME 89.4 fl (80-96); MEAN PLT VOLUME 6.9 fl (7.5-11.1); PLATELET COUNT 453 K/MM3 (134-434); RDW 14.8 % (11.6-15.6); WHITE BLOOD COUNT 10.6 K/mm3 (4.0-10.0)
[2017-01-22 06:50] LABS: CALCIUM 8.6 mg/dL (8.5-10.1); CREATININE 0.2 mg/dL (0.55-1.02); GLUCOSE,RANDOM 128 mg/dL (74-106); MAGNESIUM 1.9 mg/dL (1.8-2.4); PHOSPHOROUS 2.5 mg/dL (2.5-4.9)
[2017-01-22 07:42] LABS: ANION GAP -1 (8-16); CO2 53 mmol/L (21-32)
[2017-01-22] MEDS ORDERED: PT OWN MED DRAWER 7, Y5N ONE ×3 (08:40→21:26)
[2017-01-22] MEDS: MUPIROCIN 2% TOPICAL OINTMENT FOR DECOLONIZATION NS SCH ×2 (09:00→21:25)
[2017-01-22] MEDS: FAMOTIDINE 20 MG/50 ML IVPB 50 ML IVPB SCH ×2 (09:07→21:37)
[2017-01-22] MEDS: CEFTAROLINE FOSAMIL ACETATE 600 MG in DEXTROSE 5%-WATER - 100 ML IVPB SCH ×2 (09:07→22:26)
[2017-01-22] MEDS: ARFORMOTEROL TARTRATE 15 MCG/2 ML VIAL NEB SCH ×2 (09:46→22:20)
[2017-01-22] MEDS: ACETAMINOPHEN 325 MG TABLET (FP) PO PRN ×2 (10:00→21:37)
[2017-01-22] MEDS ORDERED: POTASSIUM CHLORIDE TABS 20 MEQ TABLET.ER (FP) PO ONE (15:35)
--- NOTE | 2017-01-22 16:13 | PN ---
Progress Note (short form) - Note Progress Note: extubated and transferred to floor she is alert NAD Vital Signs Period Temp Pulse Resp BP Sys/Kennedy Pulse Ox Last 24 Hr 98.2 F-99.7 F 66-89 20-24 114-129/66-78 98-100 cor-rrr lungs decreased bs at bases abd soft,nt ext no edema CBC, BMP 01/22/17 05:36 01/22/17 05:36 Microbiology 01/18/17 20:55 Blood - Peripheral Venous Blood Culture - Preliminary NO GROWTH OBTAINED AFTER 72 HOURS, INCUBATION TO CONTINUE FOR 2 DAYS. 01/18/17 20:55 Blood - Peripheral Venous Blood Culture - Preliminary NO GROWTH OBTAINED AFTER 72 HOURS, INCUBATION TO CONTINUE FOR 2 DAYS. 01/19/17 12:15 Sputum - Endotrachea Suction/Ventilator Gram Stain - Final 01/19/17 12:15 Sputum - Endotrachea Suction/Ventilator Sputum Culture - Final S Aureus 01/19/17 21:10 Urine For Antigen Detection Legionella Antigen - Final 01/19/17 21:10 Urine For Antigen Detection Streptococcus pneumoniae Antigen (M - Final 01/18/17 20:55 Urine - Urine Gonzales Urine Culture - Final NO GROWTH OBTAINED Current Medications Acetaminophen (Tylenol -) 650 mg PO Q6H PRN PRN Reason: FEVER OR PAIN Last Admin: 01/22/17 10:00 Dose: 650 mg Albuterol/Ipratropium (Duoneb -) 1 amp NEB Q4H PRN PRN Reason: SHORTNESS OF BREATH Arformoterol Tartrate (Brovana (Restricted To Pulmonology/Resp) -) 1 amp NEB BID [facility] Last Admin: 01/22/17 09:46 Dose: 1 amp Chlorhexidine Gluconate (Hibiclens For Decolonization -) 1 applic TP HS [facility] Last Admin: 01/21/17 21:24 Dose: 1 applic Heparin Sodium (Porcine) (Heparin -) 5,000 unit SQ TID [facility] Last Admin: 01/22/17 14:32 Dose: 5,000 unit Famotidine/Sodium Chloride (Pepcid 20 Mg Premixed Ivpb -) 50 mls @ 100 mls/hr IVPB BID [facility] Last Admin: 01/22/17 09:07 Dose: 100 mls/hr Ceftaroline Fosamil 600 mg/ (Dextrose) 100 mls @ 100 mls/hr IVPB BID [facility] PRN Reason: Protocol Last Admin: 01/22/17 09:07 Dose: 100 mls/hr Levothyroxine Sodium (Synthroid -) 25 mcg PO DAILY@0700 [facility] Last Admin: 01/22/17 06:01 Dose: 25 mcg Methylprednisolone Sodium Succinate (Solu-Medrol -) 40 mg IVPB Q6H-IV [facility] Last Admin: 01/22/17 14:32 Dose: 40 mg Mirtazapine (Remeron -) 30 mg PO HS [facility] Last Admin: 01/21/17 21:24 Dose: 30 mg Mupirocin (Bactroban Ointment (For Decolonization) -) 1 applic NS BID [facility] Stop: 01/24/17 09:59 Last Admin: 01/22/17 09:00 Dose: Not Given Sodium Chloride (Normal Saline -) 500 ml IV Q20M PRN PRN Reason: MAP<65mm Hg OR SBP <90 Last Admin: 01/18/17 21:17 Dose: 500 ml a/p extubate and transferred to floor s/p resp failure and intubation pneumonia copd exacerbation continue ceftaroline Day #2
--- NOTE | 2017-01-22 17:55 | PN ---
Progress Note, Physician Chief Complaint: AWAKE FAMILY BEDSIDE O2 NC - Current Medication List Current Medications: Active Medications Acetaminophen (Tylenol -) 650 mg PO Q6H PRN PRN Reason: FEVER OR PAIN Last Admin: 01/22/17 10:00 Dose: 650 mg Albuterol/Ipratropium (Duoneb -) 1 amp NEB Q4H PRN PRN Reason: SHORTNESS OF BREATH Arformoterol Tartrate (Brovana (Restricted To Pulmonology/Resp) -) 1 amp NEB BID [facility] Last Admin: 01/22/17 09:46 Dose: 1 amp Chlorhexidine Gluconate (Hibiclens For Decolonization -) 1 applic TP HS [facility] Last Admin: 01/21/17 21:24 Dose: 1 applic Heparin Sodium (Porcine) (Heparin -) 5,000 unit SQ TID [facility] Last Admin: 01/22/17 14:32 Dose: 5,000 unit Famotidine/Sodium Chloride (Pepcid 20 Mg Premixed Ivpb -) 50 mls @ 100 mls/hr IVPB BID [facility] Last Admin: 01/22/17 09:07 Dose: 100 mls/hr Ceftaroline Fosamil 600 mg/ (Dextrose) 100 mls @ 100 mls/hr IVPB BID [facility] PRN Reason: Protocol Last Admin: 01/22/17 09:07 Dose: 100 mls/hr Levothyroxine Sodium (Synthroid -) 25 mcg PO DAILY@0700 [facility] Last Admin: 01/22/17 06:01 Dose: 25 mcg Methylprednisolone Sodium Succinate (Solu-Medrol -) 40 mg IVPB Q6H-IV [facility] Last Admin: 01/22/17 14:32 Dose: 40 mg Mirtazapine (Remeron -) 30 mg PO HS [facility] Last Admin: 01/21/17 21:24 Dose: 30 mg Mupirocin (Bactroban Ointment (For Decolonization) -) 1 applic NS BID [facility] Stop: 01/24/17 09:59 Last Admin: 01/22/17 09:00 Dose: Not Given Sodium Chloride (Normal Saline -) 500 ml IV Q20M PRN PRN Reason: MAP<65mm Hg OR SBP <90 Last Admin: 01/18/17 21:17 Dose: 500 ml - Objective Vital Signs: Vital Signs Temperature 99.7 F H 01/22/17 15:00 Pulse Rate 83 07/03/17 15:00 Respiratory Rate 20 01/22/17 15:00 Blood Pressure 122/66 01/22/17 15:00 O2 Sat by Pulse Oximetry (%) 98 01/22/17 10:00 Constitutional: Yes: Mild Distress Eyes: Yes: WNL HENT: Yes: WNL Neck: Yes: WNL Cardiovascular: Yes: Pulse Irregular Respiratory: Yes: On Nasal O2, Poor Air Entry, SOB Gastrointestinal: Yes: WNL Genitourinary: Yes: Incontinence Musculoskeletal: Yes: Muscle Weakness Extremities: Yes: WNL Edema: No Peripheral Pulses WNL: Yes Integumentary: Yes: WNL Wound/Incision: Yes: Clean/Dry Neurological: Yes: Pre-Existing Deficit ...Motor Strength: LLE, RLE Psychiatric: Yes: Other Labs: CBC, BMP 01/22/17 05:36 01/22/17 05:36 INR, PTT INR 1.10 (0.82-1.09) 01/18/17 20:55 Problem List - Problems (1) Aspiration pneumonia Code(s): J69.0 - PNEUMONITIS DUE TO INHALATION OF FOOD AND VOMIT Qualifiers: Aspiration pneumonia type: unspecified Laterality: bilateral Lung location: lower lobe of lung Qualified Code(s): J69.0 - Pneumonitis due to inhalation of food and vomit (2) Hypokalemia Code(s): E87.6 - HYPOKALEMIA (3) Acute on chronic respiratory failure with hypoxia and hypercapnia Code(s): J96.21 - ACUTE AND CHRONIC RESPIRATORY FAILURE WITH HYPOXIA J96.22 - ACUTE AND CHRONIC RESPIRATORY FAILURE WITH HYPERCAPNIA Assessment/Plan IV ABX NEBS 02 SUPPORT PULMONARY F/U WILL NEED BIPAP AT RETIREMENT FAMILY BEDSIDE, D/W THEM AND REVIEWED CASE
[2017-01-22] MEDS: CHLORHEXIDINE GLUCONATE 4% CLEANSER FOR DECOLONIZATION TP SCH (21:24)
[2017-01-22] MEDS: MIRTAZAPINE 15 MG TABLET (FP) PO SCH (21:39)
[2017-01-23] MEDS: methylPREDNISolone NA SUCC 40 MG/1 ML VIAL IVPB SCH ×4 (02:55→21:20)
[2017-01-23] MEDS: LEVOTHYROXINE NA 25 MCG TABLET (FP) PO SCH (06:03)
[2017-01-23] MEDS: HEPARIN NA (PORCINE) 5,000 UNITS/ML 1ML VIAL SQ SCH ×3 (06:03→21:21)
[2017-01-23 07:26] LABS: MCH 29.8 pg (25.7-33.7); MCHC 33.2 g/dl (32.0-36.0); MEAN CELL VOLUME 89.8 fl (80-96); MEAN PLT VOLUME 6.6 fl (7.5-11.1); PLATELET COUNT 420 K/MM3 (134-434); RDW 15.2 % (11.6-15.6); WHITE BLOOD COUNT 10.5 K/mm3 (4.0-10.0)
[2017-01-23 07:55] LABS: CALCIUM 8.4 mg/dL (8.5-10.1); CREATININE 0.2 mg/dL (0.55-1.02); GLUCOSE,RANDOM 202 mg/dL (74-106); MAGNESIUM 1.8 mg/dL (1.8-2.4)
[2017-01-23] MEDS ORDERED: PT OWN MED DRAWER 7, Y5N ONE ×2 (08:15→21:02)
[2017-01-23 08:22] LABS: ANION GAP -2 (8-16); CO2 51 mmol/L (21-32)
[2017-01-23] MEDS: CEFTAROLINE FOSAMIL ACETATE 600 MG in DEXTROSE 5%-WATER - 100 ML IVPB SCH ×2 (09:01→21:20)
[2017-01-23] MEDS: MUPIROCIN 2% TOPICAL OINTMENT FOR DECOLONIZATION NS SCH (09:02)
[2017-01-23] MEDS: FAMOTIDINE 20 MG/50 ML IVPB 50 ML IVPB SCH ×2 (09:03→21:20)
[2017-01-23] MEDS: ACETAMINOPHEN 325 MG TABLET (FP) PO PRN (09:12)
[2017-01-23] MEDS: ARFORMOTEROL TARTRATE 15 MCG/2 ML VIAL NEB SCH ×2 (10:05→22:03)
--- NOTE | 2017-01-23 10:27 | PN ---
Progress Note, Physician History of Present Illness: AWAKE --FEELS BETTER - Current Medication List Current Medications: Active Medications Acetaminophen (Tylenol -) 650 mg PO Q6H PRN PRN Reason: FEVER OR PAIN Last Admin: 01/23/17 09:12 Dose: 650 mg Albuterol/Ipratropium (Duoneb -) 1 amp NEB Q4H PRN PRN Reason: SHORTNESS OF BREATH Arformoterol Tartrate (Brovana (Restricted To Pulmonology/Resp) -) 1 amp NEB BID [facility] Last Admin: 01/22/17 22:20 Dose: 1 amp Chlorhexidine Gluconate (Hibiclens For Decolonization -) 1 applic TP HS [facility] Last Admin: 01/22/17 21:24 Dose: Not Given Heparin Sodium (Porcine) (Heparin -) 5,000 unit SQ TID [facility] Last Admin: 01/23/17 06:03 Dose: 5,000 unit Famotidine/Sodium Chloride (Pepcid 20 Mg Premixed Ivpb -) 50 mls @ 100 mls/hr IVPB BID [facility] Last Admin: 01/23/17 09:03 Dose: 100 mls/hr Ceftaroline Fosamil 600 mg/ (Dextrose) 100 mls @ 100 mls/hr IVPB BID [facility] PRN Reason: Protocol Last Admin: 01/23/17 09:01 Dose: 100 mls/hr Levothyroxine Sodium (Synthroid -) 25 mcg PO DAILY@0700 [facility] Last Admin: 01/23/17 06:03 Dose: 25 mcg Methylprednisolone Sodium Succinate (Solu-Medrol -) 40 mg IVPB Q6H-IV [facility] Last Admin: 01/23/17 08:14 Dose: 40 mg Mirtazapine (Remeron -) 30 mg PO HS [facility] Last Admin: 01/22/17 21:39 Dose: 30 mg Mupirocin (Bactroban Ointment (For Decolonization) -) 1 applic NS BID [facility] Stop: 01/24/17 09:59 Last Admin: 01/23/17 09:02 Dose: Not Given Sodium Chloride (Normal Saline -) 500 ml IV Q20M PRN PRN Reason: MAP<65mm Hg OR SBP <90 Last Admin: 01/18/17 21:17 Dose: 500 ml - Objective Vital Signs: Vital Signs Temperature 99.0 F 01/23/17 09:00 Pulse Rate 95 H 01/23/17 09:00 Respiratory Rate 20 01/23/17 09:00 Blood Pressure 130/69 01/23/17 09:00 O2 Sat by Pulse Oximetry (%) 98 01/23/17 09:00 Cardiovascular: Yes: Regular Rate and Rhythm Respiratory: Yes: Regular, CTA Bilaterally Gastrointestinal: Yes: Normal Bowel Sounds, Soft. No: Tenderness Edema: No Labs: CBC, BMP 01/23/17 05:35 01/23/17 05:35 INR, PTT INR 1.10 (0.82-1.09) 01/18/17 20:55 Problem List - Problems (1) Aspiration pneumonia Assessment/Plan: IV ANTIBIOTICS ID CONSULT NOTED OFF VENT Code(s): J69.0 - PNEUMONITIS DUE TO INHALATION OF FOOD AND VOMIT Qualifiers: Aspiration pneumonia type: unspecified Laterality: bilateral Lung location: lower lobe of lung Qualified Code(s): J69.0 - Pneumonitis due to inhalation of food and vomit (2) Acute on chronic respiratory failure with hypoxia and hypercapnia Assessment/Plan: OFF VENT--DNR/DNI PULM NEBS STEROIDS Code(s): J96.21 - ACUTE AND CHRONIC RESPIRATORY FAILURE WITH HYPOXIA J96.22 - ACUTE AND CHRONIC RESPIRATORY FAILURE WITH HYPERCAPNIA (3) Hypokalemia Assessment/Plan: REPLACE K AND MAG Code(s): E87.6 - HYPOKALEMIA (4) Lung nodule Assessment/Plan: R/O METS-WILL NEED W/U PULMONARY CONSULT NOTED Code(s): R91.1 - SOLITARY PULMONARY NODULE (5) Sepsis Assessment/Plan: ABX CULTURES Code(s): A41.9 - SEPSIS, UNSPECIFIED ORGANISM
--- NOTE | 2017-01-23 10:49 | PN ---
Progress Note (short form) - Note Progress Note: alert, comfortable moist cough with yellow sputum Vital Signs Period Temp Pulse Resp BP Sys/Kennedy Pulse Ox Last 24 Hr 99.0 F-100.0 F 80-95 20-20 122-135/66-74 97-98 cor-rrr lungs bilateral rhonchi abd soft,nt ext no edema CBC, BMP 01/23/17 05:35 01/23/17 05:35 Microbiology 01/18/17 20:55 Blood Culture - Preliminary Blood - Peripheral Venous NO GROWTH OBTAINED AFTER 96 HOURS, INCUBATION TO CONTINUE FOR 1 DAYS. 01/18/17 20:55 Blood Culture - Preliminary Blood - Peripheral Venous NO GROWTH OBTAINED AFTER 96 HOURS, INCUBATION TO CONTINUE FOR 1 DAYS. a/p s/p resp failure and intubation-now extubated pneumonia-MRSA copd exacerbation continue ceftaroline Day #3 incentive spirometry
[2017-01-23] MEDS: MIRTAZAPINE 15 MG TABLET (FP) PO SCH (21:21)
[2017-01-24] MEDS: methylPREDNISolone NA SUCC 40 MG/1 ML VIAL IVPB SCH ×4 (02:13→21:30)
[2017-01-24] MEDS: HEPARIN NA (PORCINE) 5,000 UNITS/ML 1ML VIAL SQ SCH ×3 (06:29→21:30)
[2017-01-24] MEDS: LEVOTHYROXINE NA 25 MCG TABLET (FP) PO SCH (06:29)
[2017-01-24] MEDS ORDERED: PT OWN MED DRAWER 7, Y5N ONE ×2 (09:40→21:21)
[2017-01-24] MEDS: CEFTAROLINE FOSAMIL ACETATE 600 MG in DEXTROSE 5%-WATER - 100 ML IVPB SCH ×2 (10:06→22:05)
[2017-01-24] MEDS: ARFORMOTEROL TARTRATE 15 MCG/2 ML VIAL NEB SCH ×2 (10:15→22:15)
[2017-01-24] MEDS: ACETAMINOPHEN 325 MG TABLET (FP) PO PRN ×2 (11:08→21:29)
[2017-01-24] MEDS: FAMOTIDINE 20 MG/50 ML IVPB 50 ML IVPB SCH ×2 (11:08→21:30)
--- NOTE | 2017-01-24 11:27 | PN ---
Progress Note, Physician Chief Complaint: AWAKE ALERT FEELING BETTER ON 02 EVENTS REVIEWED - Current Medication List Current Medications: Active Medications Acetaminophen (Tylenol -) 650 mg PO Q6H PRN PRN Reason: FEVER OR PAIN Last Admin: 01/24/17 11:08 Dose: 650 mg Arformoterol Tartrate (Brovana (Restricted To Pulmonology/Resp) -) 1 amp NEB BID [facility] Last Admin: 01/23/17 22:03 Dose: 1 amp Heparin Sodium (Porcine) (Heparin -) 5,000 unit SQ TID [facility] Last Admin: 01/24/17 06:29 Dose: 5,000 unit Famotidine/Sodium Chloride (Pepcid 20 Mg Premixed Ivpb -) 50 mls @ 100 mls/hr IVPB BID [facility] Last Admin: 01/24/17 11:08 Dose: 100 mls/hr Ceftaroline Fosamil 600 mg/ (Dextrose) 100 mls @ 100 mls/hr IVPB BID [facility] PRN Reason: Protocol Last Admin: 01/24/17 10:06 Dose: 100 mls/hr Levothyroxine Sodium (Synthroid -) 25 mcg PO DAILY@0700 [facility] Last Admin: 01/24/17 06:29 Dose: 25 mcg Methylprednisolone Sodium Succinate (Solu-Medrol -) 40 mg IVPB Q6H-IV [facility] Last Admin: 01/24/17 10:15 Dose: 40 mg Mirtazapine (Remeron -) 30 mg PO HS [facility] Last Admin: 01/23/17 21:21 Dose: 30 mg Sodium Chloride (Normal Saline -) 500 ml IV Q20M PRN PRN Reason: MAP<65mm Hg OR SBP <90 Last Admin: 01/18/17 21:17 Dose: 500 ml - Objective Vital Signs: Vital Signs Temperature 97.3 F L 01/24/17 09:55 Pulse Rate 95 H 01/24/17 09:55 Respiratory Rate 18 01/24/17 09:55 Blood Pressure 122/68 01/24/17 09:55 O2 Sat by Pulse Oximetry (%) 96 01/23/17 22:00 Constitutional: Yes: No Distress Eyes: Yes: WNL HENT: Yes: WNL Neck: Yes: WNL Cardiovascular: Yes: WNL Respiratory: Yes: On Nasal O2, SOB Gastrointestinal: Yes: WNL Genitourinary: Yes: WNL Musculoskeletal: Yes: Muscle Weakness Extremities: Yes: WNL Edema: No Peripheral Pulses WNL: Yes Integumentary: Yes: WNL Wound/Incision: Yes: Clean/Dry Neurological: Yes: Pre-Existing Deficit ...Motor Strength: LLE, RLE Psychiatric: Yes: Other Labs: CBC, BMP 01/23/17 05:35 01/23/17 05:35 INR, PTT INR 1.10 (0.82-1.09) 01/18/17 20:55 Problem List - Problems (1) Aspiration pneumonia Code(s): J69.0 - PNEUMONITIS DUE TO INHALATION OF FOOD AND VOMIT Qualifiers: Aspiration pneumonia type: unspecified Laterality: bilateral Lung location: lower lobe of lung Qualified Code(s): J69.0 - Pneumonitis due to inhalation of food and vomit (2) Hypokalemia Code(s): E87.6 - HYPOKALEMIA (3) Acute on chronic respiratory failure with hypoxia and hypercapnia Code(s): J96.21 - ACUTE AND CHRONIC RESPIRATORY FAILURE WITH HYPOXIA J96.22 - ACUTE AND CHRONIC RESPIRATORY FAILURE WITH HYPERCAPNIA Assessment/Plan SWALLOW EVAL R/O ASPIRATIONS IV ABX PLEASE DEFINE PER ID FOR DURATION PULM F/U FOR BIPAP OUTPATIENT PT OOB TO CHAIR
--- NOTE | 2017-01-24 11:59 | CONSULT ---
Admitting History and Physical - Primary Care Physician PCP: Candi Alfred - Admission History of Present Illness: Per EMR: "- Admission History of Present Illness: 71 year old woman resident from [facility] with past medical hx notable for COPD (40+ pack year hx of tobacco, 3 previous intubations, chronic steroids) , HTN, ulcerative colitis, anxiety, schizophrenia who presented to ED via EMS after being found unresponsive. EMS called by group home this evening around 7 , pt was found unresponive in her room. She was only opening eyes to noxious stimuli, Spo2 was 100 on NC at 4 L. Was given narcan without improvement. BVM was initiated and pt was urgently transferred to ED here. Pt was non-responsive and with poor to non-existent respiratory drive. She was intubated using RSI, large volume of stomach content aspirated from ETT. ABG/chemistry revealed acute on chronic resp failure (7.28/100, Hco3 50). She was febrile and wbc was 20K, see cxl done and started on broad spectrum abx (Vanc and PT) and sedated with Versed. CT head and Chest performed. Head w/o large obvious infarct and chest showing significant emphysema, small R LL pna/atelectesis, some fluid in fissure on L, no pneumothorax (my reads). UA had 7wbc but neg LE, neg Nit. " Extubated 01/20. Soft diet/thin liquid ordered. Selected Entries 01/22/17 01/22/17 01/22/17 05:52 10:00 15:00 Breakfast Lunch Supper Temperature 98.6 F 98.2 F 99.7 F H 01/22/17 01/22/17 01/23/17 18:34 21:00 09:00 Breakfast Lunch Supper 50% Temperature 99.6 F 100.0 F H 99.0 F 01/23/17 01/23/17 01/24/17 14:18 18:00 06:00 Breakfast 75% Lunch 75% Supper 75% Temperature 98.2 F 99.8 F H 98.9 F 01/24/17 01/24/17 09:36 09:55 Breakfast 75% Lunch Supper Temperature 97.3 F L Laboratory Tests 01/21/17 01/22/17 01/23/17 05:25 05:36 05:35 WBC 8.9 10.6 H 10.5 H Family reports that she has been intubated 4 times with PNA since 2013. History Source: Patient, Family Member, Medical Record - Past Medical History Cardiovascular: Yes: HTN Pulmonary: Yes: COPD Gastrointestinal: Yes: Ulcerative Colitis Renal/: Yes: Other (hyponatremia) ...: No Psych: Yes: Anxiety, Depression, Schizophrenia - Smoking History Smoking history: Unknown if ever smoked Have you smoked in the past 12 months: No Aproximately how many cigarettes per day: 0 If you are a former smoker, when did you quit?: 3 years ago - Alcohol/Substance Use Hx Alcohol Use: No History - Admission Reason For Visit: ASPIRATION PNEUMONIA - Diagnostics CT Scan: Report Reviewed (right upper lobe spiculated mass seen on CT chest) Modified Barium Swallow: Report Reviewed (2014-nasal regurgitation- Thinned out puree/) - General Mental Status: Alert and Oriented, Awake and Alert, Able to Follow Commands Attention: Intact Ability to Follow Directions: Good Head/Neck Control: WFL - Hearing Hearing: Normal Hearing Aide: No With Patient: No Speech Evaluation - Communication Primary Language: ARMENIAN Oral Expression Ability: Yes: Mild Impairment, Moderate Impairment - Speech Production Able to Make Needs Known: Yes: Mildly Impaired, Moderately Impaired Intelligibility: Yes: Mildly Impaired, Moderately Impaired - Speech Characteristics Voice Loudness: Mildly Soft/Quiet Voice Pitch: Yes: Moderately High Voice Phonatory-based Quality: Yes: Dysphonia Speech Pattern: Impaired Speech Clarity: < 50% Nasal Resonance: Hypernasal (?) Articulation: Yes: Imprecise Rate of Speech: Too Fast - Language/Auditory Comprehension Follows: Yes: 1 Stage Simple Commands Observation: Able to respond to yes/no queries: Yes, Yes/No Confusion: No, Comprehends Conversational Speech: Yes - Language/Verbal Expression Able to Communicate Wants and Needs: Yes: WNL - Swallow Evaluation/Bedside Assessment Current Nutritional Intake: Soft, Thin Liquids Oral Secretions: Yes: WFL Dentition: Yes: Edentulous Facial Symmetry at Rest: Symmetrical Facial Symmetry on Retraction: Symmetrical Pucker Lips: Normal Smile: Normal Lingual Movement: Symmetric Lingual Speed of Movement: Normal Lingual Movement Strgth Against Opposition: Reduced Lingual Movement Characteristics: Normal Velopharyngeal Movement: Reduced Elevation (suspected) Laryngeal Movement: Able to Palpate Bolus Size: WFL Labial Seal: WFL Chewing: Impaired Oral Prep Time: Increased A-P Transit: Impaired Timing of Swallow: Delayed Coughing/Throat Clear: No Change in Voice: No Recommendations - Speech Evaluation, Impression/Plan Impression: r/o nasal pharyngeal regurgitation/stasis/aspiration - Dysphagia Impressions/Plan Dysphagia Impressions: Ongoing Evaluation *Silent aspiration: cannot be R/O at bedside Recommendations: XIAO Fajardo
--- NOTE | 2017-01-24 12:23 | PN ---
Progress Note, Physician History of Present Illness: PULMONARY ALERT,NAD,COMFORTABLE,-TACHYPNEA - Current Medication List Current Medications: Active Medications Acetaminophen (Tylenol -) 650 mg PO Q6H PRN PRN Reason: FEVER OR PAIN Last Admin: 01/24/17 11:08 Dose: 650 mg Arformoterol Tartrate (Brovana (Restricted To Pulmonology/Resp) -) 1 amp NEB BID [facility] Last Admin: 01/23/17 22:03 Dose: 1 amp Heparin Sodium (Porcine) (Heparin -) 5,000 unit SQ TID [facility] Last Admin: 01/24/17 06:29 Dose: 5,000 unit Famotidine/Sodium Chloride (Pepcid 20 Mg Premixed Ivpb -) 50 mls @ 100 mls/hr IVPB BID [facility] Last Admin: 01/24/17 11:08 Dose: 100 mls/hr Ceftaroline Fosamil 600 mg/ (Dextrose) 100 mls @ 100 mls/hr IVPB BID [facility] PRN Reason: Protocol Last Admin: 01/24/17 10:06 Dose: 100 mls/hr Levothyroxine Sodium (Synthroid -) 25 mcg PO DAILY@0700 [facility] Last Admin: 01/24/17 06:29 Dose: 25 mcg Methylprednisolone Sodium Succinate (Solu-Medrol -) 40 mg IVPB Q6H-IV [facility] Last Admin: 01/24/17 10:15 Dose: 40 mg Mirtazapine (Remeron -) 30 mg PO HS [facility] Last Admin: 01/23/17 21:21 Dose: 30 mg Sodium Chloride (Normal Saline -) 500 ml IV Q20M PRN PRN Reason: MAP<65mm Hg OR SBP <90 Last Admin: 01/18/17 21:17 Dose: 500 ml - Objective Vital Signs: Vital Signs Temperature 97.3 F L 01/24/17 09:55 Pulse Rate 95 H 01/24/17 09:55 Respiratory Rate 18 01/24/17 09:55 Blood Pressure 122/68 01/24/17 09:55 O2 Sat by Pulse Oximetry (%) 96 01/23/17 22:00 Constitutional: Yes: Calm, Thin Eyes: Yes: WNL HENT: Yes: WNL Neck: Yes: WNL Cardiovascular: Yes: Regular Rate and Rhythm, S1, S2 Respiratory: Yes: Diminished, Rhonchi (FEW SCATTERED RHONCHI) Gastrointestinal: Yes: Normal Bowel Sounds, Soft Extremities: Yes: WNL Edema: No Labs: CBC, BMP 01/23/17 05:35 01/23/17 05:35 INR, PTT INR 1.10 (0.82-1.09) 01/18/17 20:55 Assessment/Plan IMP: S/P Acute Respiratory Failure due to AE of COPD/PNA Suspected bilateral PNA Advanced COPD with chronic hypercapnea (?) Aspiration Right lung mass -> Suspected malignancy Electrolyte Imbalance Leukocytosis PLAN: ABX per ID Medrol taper BD TX Strict I&O GI and DVT prophylaxis Conservative management regarding lung mass in view multiple medical problems, advanced copd DR NUNO
--- NOTE | 2017-01-24 16:04 | PN ---
Progress Note (short form) - Note Progress Note: alert, comfortable NAD Vital Signs Period Temp Pulse Resp BP Sys/Kennedy Pulse Ox Last 24 Hr 97.3 F-99.8 F 87-95 16-18 122-148/68-89 95-96 cor-rrr lungs scattered rhonchi abd soft,nt ext no edema CBC, BMP 01/23/17 05:35 01/23/17 05:35 Current Medications Acetaminophen (Tylenol -) 650 mg PO Q6H PRN PRN Reason: FEVER OR PAIN Last Admin: 01/24/17 11:08 Dose: 650 mg Arformoterol Tartrate (Brovana (Restricted To Pulmonology/Resp) -) 1 amp NEB BID [facility] Last Admin: 01/24/17 10:15 Dose: Not Given Heparin Sodium (Porcine) (Heparin -) 5,000 unit SQ TID [facility] Last Admin: 01/24/17 15:39 Dose: 5,000 unit Famotidine/Sodium Chloride (Pepcid 20 Mg Premixed Ivpb -) 50 mls @ 100 mls/hr IVPB BID [facility] Last Admin: 01/24/17 11:08 Dose: 100 mls/hr Ceftaroline Fosamil 600 mg/ (Dextrose) 100 mls @ 100 mls/hr IVPB BID [facility] PRN Reason: Protocol Last Admin: 01/24/17 10:06 Dose: 100 mls/hr Levothyroxine Sodium (Synthroid -) 25 mcg PO DAILY@0700 [facility] Last Admin: 01/24/17 06:29 Dose: 25 mcg Methylprednisolone Sodium Succinate (Solu-Medrol -) 40 mg IVPB Q6H-IV [facility] Last Admin: 01/24/17 15:39 Dose: 40 mg Mirtazapine (Remeron -) 30 mg PO HS [facility] Last Admin: 01/23/17 21:21 Dose: 30 mg Sodium Chloride (Normal Saline -) 500 ml IV Q20M PRN PRN Reason: MAP<65mm Hg OR SBP <90 Last Admin: 01/18/17 21:17 Dose: 500 ml a/p s/p resp failure and intubation-now extubated pneumonia-MRSA copd exacerbation continue ceftaroline Day #4- day 5 antibiotics incentive spirometry
[2017-01-24 17:18] LABS: ANION GAP 6 (8-16); CALCIUM 8.5 mg/dL (8.5-10.1); CO2 44 mmol/L (21-32); CREATININE < 0.2 mg/dL (0.55-1.02); GLUCOSE,RANDOM 97 mg/dL (74-106)
[2017-01-24] MEDS: MIRTAZAPINE 15 MG TABLET (FP) PO SCH (21:29)
[2017-01-25] MEDS: methylPREDNISolone NA SUCC 40 MG/1 ML VIAL IVPB SCH ×2 (02:06→08:57)
[2017-01-25] MEDS: LEVOTHYROXINE NA 25 MCG TABLET (FP) PO SCH (06:25)
[2017-01-25] MEDS: HEPARIN NA (PORCINE) 5,000 UNITS/ML 1ML VIAL SQ SCH (06:25)
[2017-01-25] MEDS: ACETAMINOPHEN 325 MG TABLET (FP) PO PRN (08:56)
[2017-01-25] MEDS: CEFTAROLINE FOSAMIL ACETATE 600 MG in DEXTROSE 5%-WATER - 100 ML IVPB SCH (09:04)
[2017-01-25] MEDS: FAMOTIDINE 20 MG/50 ML IVPB 50 ML IVPB SCH (09:04)
--- NOTE | 2017-01-25 09:54 | PN ---
Progress Note, Physician Chief Complaint: ID Counting vancomycin and Ceftaroline ( current) day 7 antibiotics Remains stable - Current Medication List Current Medications: Active Medications Acetaminophen (Tylenol -) 650 mg PO Q6H PRN PRN Reason: FEVER OR PAIN Last Admin: 01/25/17 08:56 Dose: 650 mg Arformoterol Tartrate (Brovana (Restricted To Pulmonology/Resp) -) 1 amp NEB BID [facility] Last Admin: 01/24/17 22:15 Dose: 1 amp Heparin Sodium (Porcine) (Heparin -) 5,000 unit SQ TID [facility] Last Admin: 01/25/17 06:25 Dose: 5,000 unit Famotidine/Sodium Chloride (Pepcid 20 Mg Premixed Ivpb -) 50 mls @ 100 mls/hr IVPB BID [facility] Last Admin: 01/25/17 09:04 Dose: 100 mls/hr Ceftaroline Fosamil 600 mg/ (Dextrose) 100 mls @ 100 mls/hr IVPB BID [facility] PRN Reason: Protocol Last Admin: 01/25/17 09:04 Dose: 100 mls/hr Levothyroxine Sodium (Synthroid -) 25 mcg PO DAILY@0700 [facility] Last Admin: 01/25/17 06:25 Dose: 25 mcg Methylprednisolone Sodium Succinate (Solu-Medrol -) 40 mg IVPB Q6H-IV [facility] Last Admin: 01/25/17 08:57 Dose: 40 mg Mirtazapine (Remeron -) 30 mg PO HS [facility] Last Admin: 01/24/17 21:29 Dose: 30 mg Sodium Chloride (Normal Saline -) 500 ml IV Q20M PRN PRN Reason: MAP<65mm Hg OR SBP <90 Last Admin: 01/18/17 21:17 Dose: 500 ml - Objective Vital Signs: Vital Signs Temperature 99.6 F 01/25/17 08:57 Pulse Rate 89 01/25/17 08:57 Respiratory Rate 19 01/25/17 08:57 Blood Pressure 136/72 01/25/17 08:57 O2 Sat by Pulse Oximetry (%) 96 01/24/17 20:52 Constitutional: Yes: No Distress Cardiovascular: Yes: Regular Rate and Rhythm, S1, S2 Respiratory: Yes: WNL, Regular, CTA Bilaterally, Rhonchi Gastrointestinal: Yes: WNL, Normal Bowel Sounds, Soft. No: Tenderness Edema: No Labs: CBC, BMP 01/23/17 05:35 01/24/17 15:50 INR, PTT INR 1.10 (0.82-1.09) 01/18/17 20:55 Problem List - Problems (1) MRSA (methicillin resistant staph aureus) culture positive Code(s): Z22.322 - CARRIER OR SUSPECTED CARRIER OF METHICILLIN RESIS STAPH (2) Acute on chronic respiratory failure with hypoxia and hypercapnia Code(s): J96.21 - ACUTE AND CHRONIC RESPIRATORY FAILURE WITH HYPOXIA J96.22 - ACUTE AND CHRONIC RESPIRATORY FAILURE WITH HYPERCAPNIA (3) COPD exacerbation Code(s): J44.1 - CHRONIC OBSTRUCTIVE PULMONARY DISEASE W (ACUTE) EXACERBATION Assessment/Plan Microbiology 01/19/17 21:10 Urine For Antigen Detection Legionella Antigen - Final 01/19/17 21:10 Urine For Antigen Detection Streptococcus pneumoniae Antigen (M - Final 01/19/17 12:15 Sputum - Endotrachea Suction/Ventilator Gram Stain - Final 01/19/17 12:15 Sputum - Endotrachea Suction/Ventilator Sputum Culture - Final Mr S Aureus 01/18/17 20:55 Urine - Urine Gonzales Urine Culture - Final NO GROWTH OBTAINED 01/18/17 20:55 Blood - Peripheral Venous Blood Culture - Final NO GROWTH AFTER 5 DAYS INCUBATION 01/18/17 20:55 Blood - Peripheral Venous Blood Culture - Final NO GROWTH AFTER 5 DAYS INCUBATION Laboratory Tests 01/23/17 01/24/17 05:35 15:50 WBC 10.5 H Hgb 9.8 L Hct 29.6 L Plt Count 420 Carbon Dioxide 44 H BUN 12 D Assessment Lower lobe consolidation / infiltrates COPD Lung mass MRSA sputum Ceftaroline Plan Duration of therapy the issue today Would continue current therapy until tomorrow then Bactrim Suspension x 5 days [place] ZIMMER
[2017-01-25] MEDS: ARFORMOTEROL TARTRATE 15 MCG/2 ML VIAL NEB SCH (10:14)
--- NOTE | 2017-01-25 10:54 | PN ---
Progress Note, ANAESTHETIC TECHNICIAN - Note Progress Note: Selected Entries 01/24/17 01/24/17 01/24/17 06:00 09:36 09:55 Breakfast 75% Lunch Supper Temperature 98.9 F 97.3 F L 01/24/17 01/24/17 01/24/17 12:25 14:26 18:00 Breakfast Lunch 75% Supper 100% Temperature 98.6 F 100.0 F H 01/24/17 01/25/17 01/25/17 21:00 06:00 08:57 Breakfast Lunch Supper Temperature 99.9 F H 98.3 F 99.6 F 01/25/17 09:52 Breakfast 75% Lunch Supper Temperature MBS reviewqed with staff. Monitor PO tolerance. Swallowing tx at [place].
--- NOTE | 2017-01-25 11:09 | DS ---
Physical Examination Vital Signs: Vital Signs Temperature 99.6 F 01/25/17 08:57 Pulse Rate 93 H 01/25/17 10:13 Respiratory Rate 19 01/25/17 08:57 Blood Pressure 136/72 01/25/17 08:57 O2 Sat by Pulse Oximetry (%) 95 01/25/17 10:13 Constitutional: Yes: No Distress Eyes: Yes: WNL HENT: Yes: WNL Neck: Yes: WNL Cardiovascular: Yes: WNL Respiratory: Yes: On Nasal O2, Poor Air Entry Gastrointestinal: Yes: WNL Renal/: Yes: WNL Musculoskeletal: Yes: Muscle Weakness Extremities: Yes: WNL Edema: No Peripheral Pulses WNL: Yes Integumentary: Yes: WNL Wound/Incision: Yes: Clean/Dry Neurological: Yes: Pre-Existing Deficit, Weakness ...Motor Strength: LLE, RLE Psychiatric: Yes: Other Labs: CBC, BMP 01/23/17 05:35 01/24/17 15:50 Discharge Summary Reason For Visit: ASPIRATION PNEUMONIA Current Active Problems Aspiration pneumonia (Acute) Hypokalemia (Acute) MRSA (methicillin resistant staph aureus) culture positive (Acute) Sepsis (Acute) Procedures: Principal: CT SCAN Other Procedures: LABS/CX Hospital Course: ADMITTED FOR RESP DISTRESS/INTUBATED ON VENT THEN EXTUBATED, NOW IN TELE, WILL NEED BIPAP OUTPATIENT AT [facility], BACTRIM DS BID 5 DAYS - Instructions Diet, Activity, Other Instructions: PUREE DYSPHAGIA NECTAR THICK LIQUIDS BIPAP PRN 5 DAYS BACTRIM DS Referrals: Eitan Jones [Primary Care Provider] - Disposition: [facility] - Home Medications Comprehensive Discharge Medication List: Ambulatory Orders Mirtazapine [Remeron -] 30 mg PO DAILY 10/03/16 Nitroglycerin [Nitrostat] 0.4 mg SL PRN PRN 10/03/16 Pantoprazole Sodium 40 mg PO DAILY 10/03/16 Tiotropium [place] [Spiriva] 18 mcg IH DAILY 10/03/16 Acetaminophen [Tylenol .Regular Strength -] 650 mg PO Q6H PRN #0 tablet Albuterol 0.083% Nebulizer Audra [Ventolin 0.083% Nebulizer Soln -] 1 amp NEB Q4H PRN #0 amp 10/09/16 Heparin - 5,000 unit SQ BID vial 10/09/16 Levothyroxine [Synthroid -] 25 mcg PO DAILY #30 tablet 10/09/16 Lorazepam [Ativan] 1 mg PO TID PRN #0 tablet MDD 3 10/09/16 Acetaminophen [Tylenol .Regular Strength -] 650 mg PO Q6H PRN #0 tablet Albuterol 2.5/Ipratropium 0.5 [Duoneb -] 1 amp NEB Q4H PRN #0 amp 01/25/17 Chlorhexidine Gluconate [Hibiclens For Decolonization -] 1 applic TP HS bottle 01/25/17 Heparin - 5,000 unit SQ TID vial 01/25/17 Mirtazapine [Remeron -] 30 mg PO HS tablet 01/25/17 Mupirocin Ointment [Bactroban Ointment (For Decolonization) -] 1 applic NS BID applic 01/25/17 Prednisone [Deltasone -] 40 mg PO DAILY #30 tablet 01/25/17 Sodium Chloride 1,000 gm PO TID #30 tab 01/25/17 Verapamil HCl [Verapamil ER] 60 mg PO DAILY #30 tab 01/25/17
--- NOTE | 2017-01-25 12:18 | PN ---
Progress Note (short form) - Note Progress Note: PULMONARY Denies shortness of breath. +mild cough. Last Vital Signs Temp Pulse Resp BP Pulse Ox 99.6 F 93 H 19 136/72 95 01/25/17 08:57 01/25/17 10:13 01/25/17 08:57 01/25/17 08:57 01/25/17 10:13 Gen: NAD at rest Heart: RRR Lung: scattered rhonchi Abd: soft, nontender Ext: no edema CBC, BMP 01/23/17 05:35 01/24/17 15:50 Active Medications Acetaminophen (Tylenol -) 650 mg PO Q6H PRN PRN Reason: FEVER OR PAIN Last Admin: 01/25/17 08:56 Dose: 650 mg Arformoterol Tartrate (Brovana (Restricted To Pulmonology/Resp) -) 1 amp NEB BID [facility] Last Admin: 01/25/17 10:14 Dose: 1 amp Heparin Sodium (Porcine) (Heparin -) 5,000 unit SQ TID [facility] Last Admin: 01/25/17 06:25 Dose: 5,000 unit Famotidine/Sodium Chloride (Pepcid 20 Mg Premixed Ivpb -) 50 mls @ 100 mls/hr IVPB BID [facility] Last Admin: 01/25/17 09:04 Dose: 100 mls/hr Ceftaroline Fosamil 600 mg/ (Dextrose) 100 mls @ 100 mls/hr IVPB BID [facility] PRN Reason: Protocol Last Admin: 01/25/17 09:04 Dose: 100 mls/hr Levothyroxine Sodium (Synthroid -) 25 mcg PO DAILY@0700 [facility] Last Admin: 01/25/17 06:25 Dose: 25 mcg Methylprednisolone Sodium Succinate (Solu-Medrol -) 40 mg IVPB Q6H-IV [facility] Last Admin: 01/25/17 08:57 Dose: 40 mg Mirtazapine (Remeron -) 30 mg PO HS [facility] Last Admin: 01/24/17 21:29 Dose: 30 mg Sodium Chloride (Normal Saline -) 500 ml IV Q20M PRN PRN Reason: MAP<65mm Hg OR SBP <90 Last Admin: 01/18/17 21:17 Dose: 500 ml Trimethoprim/Sulfamethoxazole (Bactrim Ds -) 1 each PO BID [facility] A/P Pneumonia COPD Acute on Chronic Hypoxic and Hypercapneic Respiratory Failure improving Lung Mass likely malignant - complete antibiotics - aspiration precautions - change steroids to PO and taper as outpt - BiPAP as needed - o2 to keep SpO2 >90% - DVT prophylaxis
[2017-01-25 13:35] VITALS: TEMP 99.2
[2017-01-25 13:37] VITALS: BP 138/73; PULSE 99
[2017-01-26] MEDS ORDERED: SULFAMETHOXAZOLE/TRIMETHOPRIM 800MG/160MG D.S. TABLET PO SCH (10:00)
== END 2017-01-25 14:01 | DRG 871 ==
LOC: JER 20:21 → JERBED 01-19 00:03 → UNDOADMIN 01-19 00:41 → JERBED 01-19 00:41 → JICU 01-19 01:21 → J4S 01-21 19:14
PROVIDERS: ADMIT Family Medicine; ATTEND Family Medicine
PROC: 5A1945Z Respiratory Ventilation, 24-96 Consecutive Hours (ICD-10-PCS; principal; 2017-01-19)
PROC: 0BH17EZ Insertion of Endotracheal Airway into Trachea, Via Natural or Artificial Opening (ICD-10-PCS; 2017-01-19)
DX: A41.9 Sepsis, unspecified organism (principal); J69.0 Pneumonitis due to inhalation of food and vomit; J96.22 Acute and chronic respiratory failure with hypercapnia; R65.21 Severe sepsis with septic shock; J96.21 Acute and chronic respiratory failure with hypoxia; J44.1 Chronic obstructive pulmonary disease with (acute) exacerbation; J90 Pleural effusion, not elsewhere classified; F20.9 Schizophrenia, unspecified; F41.9 Anxiety disorder, unspecified; F32.9 Major depressive disorder, single episode, unspecified; Z87.891 Personal history of nicotine dependence; I10 Essential (primary) hypertension; E87.6 Hypokalemia; R91.1 Solitary pulmonary nodule; Z88.0 Allergy status to penicillin; E87.8 Other disorders of electrolyte and fluid balance, not elsewhere classified; D72.829 Elevated white blood cell count, unspecified; E83.39 Other disorders of phosphorus metabolism; Z66 Do not resuscitate; B95.62 Methicillin resistant Staphylococcus aureus infection as the cause of diseases classified elsewhere
CPT/HCPCS: 36415; 36600; 70450-TC; 71010-TC; 71250-TC; 74230-TC; 80048; 80053; 81003; 81015; 82375; 82550; 82803; 83050; 83605; 83735; 84100; 84484; 85025; 85027; 85610; 85730; 86850; 86900; 86901; 87040; 87070; 87086; 87186; 87205; 87899; 92611-GN; 93005; 93010; 94002; 94010; 94640; 99285-25; J1644

== ENCOUNTER 2018-02-05 08:25 | Day surgery (SDC) | payer OTHER ==
[2018-02-04 17:09] VITALS: BMI 16.2
[2018-02-05 08:33] VITALS: TEMP 99.1
[2018-02-05 09:17] LABS: BASO % 0.7 % (0-2.0); EOS % 1.8 % (0-4.5); HEMATOCRIT 37.5 % (32.4-45.2); HEMOGLOBIN 12.5 GM/dL (10.7-15.3); LYMPH % 9.7 % (8-40); MCH 29.9 pg (25.7-33.7); MCHC 33.4 g/dl (32.0-36.0); MEAN CELL VOLUME 89.8 fl (80-96); MEAN PLT VOLUME 7.7 fl (7.5-11.1); MONO % 10.3 % (3.8-10.2); NEUT % 77.5 % (42.8-82.8); PLATELET COUNT 302 K/MM3 (134-434); RBC 4.17 M/mm3 (3.60-5.2); WHITE BLOOD COUNT 5.9 K/mm3 (4.0-10.0)
[2018-02-05 09:35] LABS: INR 1.06 (0.82-1.09)
[2018-02-05 15:39] VITALS: BP 120/70; PULSE 80
--- NOTE | 2018-02-07 14:39 | PATH ---
Surgical Pathology Report Patient Name: JENNY MANRIQUEZ [facility]. Rec. #: [id number] /Age/Gender: 1945 (Age: 72) / F Account: [id number] Location: Taken: 02/05/2018 Received: 02/05/2018 Reported: 02/07/2018 Physicians: My Heath Specimen(s) Received RIGHT LUNG BIOPSY Clinical History 72-year-old female with emphysema and large right lower lobe spiculated mass Final Diagnosis RIGHT LUNG, BIOPSY: FRAGMENTS OF FIBROUS TISSUE WITH CHRONIC INFLAMMATION AND HISTIOCYTIC REACTION (MULTINUCLEATED GIANT CELLS). Comment: PAS stain for fungal and AFB stain are negative. Immunostain CD68 highlights numerous histiocytes in the background; CK-7 is positive for reactive cells; TTF-1 is negative. Findings are suggestive of granulomatous inflammation. Correlate with other clinical data is recommended. Electronically Signed Delfino Call M.D. Gross Description Received in formalin labeled "right lung biopsy," 0.4 x 0.3 x 0.1 cm rutledge ceballos soft tissue fragments. The formalin is filtered and the specimen is entirely submitted in one cassette. DL/02/05/2018 saudi/02/05/2018
== END 2018-02-05 16:20 ==
LOC: JRADIR 08:25
PROVIDERS: ATTEND Nurse Practitioner Family
PROC: 0BBK3ZX Excision of Right Lung, Percutaneous Approach, Diagnostic (ICD-10-PCS; principal; 2018-02-05)
DX: D38.1 Neoplasm of uncertain behavior of trachea, bronchus and lung (principal); J43.9 Emphysema, unspecified
CPT/HCPCS: 32405; 36415; 71045-TC-FY; 76098-TC-FY; 77012-TC; 85025; 85610; 87899; 88305-TC; 88313-TC; 88341-TC

== ENCOUNTER 2019-02-10 08:34 | Day surgery (SDC) | payer OTHER ==
[2019-02-06 16:00] VITALS: BMI 17.5
[2019-02-10 10:36] LABS: BASO % 0.4 % (0-2.0); EOS % 1.6 % (0-4.5); HEMATOCRIT 36.9 % (32.4-45.2); HEMOGLOBIN 11.8 GM/dL (10.7-15.3); LYMPH % 8.6 % (8-40); MCH 28.3 pg (25.7-33.7); MCHC 31.9 g/dl (32.0-36.0); MEAN CELL VOLUME 88.6 fl (80-96); MEAN PLT VOLUME 7.2 fl (7.5-11.1); MONO % 8.3 % (3.8-10.2); NEUT % 81.1 % (42.8-82.8); PLATELET COUNT 322 K/MM3 (134-434); RBC 4.17 M/mm3 (3.60-5.2); RDW 14.2 % (11.6-15.6); WHITE BLOOD COUNT 7.7 K/mm3 (4.0-10.0)
[2019-02-10 10:50] LABS: INR 1.13 (0.83-1.09); PROTHROMBIN TIME (PATIENT) 13.4 SEC (9.7-13.0)
[2019-02-10 15:24] VITALS: BP 94/63; PULSE 95; TEMP 98.9
--- NOTE | 2019-02-12 16:22 | PATH ---
Surgical Pathology Report Patient Name: JENNY MANRIQUEZ [facility]. Rec. #: [id number] /Age/Gender: 1945 (Age: 73) / F Account: [id number] Location: RADIOLOGY INTER Taken: 02/10/2019 Received: 02/10/2019 Reported: 02/12/2019 Physicians: Yeyo Roman M.D. Specimen(s) Received RIGHT LUNG BIOPSY Clinical History Right lung mass Final Diagnosis LUNG, RIGHT, CORE BIOPSY: SQUAMOUS CELL CARCINOMA, POORLY DIFFERENTIATED. Comment: Immunohistochemical stains performed and interpreted at [facility] show the tumor is positive for P63 and have focal weak staining with TTF-1. Additional immunohistochemical stains performed at [place], [place] ([id number]) and interpreted at [facility] show the tumor is positive for p40, while negative for Napsin A. P63 and p40 positivity supports squamous differentiation. PDL-1 pending and will be reported separately. Findings discussed with Dr. Roman. Electronically Signed Francine Ballesteros M.D. Gross Description Received in formalin labeled "right lung biopsy," is a 1.0 x 0.5 x 0.1 cm aggregate of rutledge, irregular to cylindrical soft tissue fragments. The formalin is filtered and the specimen is entirely submitted in one cassette. /02/10/201902/10/2019
== END 2019-02-10 16:50 | disposition home or self-care (01) ==
LOC: JRADIR 08:34
PROVIDERS: ATTEND Internal Medicine Hematology & Oncology
PROC: BB24YZZ Computerized Tomography (CT Scan) of Bilateral Lungs using Other Contrast (ICD-10-PCS; principal; 2019-02-10)
PROC: 0BBK3ZX Excision of Right Lung, Percutaneous Approach, Diagnostic (ICD-10-PCS; 2019-02-10)
DX: C34.91 Malignant neoplasm of unspecified part of right bronchus or lung (principal)
CPT/HCPCS: 32405; 36415; 71046-TC-FY; 77012-TC; 85025; 85610; 88305-TC; 88341-TC; 88342-TC